=== PATIENT | male | born 1940 | race Caucasian/White ===

== ENCOUNTER 2022-01-21 14:21 | Emergency (ER) | payer MEDICARE, BC, SELFPAY ==
--- NOTE | 2022-01-21 14:37 | CRLHL7_ITS ---
For Patients: As a result of the Century Cures Act, medical imaging exams and procedure reports are released immediately into your electronic medical record. You may view this report before your referring provider. If you have questions, please contact your health care provider. INDICATION: Fall. COMPARISON: None. TECHNIQUE: CT of the head without IV contrast. Coronal and sagittal reconstructions. FINDINGS: No intracranial hemorrhage, mass effect, or evidence of acute infarct. No midline shift. No abnormal extra-axial fluid collections. Mild to moderate generalized cerebral and cerebellar volume loss with associated ex vacuo dilation of the lateral ventricles. Mild chronic small vessel ischemic disease. Intracranial vascular calcifications. Orbits and extraocular muscles are symmetric. The paranasal sinuses and mastoid air cells are clear. No acute fracture identified. Soft tissue swelling/hematoma overlying the left posterior parietal bone. IMPRESSION: : 1. No acute intracranial findings. 2. Mild to moderate generalized volume loss and mild chronic small vessel ischemic disease. 3. Soft tissue swelling/hematoma overlying the left posterior parietal bone. Please note that all CT scans at this facility use dose modulation, iterative reconstruction, and/or weight-based dosing when appropriate to reduce radiation dose to as low as reasonably achievable. Dictated by Ora Dimas MD @ 01/21/2022 3:04:29 PM (Electronically Signed)
--- NOTE | 2022-01-21 14:37 | CRLHL7_ITS ---
For Patients: As a result of the Century Cures Act, medical imaging exams and procedure reports are released immediately into your electronic medical record. You may view this report before your referring provider. If you have questions, please contact your health care provider. Indication: Trauma. Technique: CT of the cervical spine without IV contrast. Coronal and sagittal reconstructions. Comparison: None. Findings: No acute fracture or traumatic malalignment of the cervical spine. Chronic appearing mild anterior wedging C5. Normal vertebral body alignment. Straightening of the normal cervical lordosis. Spondylotic changes including endplate spurring, facet arthropathy, and disc space narrowing. Multilevel varying degrees of neural foraminal narrowing. Moderate spinal canal stenosis at C5-C6 and C6-C7. No prevertebral soft tissue swelling. Visualized intracranial contents are unremarkable. The mastoid air cells are clear. Right thyroid nodules measuring up to 2.4 cm in size. The imaged lung apices are clear. Partially visualized left chest pacemaker. Impression: 1. No acute fracture or traumatic malalignment of the cervical spine. 2. Spondylotic changes of the cervical spine as described above. 3. Right thyroid nodules measuring up to 2.4 cm in size. Please note that all CT scans at this facility use dose modulation, iterative reconstruction, and/or weight-based dosing when appropriate to reduce radiation dose to as low as reasonably achievable. Dictated by Ora Dimas MD @ 01/21/2022 3:14:02 PM (Electronically Signed)
--- NOTE | 2022-01-21 14:37 | CRLHL7_ITS ---
For Patients: As a result of the Century Cures Act, medical imaging exams and procedure reports are released immediately into your electronic medical record. You may view this report before your referring provider. If you have questions, please contact your health care provider. Indication: Trauma. Technique: CT of the lumbar spine without IV contrast. Coronal and sagittal reconstructions. Comparison: None. Findings: There are 5 lumbar type vertebral bodies. No acute fracture or traumatic malalignment of the lumbar spine. Vertebral body and disc space heights are well maintained. Normal vertebral body alignment. Multilevel endplate spurring and facet arthropathy. Disc bulge at L4-L5. Moderate to severe spinal canal stenosis at L2-L3, L3-L4, and L4-L5. No paravertebral soft tissue swelling. The visualized sacroiliac joints are normal in appearance. Aortoiliac vascular calcifications. Impression: 1. No acute fracture or traumatic malalignment of the lumbar spine. 2. 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 Please note that all CT scans at this facility use dose modulation, iterative reconstruction, and/or weight-based dosing when appropriate to reduce radiation dose to as low as reasonably achievable. Dictated by Ora Dimas MD @ 01/21/2022 3:35:13 PM (Electronically Signed)
--- NOTE | 2022-01-21 14:37 | CRLHL7_ITS ---
For Patients: As a result of the Century Cures Act, medical imaging exams and procedure reports are released immediately into your electronic medical record. You may view this report before your referring provider. If you have questions, please contact your health care provider. Indication: Trauma. Technique: CT of the thoracic spine without IV contrast. Coronal and sagittal reconstructions. Comparison: None. Findings: There are 12 rib-bearing thoracic type vertebral bodies. No acute fracture or traumatic malalignment of the thoracic spine. Chronic appearing minimal anterior wedging of a few lower thoracic vertebral bodies. Normal vertebral body alignment. Multilevel prominent endplate spurring. No significant spinal canal stenosis. No paravertebral soft tissue swelling. Right thyroid nodules measuring up to 2.4 cm in size. Left chest pacemaker. Coronary artery calcifications. Calcified right hilar lymph nodes compatible with prior granulomatous disease. Calcified granulomas right lung. Bibasilar atelectasis. Calcified splenic granulomas. Impression: 1. No acute fracture or traumatic malalignment of the thoracic spine. 2. Chronic appearing minimal anterior wedging of a few lower thoracic vertebral bodies. 3. Prominent multilevel endplate spurring. 4. Right thyroid nodules measuring up to 2.4 cm in size. Please note that all CT scans at this facility use dose modulation, iterative reconstruction, and/or weight-based dosing when appropriate to reduce radiation dose to as low as reasonably achievable. Dictated by Ora Dimas MD @ 01/21/2022 3:26:52 PM (Electronically Signed)
[2022-01-21 14:38] VITALS: BP 132/84; PULSE 63; RESP 18; TEMP 36.2; O2SAT 98; BMI 38.3
--- NOTE | 2022-01-21 15:08 | ED_ITS ---
HPI - General Adult General Chief complaint: Fall/Minor Trauma Stated complaint: Fall Time Seen by Provider: 01/21/22 14:26 Source: patient Mode of arrival: EMS Limitations: no limitations History of Present Illness HPI narrative: Patient is an 82-year-old male who, approximately 2-1/2 hours prior to presenting to the ER, was out in the field on his tractor when he fell off of the tractor. Patient states he lost his balance and fell backwards hitting his head on the ground. He is not sure if he lost consciousness, unsure how long he was out there. He remembers waking up and walking back inside the house. His called the neighbor who brought him to the clinic in [place]. From there, EMS was called and he was brought to the ER. He was complaining of a headache, nausea and neck discomfort to EMS. Now, upon arrival, he states that his headache is gone and he is no longer nauseated. He does have a cervical collar on which is causing him discomfort. He is also complaining of low back pain. He denies any loss of bowel or bladder function, he did not bite his tongue. He is not confused or foggy. TTA was called, patient arrived via EMS. Last tetanus was in 2008. Related Data Home Medications Medication Instructions Recorded Confirmed atorvastatin 80 mg tablet mg 01/21/22 glimepiride 4 mg tablet mg 01/21/22 insulin syringe-needle U-100 1/2 01/21/22 01/21/22 mL 31 gauge x 15/64 (BD Veo Insulin Syringe Ultra-Fine) isosorbide mononitrate 30 mg mg PO 01/21/22 tablet,extended release 24 hr lisinopril 10 mg tablet mg 01/21/22 metformin 1,000 mg tablet mg 01/21/22 metoprolol tartrate 25 mg tablet mg 01/21/22 Allergies Allergy/AdvReac Type Severity Reaction Status Date / Time No Known Drug Allergies Allergy Verified 01/21/22 14:43 Review of Systems Status of ROS: Reports: 10 or more systems reviewed and unremarkable except as noted in History and below Exam Narrative: Exam Narrative: GCS is 15. Patient is breathing and speaking without any difficulty. He does have some bleeding from the posterior parietal scalp. Overweight, well-developed patient in no acute distress. Alert and oriented x3. Answers questions appropriately. Mood and affect are appropriate. Thoughts are goal oriented and rational. No tangential or magical thinking noted. Patient speaks in full sentences without needing to catch his breath. HEENT: Normocephalic . Just less than 1 cm long Laceration to the left posterior parietal scalp area. Pupils are equally round reactive to light. Extraocular muscles are intact. Conjunctivae are moist without any icterus noted. Moist mucous membranes. Posterior pharynx is normal. Neck is soft without any lymphadenopathy or thyromegaly. No masses are appreciated. Cardiovascular: Heart is regular rate and rhythm S1 and S2 are present without any murmurs. Lungs: Clear to auscultation bilaterally no wheezes rhonchi or rales are appreciated. Patient takes deep breaths without any discomfort. Abdomen: Protuberant, Soft and nontender nondistended with normal bowel sounds. No guarding or rebound. Difficult to assess for organomegaly secondary to body habitus. Extremities: Bilateral lower extremities are without edema. Normal DP and PT pulses. Skin: Well perfused without any obvious rashes. Back: Cervical collar in place-No tenderness to palpation of the cervical, thoracic or lumbar spine. He has some para spinal muscular discomfort in the low back bilaterally. Const: Vital Signs, click to edit/add: Vital Signs - 24 hr 01/21/22 14:38 Temperature 97.1 F L Pulse Rate [Right Pulse Oximeter] 63 Respiratory Rate 18 Blood Pressure [Le ft Upper Arm] 132/84 Pulse Oximetry 98 Oxygen Delivery Me thod Room Air Course Course Hospital Course: Upon arrival, a very quick assessment was done and patient was sent to CT where he had a head in full spine CT imaging done given his complaints of headache, nausea and back pain. Imaging was unremarkable. Cervical collar was removed. Scalp laceration was cleaned and anesthetized with lidocaine with epinephrine. Running suture with 3.0 Prolene was placed. Laceration was dressed per nursing. Tetanus shot was updated. Vital Signs Vital signs: Initial Vital Signs Temperature 97.1 F L 01/21/22 14:38 Temperature Source Temporal Artery Scan 01/21/22 14:38 Pulse Rate 63 10 14:38 Respiratory Rate 18 01/21/22 14:38 Blood Pressure 132/84 01/21/22 14:38 Blood Pressure Mean 100 01/21/22 14:38 Blood Pressure Position Sitting 01/21/22 14:38 Pulse Oximetry 98 01/21/22 14:38 Oxygen Delivery Method 01/21/22 14:38 Vital Signs Temperature 97.1 F L 01/21/22 14:38 Pulse Rate 63 01/21/22 14:38 Respiratory Rate 18 01/21/22 14:38 Blood Pressure 132/84 01/21/22 14:38 Pulse Oximetry 98 01/21/22 14:38 Oxygen Delivery Method 01/21/22 14:38 Temperature 97.1 F L 01/21/22 14:38 Pulse Rate 63 01/21/22 14:38 Respiratory Rate 18 01/21/22 14:38 Blood Pressure 132/84 01/21/22 14:38 Pulse Oximetry 98 01/21/22 14:38 Oxygen Delivery Method 01/21/22 14:38 Medical Decision Making MDM Narrative Medical decision making narrative: 82-year-old male status post fall off a tractor with a scalp laceration. No evidence of fractures or hemorrhage. Remainder of exam unremarkable. We discussed wound hygiene, signs and symptoms of infections, reasons to return for follow-up. We discussed feel he will be have increased soreness tomorrow. Patient was agreeable and had no other questions. Medical Records Medical records reviewed: Yes I reviewed the patient's medical records Imaging Data CT scan - head: Attestation: I have reviewed the pertinent imaging results. My impression: No acute intracranial bleed Radiologist's impression: CT of the head without IV contrast. Coronal and sagittal reconstructions. FINDINGS: No intracranial hemorrhage, mass effect, or evidence of acute infarct. No midline shift. No abnormal extra-axial fluid collections. Mild to moderate generalized cerebral and cerebellar volume loss with associated ex vacuo dilation of the lateral ventricles. Mild chronic small vessel ischemic disease. Intracranial vascular calcifications. Orbits and extraocular muscles are symmetric.? The paranasal sinuses and mastoid air cells are? clear. No acute fracture identified. Soft tissue swelling/hematoma overlying the left posterior parietal bone. IMPRESSION: : 1. No acute intracranial findings. 2. Mild to moderate generalized volume loss and mild chronic small vessel ischemic disease. 3. Soft tissue swelling/hematoma overlying the left posterior parietal bone. Cervical spine CT: Attestation: I have reviewed the pertinent imaging results. Radiologist's impression: CT of the cervical spine without IV contrast. Coronal and sagittal reconstructions. Comparison: None. Findings: No acute fracture or traumatic malalignment of the cervical spine. Chronic appea ring mild anterior wedging C5. Normal vertebral body alignment. Straightening of the normal cervical lordosis. Spondylotic changes including endplate spurring, facet arthropathy, and disc space narrowing. Multilevel varying degrees of neural foraminal narrowing. Moderate spinal canal stenosis at C5-C6 and C6-C7. No prevertebral soft tissue swelling. Visualized intracranial contents are unremarkable. The mastoid air cells are clear. Right thyroid nodules measuring up to 2.4 cm in size. The imaged lung apices are clear. Partially visualized left chest pacemaker. Impression: 1. No acute fracture or traumatic malalignment of the cervical spine. 2. Spondylotic changes of the cervical spine as described above. 3. Right thyroid nodules measuring up to 2.4 cm in size. Thoracic spine CT: Attestation: I have reviewed the pertinent imaging results. Radiologist's impression: CT of the thoracic spine without IV contrast. Coronal and sagittal reconstructions. Comparison: None. Findings: There are 12 rib-bearing thoracic type vertebral bodies. No acute fracture or traumatic malalignment of the thoracic spine. Chronic appearing minimal anterior wedging of a few lower thoracic vertebral bodies. Normal vertebral body alignment. Multilevel prominent endplate spurring. No significant spinal canal stenosis. No paravertebral soft tissue swelling. Right thyroid nodules measuring up to 2.4 cm in size. Left chest pacemaker. Coronary artery calcifications. Calcified right hilar lymph nodes compatible with prior granulomatous disease. Calcified granulomas right lung. Bibasilar atelectasis. Calcified splenic granulomas. Impression: 1. No acute fracture or traumatic malalignment of the thoracic spine. 2. Chronic appearing minimal anterior wedging of a few lower thoracic vertebral bodies. 3. Prominent multilevel endplate spurring. 4. Right thyroid nodules measuring up to 2.4 cm in size. Lumbar spine CT: Attestation: I have reviewed the pertinent imaging results. Radiologist's impression: CT of the lumbar spine without IV contrast. Coronal and sagittal reconstructions. Comparison: None. Findings: There are 5 lumbar type vertebral bodies. No acute fracture or traumatic malalignment of the lumbar spine. Vertebral body and disc space heights are well maintained. Normal vertebral body alignment. Multilevel endplate spurring and facet arthropathy. Disc bulge at L4-L5. Moderate to severe spinal canal stenosis at L2-L3, L3-L4, and L4-L5. No paravertebral soft tissue swelling. The visualized sacroiliac joints are normal in appearance. Aortoiliac vascular calcifications. Impression: 1. No acute fracture or traumatic malalignment of the lumbar spine. 2. 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 Discharge Plan Discharge Clinical Impression: Fall, Laceration of scalp Patient Disposition: Home, Self-Care Condition: Improved Additional Instructions: Keep head clean and dry. Okay to shower like you normally would but be careful when you wash your hair not to snag the sutures. Sutures should come out in approximately 7 days-make an appointment with your primary care provider to have them removed in the clinic. Watch for signs of infection of the area which include redness or drainage of purulent material from the laceration. Expect to be more sore tomorrow especially around the neck and back area. You can use Tylenol and heat, do not apply heat directly to skin. If you develop increasing confusion, vomiting or lethargy return to the ER right away. Prescriptions: No Action atorvastatin 80 mg tablet Label Comments: TAKE ? TABLET BY MOUTH ONCE DAILY isosorbide mononitrate 30 mg tablet extended release 24 hr PO Label Comments: TAKE HALF TABLET BY MOUTH DAILY metformin 1,000 mg tablet Label Comments: TAKE 1 TABLET BY MOUTH TWICE DAILY with meals lisinopril 10 mg tablet Label Comments: TAKE 1 TABLET BY MOUTH DAILY glimepiride 4 mg tablet Label Comments: TAKE ONE TABLET BY MOUTH ONE TIME DAILY WITH FOOD metoprolol tartrate 25 mg tablet Label Comments: TAKE ONE TABLET BY MOUTH TWICE DAILY FOR BLOOD PRESSURE AND HEART (DME) insulin syringe-needle U-100 [BD Veo Insulin Syringe UF] 1/2 mL 31 gauge x 15/64 syringe MISCELLANEOUS Label Comments: use to inject insulin injections twice daily. Follow Up/Referrals: Trace Quijano MD [Primary Care Provider] - Stand Alone Forms: [facility] [employer] Info Instructions
--- OUTSIDE RECORDS SUMMARY | 2022-01-21 16:11 | XMS_ITS | Clinical Summary ---
:1940 Author Organization [facility] [place] [address] Care Team Providers Name Role Phone Trace Quijano MD Primary Care Provider [phone] Glenn Birch MD Unavailable Charlotte Ricks MD Unavailable Malachi Gonzales MD Unavailable Walt Garrido DPM Unavailable Sky Metcalf MD Unavailable Allergies No known active allergies Medications Medication Sig Dispensed Refills Start End Status Date Date BLOOD PRESSURE UUD 1 0 Activ e CUFFIndications: 7 Coronary atherosclerosis of unspecified type of vessel, [place] or graft, Unspecified essential hypertension DIABETIC As directed. 1 1 Each 0 Activ e SHOEIndications: diabetic pair of 2 Type II or shoes for home unspecified type use. Diagnosis diabetes mellitus Type 2 Diabetes with neurological mellitus. manifestations, not stated as uncontrolled(250.60 ) aspirin enteric Take 1 tablet by 0 Active coated (ECOTRIN) mouth once daily 5 325 mg tablet with a meal. medication order Eye 0 Act kamlesh composer multivitamin, 9 Focus miscellaneous As directed. 1 Each 0 Act [facility] supply Home blood 0 (BLOOD PRESSURE pressure CUFF) monitoring for miscIndications: Essential Essential hypertension hypertension Diagnosis. Upper arm automatic Cuff. nitroglycerin Place 1 Tablet 25 tablet. 3 Active (NITROSTAT) 0.4 mg (0.4 mg) under 1 sublingual the tongue every tabletIndications: 5 minutes if Atherosclerosis of needed for Chest coronary artery, Pain. Use up to angina presence 3 doses in 15 unspecified, minutes. unspecified vessel or lesion type, unspecified whether [place] or transplanted heart insulin For insulin 200 Each 3 Active syringe-needle injections twice 1 U-100 1/2 mL 31 daily. 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 Diagnosis 1 with neurological Type 2 Diabetes, manifestations, on insulin. Fast uncontrolled Click blood-glucose Dispense meter, 1 Each 0 Active meterIndications: test strips, 1 Diabetes mellitus lancets covered with neurological by pt ins. E11.9 manifestations, NIDDM type II - uncontrolled Test 2 times/day. Reason: low blood sugar and on insulin. Accucheck guide meter CPAPIndications: CPAP machine for 1 Each 11 Active GERMÁN (obstructive home use at 1 sleep apnea) pressure 10 cmw, full face mask x1/3month with a full face cushion x1/mo medication order Inject As 0 Act kamlesh composer Directed. 2 Patient gets lucentis injection into right eye every 3 months metFORMIN Take 1 Tablet 180 Tablet 2 Activ e (GLUCOPHAGE) 1,000 (1,000 mg) by 2 mg mouth 2 times tabletIndications: daily with Diabetes mellitus meals. For type 2 with diabetes. neurological manifestations (HC) lisinopriL Take 1 Tablet 90 tablet. 2 Acti ve (PRINIVIL; ZESTRIL) (10 mg) by mouth 2 10 mg once daily. For tabletIndications: blood pressure. Primary hypertension atorvastatin TAKE 1/2 90 tablet. 2 Active (LIPITOR) 80 mg (ONE-HALF) 2 tabletIndications: TABLET BY MOUTH Coronary artery ONCE DAILY FOR disease due to CHOLESTEROL lipid rich plaque blood sugar Test 2 times per 200 Each 3 A ctive diagnostic (Blood day. On insulin. 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 (HC) metoprolol tartrate Take 1 Tablet 180 Tablet 3 Active (LOPRESSOR) 50 mg (50 mg) by mouth 2 tabletIndications: 2 times daily. HTN (hypertension) isosorbide Take 0.5 Tablets 45 Tablet 3 Ac tive mononitrate (IMDUR) (15 mg) by mouth 2 30 mg extended once daily. release tablet 24 HourIndications: Coronary artery disease due to lipid rich plaque glimepiride TAKE ONE TABLET 90 Tablet 2 Ac tive (AMARYL) 4 mg BY MOUTH DAILY 2 tabletIndications: WITH A MEAL FOR Diabetes mellitus DIABETES type 2 with neurological manifestations (HC) insulin nph-regular INJECT 51 UNITS 60 mL 2 Active (NovoLIN 70/30 SUBCUTANEOUS IN 2 U-100 Insulin) 100 THE MORNING unit/mL (70-30) BEFORE MEALS. 46 injIndications: U IN THE EVENING Controlled type 2 W SUPPER MEAL. diabetes mellitus with complication, with long-term current use of insulin (HC) insulin nph-regular INJECT 44 UNITS 60 mL 2 12/16 Discontinued (NOVOLIN 70/30) 100 SUBCUTANEOUS 7 022 (Reorder unit/mL (70-30) TWICE DAILY (E -cancel not injectionIndication BEFORE MEALS sent)) s: Controlled type 2 diabetes mellitus with complication, with long-term current use of insulin (HC) Active Problems Problem Noted Date Major depressive disorder, single episode, mild 2021 Hyperparathyroidism, secondary renal 08/02/2021 Stage 3a chronic kidney disease 08/02/2021 Hyperopia of both eyes with astigmatism and presbyopia 04/27/2021 Pterygium eye, left 04/27/2021 Bilateral pseudophakia 04/27/2021 AMD (age-related macular degeneration), bilateral 04/17 Mild depression 03/29/2020 Morbid (severe) obesity due to excess calories 12/13/2 020 Presence of permanent cardiac pacemaker 10/14/2019 Overview: Formatting of this note is dif ferent from the original. September 2019: DCPPM placed for Chronotropic incompetence??and bradycardia (sinus node dysfunction) with evidence of junctional escape. Vitamin D deficiency 04/30/2018 Overview: August 2017: Vitamin D 19.5, April 2018: treating with Vitamin D 5,000 Units. Esophageal dysphagia 01/14/2017 Overview: Dec 2016: food getting stuck For years . Trying omeprazole. No previous EGD. GERMÁN 06/10/2002 AHI- 16 03/05/2015 Diabetic neuropathy, painful 10/05/2012 Adenomatous colon polyp 08/03/2012 Overview: Colonoscopy 07/2012 polyps, repeat in 5 y ears so due 2017. Pain in joint, shoulder region 07/04/2012 Overview: MRI Feb 2012 of Right shoulder; mild Sup raspinatus tendonopathy without tear and mild AC Joint DJD/subdeltoid bursitis. Obesity (BMI 30-39.9) 11/05/2010 Chronic kidney disease 01/07/2010 Overview: December 2009 and: Creatinine equals 1. 32. March 2010: Creatinine 1.52 and GFR: 45. May 2010: Creatinine 1.35 and GFR: 52. September 2012: Creatinine 1.32 and GFR: Jan: Creatinine 1.37 and GFR 51. Feb 2015: Creatinine 1.3 and GFR 53. September 2016: Creatinine 1.44 and GFR 48. Dec 2016: Creatinine 1.67, GFR 40. REfe rring to nephrology consult, saw Dr. Ricks for consult Jan 2017. July 2018: Creatinine 1.5, GFR 45. Hypotestosteronism 10/13/2009 Overview: [facility] 09/30/09: to do IM testosterone injections at [facility]? Erectile dysfunction 05/02/2008 Overview: ON smiley, seeing [facility]: November 03: cialis and pump. Follow up 06/17/09: checking testosterone. Low testosterone, replacement with injec tions started 09/30/09: see [facility] note. Cor athrscl-uns vessel 09/20/2006 Overview: ~ [address] Barnes. ~ 3 vessel bypass 06/16/06: HUNT to LAD an d Saph Vein to Obtuse [place] and PDA. VASCULAR CARE INITIATIVE ~ Jun 09: stress Cardiolite at [facility] Heart: no ischemia and Ejection fraction of 55% ~ October 2010: Thalium Stress Test: Medium sized ischemic defect involving the anterior, anterolateral, and inferolateral vieira. There is a very small amount of underlying infarction in the inferolateral wall associated with this defect. 2. 24- hour delayed imaging shows complete viability in the small inferolateral infarct zone. Unspecified disease of pericardium 09/20/2006 Overview: 06/28-07/05/06 around time of coronary art lucio bypass. Echo on 07/14/06 cleared. Atrial fibrillation 06/26/2006 Regular astigmatism 04/14/2006 Presbyopia 04/14/2006 Hypermetropia 04/14/2006 CATARACT, NUCLEAR 04/05/2005 Diabetes mellitus with neurological manifestations, un controlled 06/08/2001 Overview: Goal for A1c is <8. History of coronary artery disease. March 2013: No diabetic eye disease. [facility]. May 2010: Metformin decreased to 1000 tw ice daily (from 1500 am and 1000pm) due to insurance only covering 1000 twice daily. March 2013: Continue levemir, if cost goes up next year with insurance karla dailey', consider changing to 70/30 Nph/Regular insulin if needed. July 2013: Adding short acting meal ins ulin and also changed glyburide to glimepiride due to cost and hypoglycemia resk. Switched to Humalog 75/25 mix BID. 07/11/18: no Diabetic retinopathy at eye Clinic visit. Hypercholesterolemia 02/23/2000 Overview: June 2011: Cardiology changed from simv astatin 40 to lipitor 40 + fish oils. Primary hypertension 02/23/2000 Overview: September 2016: due to light headed symptoms, decreased lisinopril from 40 to 20mg to see if imrpoves. April 2017: Dr. Ricks decreased lisinop ril to 10mg. Resolved Problems Problem Noted Date Resolved Date GERMÁN 06/10/2002 AHI- 16 06/04/2012 02/24/2015 Prostate cancer 05/02/2008 08/02/2021 Overview: s/p radical prostatectamy 2006. DIABETES MELLITUS TYPE II--w/o eye disease 06/13/2007 01/19/2009 PTERYGIUM, PERIPHERAL STATIONARY--s/p excision 06/05/2007 06/05/2007 Obstructive sleep apnea 09/20/2006 12/25/2017 Overview: 06/10/2002: AHI 16. 2002 got CPAP. New machine around 2007. Coronary atherosclerosis of unspecified type of vessel, mary ve 05/25/2005 09/20/2006 or graft PTERYGIUM, PERIPHERAL STATIONARY 04/05/2005 008 Contact dermatitis and other eczema due to plants (except fo od) 11/25/2004 09/20/2006 Chest pain, unspecified 10/11/2004 05/25/2005 Sebaceous cyst 07/09/2004 05/25/2005 ROTATOR CUFF SPRAIN 03/16/2001 09/20/2006 ATHEROSCLEROSIS, CORONARY 02/23/2000 05/25/2005 DIABETES 11/25/2004 Overview: date is when problem was entered Encounters Date Type Specialty Care Team Description 01/21/2022 Office Visit Philip Gallegos Laceratio n (Pt fell from tractor on to liborio weathers. Hit head.) 01/21/2022 Travel 01/21/2022 Nurse Triage Trace Quijano Fall; Head Lac eration MD Rosita 01/21/2022 Refill Trace Quijano Refill Request (Bd Ellie Becker MD Insulin Syringe Uf) 01/13/2022 Telephone Trace Quijano Form (PHYSICIA N'S ORDER) MD Rosita 01/03/2022 Office Visit Trace Quijano Medicare ALCON Becker MD (subsequent) Vi sit 01/03/2022 Travel 12/08/2021 Procedure Only Device Check (In-Clinic Medtronic Dual Unique... 12/06/2021 Office Visit Trace Quijano Diabetes; Foll ow Up (Knee MD Rosita pain/arthritis ) 12/06/2021 Travel 11/01/2021 Ancillary Procedure 11/01/2021 Office Visit [facility] Musculoskeleta l Problem IZA Silvestre (Both knees ar e painful, left knee has b een hurting for 3 weeks, in jured right knee back in [facility] with a fall, lower josy k pain ) 11/01/2021 Travel from Last 3 Months Immunizations Name Administration Dates Next Due AMB Influenza, IIV3 (Age >=3 years) 01/20/2009 Preserve Free (Flu Clinic Only) AMB Influenza, IIV3 (Age >=3 02/02/2010 years)(Flu Clinic Only) COVID-19 vaccine ([employer] 06/30/2020, 06/09/2020 30mcg/0.3mL) THERESE, MDV Influenza, High-dose Inactivated 12/07/2015, 02/24/2015, Influenza, IIV3 (Age >=3 years) 01/08/2013, 02/06/2012, 01/16, 02/11/2008, 02/13/2007, 03/14/2005, 01/26/2004, 02/18/2002, 02/05/2001, 02/29/2000 Influenza, IIV4 01/13/2017 Influenza, Inactivated AIIV4 (Age 65+ 03/18/2021, 03/30/2020 Years) Preserv Free Influenza, Inactivated IIV3 (Age 65+ 04/01/2019, 12/25/2017 Years) Preserv Free Pneumococcal Poly,23-Valent 07/22/2013, 01/10/2003 (Pneumovax) Pneumococcal conj 13-Valent (Prevnar 12/07/2015 13) Td (Age >=7 Years) 04/17/1999 Td, Preservative Free (age >= 7 03/09/2009 Years) Family History Medical History Relation Name Comments Cancer Brother 1 Heart Disease Brother 2 Eder Diabetes type II Mother Genetic Other positive for cor anary artery disease Cancer Sister Relation Name Status Comments Brother 1 Brother 2 Eder Mother Other Sister Social History Tobacco Use Types Packs/Day Years Used Date Former Smoker Cigarettes 05 11 1955 - 985 Smokeless Tobacco: Never Used Tobacco Cessation: Counseling Given: Yes Comments: quit 20 yrs ago Alcohol Use Standard Drinks/Week Comments No 0 (1 standard drink = 0.6 oz pure alcoho l) Alcoholic Drinks/day: 0 Sex Assigned at Date Recorded Not on file COVID-19 Exposure Response Date Recorded In the last 10 days, have you been in contact with No / Unsu re 01/21/2022 1:18 PM CDT someone who was confirmed or suspected to have Coronavirus/COVID-19? Obstetrics History Last Filed Vital Signs Vital Sign Reading Time Taken Comments Blood Pressure 154/90 01/21/2022 3:38 PM CDT Pulse 69 01/21/2022 3:38 PM CDT Temperature 35.7 ??C (96.3 ??F) 11/15/2019 9:23 AM CDT Respiratory Rate 16 02/12/2021 9:29 AM CDT Oxygen Saturation 96% 01/21/2022 1:10 PM CDT room ai r Inhaled Oxygen Concentration - - Weight 129.3 kg (285 lb) 01/21/2022 3:38 PM CDT Height 185.4 cm (6' 0.99) 01/21/2022 3:38 PM CDT Body Mass Index 37.61 01/21/2022 3:38 PM CDT Plan of Treatment Upcoming Encounters Date Type Specialty Care Team Description 02/07/2022 [place] [address] [place] [address] (Wo rk) 03/07/2022 Office Visit Pina Renteria FLEET MAINTENANCE MANAGER [address] [facility] [address] [place], [place] [address] (Wo rk) 03/22/2022 Procedure Only 03/28/2022 [place] [address] [place], [place] [address] (Wo rk) Health Maintenance Due Date Last Done Comments Tdap 1950 Zoster (shingles) series for age 0901/12/1989 50+ (1 of 2) Tetanus booster 03/09/2019 03/09/2009, 04/17/1999 COVID-19 vaccine series (5 - 11/16/2021 09/21/2021, 021, Booster for Pfizer series) 06/30/2020, Additiona l history exists Influenza for age 65+ 12/16/2021 03/18/2021, 03/30/2020, 04/01/2019, Additional history exists Depression screening for age 12+ 01/03/2023 01/03/2022, , 12/07/2020, Additional history exists Medicare Wellness for age 65+ 01/03/2023 01/03/2022, 2020, 04/30/2018 BMI (ht and wt on same day) for 01/21/2023 01/21/2022, 12/16, age 18+ 02/12/2021, Additional history exists Pneumococcal series for age 65+ Completed 12/07/2015, 10/2013, 01/10/2003 Procedures Procedure Name Priority Date/Time Associated Diagnosis Comme nts GLUCOSE, RANDOM STAT 01/21/2022 1:29 PM Accidental fall, Re sults for this CDT initial encounter procedure are in the results section. HEMOGLOBIN A1C Routine 12/06/2021 9:06 AM Diabetes mellitus ty pe Results for this CDT 2 with neurological procedur e are in manifestations (HC) the resu lts section. XR KNEE WB 2 VIEWS Routine 11/01/2021 1:33 PM Chronic pain of both Results for this BILATERAL AND 2 CDT knees procedure ar e in VIEWS BILATERAL the results section. from Last 3 Months Results (ABNORMAL) GLUCOSE, RANDOM (01/21/2022 1:29 PM CDT) P athologist Signature GLUCOSE,RANDOM 186 (H) 65 - 140 01/21/2022 [facility] mg/dL 1:29 PM CDT [facility] Specimen Anatomical Collection Method Collection Time Receive d Time (Source) Location / / Volume Laterality Blood BLOOD SPECIMEN / Capillary / 01/21/2022 1:29 PM 01/21 1:29 Unknown Unknown CDT PM CDT Trace Quijano MD CHEMISTRY Performing Organization Address [facility] Phon e Number [facility] [address] [place], [place] [address] [facility] (ABNORMAL) HEMOGLOBIN A1C MONITORING (POCT) (12/06/2021 9:06 AM CDT) Analysis Performed At Patho logist Time Signature HEMOGLOBIN A1C 7.3 (H) <=6.4 % 12/06/2021 [facility] 9:12 AM CDT [facility] Specimen Anatomical Collection Method / Collection Time Recei kermit Time (Source) Location / Volume Laterality Blood BLOOD SPECIMEN / Venipuncture / 12/06/2021 9:06 2021 9:06 Unknown Unknown AM CDT AM CDT Narrative [facility] [place] 9:12 AM CDT ? (<=6.9%) ? Indicates good control ? (7.0% to 7.9%) ? Indicates fa ir control ? (>=8.0%) ? Indicates poor control ?? NOTE: ??These thresholds are guideli odell and ?individual targets may va ry. Falsely low levels may be seen with: Recent Transfusion, Recent Significant B lood Loss, Hemolytic Diseases, or Falsely elevated levels may be seen with : Untreated Anemias, Splenectomy ? Trace Quijano MD CHEMISTRY Performing Organization Address City/[facility]/ZIP Code Phon e Number [facility] [address] [facility] [place] [place] [address] CLINIC XR KNEE WB 2 VIEWS BILATERAL AND 2 VIEWS BILATERAL (11/01/2021 1:33 PM CDT) Anatomical Region Laterality Modality KNEES Computed Radiography Specimen (Source) Anatomical Collection Method Collection Time Re ceived Time Location / / Volume Laterality 11/01/2021 2:01 PM CDT Narrative 11/01/2021 2:01 PM CDT For Patients: ??As a result of the Cures Act, medical imaging exams and procedure report s are released immediately into your [facility] medical record. ??You may view this report before your referring provider. ??If you have questions, please contact your health care provider. Indication: Bilateral knee pain Technique: Bilateral knee AP, lateral and sunrise 6 views Comparison: None Findings: Right knee: Mild medial and patellofemor al compartment spurring. No joint effusion or fracture. Vascular calcifications and postoperative change. Left knee: Mild medial compartment and p atellofemoral compartment degenerative spurring. Spurring at the quadriceps tendon insertion to the superior patella. Vascular calcifications. 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 Dictated by Larry Fairchild MD @ Nov 01 ??2:01PM (Electronically Signed) ?? Procedure Note Larry Fairchild MD - 11/01/2021For matting of this note might be different from the original. For Patients: As a result of the Cures Act, medical imaging exams and procedure reports are released immediately into your electronic medical record. You may view this report before your referring provider. If you have questions, please contact yo health care provider. Indication: Bilateral knee pain Technique: Bilateral knee AP, lateral and sunrise 6 views Comparison: None Findings: Right knee: Mild medial and patellofemor al compartment spurring. No joint effusion or fracture. Vascular calcifications and postoperative change. Left knee: Mild medial compartment and p atellofemoral compartment degenerative spurring. Spurring at the quadriceps tendon insertion to the superior patella. Vascular calcifications. 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 Dictated by Larry Fairchild MD @ Nov 01 2:01PM (Electronically Signed) [facility] from Last 3 Months Insurance Payer Benefit Plan / Subscriber ID Effective Dates Phone Addre ss Type Group MEDICARE PART B MEDICARE PART B [id number] 2003-Presen ATTN: CLAIMS - HB USE ONLY HB ONLY t [address] [place] [address] MEDICARE PART A MEDICARE PART A [id number] 2003-Presen ATTN: CLAIMS - HB USE ONLY HB ONLY t [address] [place] [address] MEDICARE - PB MEDICARE PB [id number] 2018-Presen ATTN : CLAIMS USE ONLY ONLY t [address] [facility] [place] [address] BLUE CROSS BLUE CROSS OF [id number] 2018-Presen [address] [place] [address] Advance Directives Latest Code Status on File Code Status Date Activated Date Inactivated Comments Full Code 10/11/2019 9:37 AM 10/12/2019 1:10 PM Full Code 11/05/2010 2:40 PM 11/06/2010 2:18 PM Full Code 11/05/2010 6:48 AM 11/05/2010 2:40 PM Care Teams Power Station Operator Relationship Specialty Start Date End Date Trace Quijano MD PCP - General 05/30/08 [address] [place] [address] Glenn Birch MD Cardiology Cardiovascular Disease 01/08/13 Charlotte Ricks MD Nephrology Nephrology 02/06/17 [address] [facility] [address] [place] [id number] Malachi Gonzales MD Ophthalmology Surgery - Ophthalmology 08/03/20 [address] [place] [id number] Walt Garrido, DPM PODIATRY Surgery - Podiatric 12/07/20 [address] [place] [address] Sky Metcalf MD Sleep Medicine 12/07/20 [address] [place] [address]
[2022-01-21] MEDS: TETANUS/DIPHTH/PERTUSSIS 0.5 ML SYRINGE IM (16:33)
--- NOTE | 2022-01-21 16:56 | ED.NURSE ---
Head cleansed and bacitracin applied. Tdap administered and patient discharged to home with family.
--- NOTE | 2022-01-21 17:40 | ED.NURSE ---
Vital signs documented on TTA record.
--- NOTE | 2022-01-21 17:42 | ED.NURSE ---
Called and spoke to Riddhi, patient's to inform of incidental finding of thyroid nodule and to mention to primary provider at follow up.
== END 2022-01-21 17:46 | disposition home or self-care (01) ==
PROVIDERS: Emergency Provider Family Medicine; PCP Family Medicine
DX: S01.01XA Laceration without foreign body of scalp, initial encounter (principal); V84.5XXA Driver of special agricultural vehicle injured in nontraffic accident, initial encounter
CPT/HCPCS: 70450; 72125; 72128; 72131; 90471; 90715; 99285; 99291; G0390

== ENCOUNTER 2022-06-21 13:14 | Emergency (ER) | payer MEDICARE, BC, SELFPAY ==
[2022-06-21 13:18] VITALS: BP 158/73; PULSE 84; RESP 22; TEMP 36.2; O2SAT 99; BMI 38.8
[2022-06-21 14:09] VITALS: O2SAT 98
[2022-06-21 14:29] LABS: Troponin, Point-of-Care* 0.01 ng/ml (0.01-0.04)
[2022-06-21 14:42] VITALS: BP 125/88; PULSE 65; RESP 22; O2SAT 97
[2022-06-21 14:59] LABS: Albumin* 4.5 g/dL (3.3-5.0); Chloride* 105 mmol/L (96-114)
[2022-06-21 15:00] LABS: Potassium* 4.5 mmol/L (3.6-5.1); Sodium* 140 mmol/L (135-149)
[2022-06-21 15:02] LABS: Creatinine* 1.3 mg/dL (0.5-1.5); Est. Creatinine Clearance* 48.66; Estimated Glomerular Filt Rate 55 ml/min
[2022-06-21 15:03] LABS: Alanine Aminotransferase* 19 U/L (4-50); Alkaline Phosphatase* 95 U/L (40-150); Aspartate Amino Transferase* 22 U/L (12-35); Bilirubin Direct* 0.2 mg/dL (0.0-0.5); Blood Urea Nitrogen* 28 mg/dL (7-30); Calcium* 9.1 mg/dL (8.4-10.6); Carbon Dioxide* 28 mmol/L (20-32); Glucose* 217 mg/dL (60-115); Total Protein* 8.3 g/dL (6.0-8.3)
--- NOTE | 2022-06-21 15:31 | ED.GENADULT ---
HPI - General Adult General Chief complaint: Shortness of Breath/Dyspnea Stated complaint: Difficulty breathing Time Seen by Provider: 06/21/22 13:17 Source: patient Mode of arrival: ambulatory Limitations: no limitations History of Present Illness HPI narrative: Patient is an 82-year-old male here with his for evaluation of dyspnea on exertion. It sounds as if he has been having difficulty with shortness of breath on exertion for quite a while now. At the end of April he was seen up at his cardiology clinic in [place] for a check of his pacemaker. His provides a lot of the history and says that his pacemaker was fine but he had an echo scheduled for June 30, she says because they said that there might be a problem with the bottom chambers of his heart. Review of his cardiology records shows that the echo was ordered because he was complaining of shortness of breath and some swelling in his ankles. He says that last Monday, he got stuck in the snow, and had to walk for about a block in fairly deep snow, it was uneven, and difficult walking. He said he was quite short of breath at the time, did not get any chest tightness or pain. He says by the time he got home he had to sit and catch his breath for quite a while. Today's visit was perhaps most acutely prompted by the fact that he tried to check his blood pressure at home and the cuff kept giving him an error message. He said they were able to check his 's blood pressure but not his. In general he just feels like he has never quite recovered from that episode of walking in the snow. He still has swelling in his legs although it is no different. He has not had any pain in his legs, denies fever cough. Continues to deny chest pain. Does have diabetes, he is on insulin the metformin. Does not take a diuretic. Does not smoke, no significant alcohol use. Related Data Home Medications Medication Instructions Recorded Confirmed atorvastatin 80 mg tablet mg PO 01/21/22 glimepiride 4 mg tablet mg 01/21/22 insulin syringe-needle U-100 /2 01/21/22 01/21/22 mL 31 gauge x 15/64 (BD Veo Insulin Syringe Ultra-Fine) isosorbide mononitrate 30 mg 30 mg PO 01/21/22 tablet,extended release 24 hr metformin 1,000 mg tablet mg 01/21/22 metoprolol tartrate 25 mg tablet mg 01/21/22 amlodipine 5 mg tablet 5 mg PO DAILY 06/21/22 06/21/22 Previous Rx's Medication Instructions Recorded furosemide 20 mg tablet (Lasix) 20 mg PO DAILY #10 tabs 06/21/22 Allergies Allergy/AdvReac Type Severity Reaction Status Date / Time No Known Drug Allergies Allergy Verified 01/21/22 14:43 Review of Systems Status of ROS: Reports: 10 or more systems reviewed and unremarkable except as noted in History and below PFSH [facility] Social History Smoking Status: Former smoker Do you use any of these nicotine containing products: None Second hand tobacco smoke exposure: No How often do you have a drink containing alcohol: never How often do you have six or more drinks on one occasion: Never AUDIT-C Alcohol total score: 0 Non-prescribed substance use: denies use Exam Narrative: Exam Narrative: Vital signs as noted above. In general, an alert, nontoxic elderly male. Hard of hearing, breathing easily. Head: Normocephalic, atraumatic. Eyes: Pupils are equal reactive. Extraocular movements are full. Conjunctivae are normal. ENT: Mucous membranes are moist. Neck: Supple without lymphadenopathy. Heart: Regular with frequent ectopy. No obvious murmur, heart sounds are distant. Lungs: Clear bilaterally. No increased work of breathing, crackles or wheezes. Abdomen: Protuberant and soft and nontender. No organomegaly. Extremities: Well perfused, pulses not palpable in either foot. Edema noted in both lower extremities, chronic per patient. Neurologic: Patient is alert and oriented to person and place. Speech is fluent. Face is symmetric. Moves all extremities equally. Affect: Normal. Skin: Warm and dry. Well perfused. Const: Vital Signs, click to edit/add: Vital Signs - 24 hr 06/21/22 13:18 06/21/22 14:09 06/21/22 14:42 Temperature 97.2 F L Pulse Rate [Right Pulse Oximeter] 84 65 Respiratory Rate 22 22 Blood Pressure [Ri ght Upper Arm] 158/73 H 125/88 Pulse Oximetry 99 98 97 Oxygen Delivery Me thod Room Air Room Air 06/21/22 15:42 Temperature Pulse Rate [Right Pulse Oximeter] 66 Respiratory Rate 18 Blood Pressure [Ri ght Upper Arm] 124/71 Pulse Oximetry 99 Oxygen Delivery Me thod Room Air Documenting provider has reviewed patient's vital signs: yes Course Course Hospital Course: On arrival, patient was placed on monitor and oximetry. He had an EKG which shows a dual paced rhythm, frequent PVCs.. Initial troponin was 0. Metabolic panel shows normal electrolytes, blood sugar today is 217. LFTs are normal. CRP is 1. BNP is elevated at 1120. The last BNP I have for comparison was back in 2012 at which time as 125, but a 10-year-old comparison is probably worthless. I am awaiting a D-dimer. I do not have his CBC back yet either. Diagnostic considerations include congestive heart failure, PE, acute coronary syndrome versus angina, anemia, pneumonia, pneumothorax, pleural effusion, among others. With a negative troponin, I do not think this likely represents acute coronary syndrome since he has been having difficulty since this episode walking in the snow which was almost 5 days ago. D-dimer was negative age at 0.75. CBC shows a normal white blood cell count at 7.8 and a hemoglobin of 13.2. He also had a chest x-ray which is read by Radiology as showing mild pulmonary edema. I was able to review some previous records, he had an echo last summer and had a normal ejection fraction at that time but had some diastolic dysfunction. His BNP is elevated, has some mild pulmonary edema on x-ray, and overall I think he probably is having some mild congestive heart failure contributing to his symptoms. He has an echo scheduled on the , his O2 saturations here are normal, and it seems that this issue with his blood pressure cuff contributed significantly to him deciding to come in today rather than worsening or severe symptoms. I given 20 mg of IV Lasix here, and I am going to put him on a small dose at home. I have asked him to follow up with his primary care doctor in the next week or so for recheck, I have explained that it is important to recheck and make sure that he is tolerating this medicine okay in terms of electrolytes, renal function etc.. In the meantime, he will have his echo per Cardiology and further management of any congestive heart failure her their recommendations. Also discussed that if at any time he feels that things are significantly worsening, he is not able to manage at home or has new symptoms such as chest pain or fever, he should return to the emergency. Vital Signs Vital signs: Initial Vital Signs Temperature 97.2 F L 06/21/22 13:18 Temperature Source Temporal Artery Scan 06/21/22 13:18 Pulse Rate 84 06/21/22 13:18 Respiratory Rate 22 06/21/22 13:18 Blood Pressure 158/73 H 06/21/22 13:18 Blood Pressure Mean 101 06/21/22 13:18 Blood Pressure Position Sitting 06/21/22 13:18 Pulse Oximetry 99 06/21/22 13:18 Oxygen Delivery Method 06/21/22 13:18 Vital Signs Temperature 97.2 F L 06/21/22 13:18 Pulse Rate 84 06/21/22 13:18 Respiratory Rate 22 06/21/22 13:18 Blood Pressure 158/73 H 06/21/22 13:18 Pulse Oximetry 99 06/21/22 13:18 Oxygen Delivery Method 06/21/22 13:18 Temperature 97.2 F L 06/21/22 13:18 Pulse Rate 66 06/21/22 15:42 Respiratory Rate 18 06/21/22 15:42 Blood Pressure 124/71 06/21/22 15:42 Pulse Oximetry 99 06/21/22 15:42 Oxygen Delivery Method 06/21/22 15:42 Medical Decision Making Lab Data Labs: Lab Results 06/21/22 06/21/22 06/21/22 Range/Units 14:10 14:10 14:10 WBC 7.78 (4.50-11.00) K/uL RBC 4.55 (4.30-5.90) m/uL Hgb 13.2 L (13.5-17.5) gm/dL Hct 42.5 (37.0-53.0) % MCV 93 (80-100) fL MCH 29 (26-34) pg MCHC 31 L (32-36) gm/dL RDW Coeff of Sandra 14.4 (11.5-15.5) % Plt Count 163 (140-440) K/uL Neut % (Auto) 69.6 (42.0-72.0) % Lymph % (Auto) 15.4 L (20-44) % [place] % (Auto) 10.0 (0.0-11.0) % Eos % (Auto) 4.1 (0.0-7.0) % Baso % (Auto) 0.6 (0.0-3.0) % Neut # (Auto) 5.41 (1.7-7.0) K/uL Lymph # (Auto) 1.20 (0.90-2.90) K/uL [place] # (Auto) 0.80 (0.00-0.90) K/UL Eos # (Auto) 0.32 (0.00-0.50) K/uL Baso # (Auto) 0.05 (0.00-0.30) K/uL D-Dimer Quant (PE/DVT) 0.75 H (0.00-0.50) ug/ml Sodium 140 (135-149) mmol/L Potassium 4.5 (3.6-5.1) mmol/L Chloride 105 (96-114) mmol/L Carbon Dioxide 28 (20-32) mmol/L BUN 28 (7-30) mg/dL Creatinine 1.3 (0.5-1.5) mg/dL Estimated Creat Clear 48.66 Estimated GFR 55 ml/min Glucose 217 H (60-115) mg/dL Calcium 9.1 (8.4-10.6) mg/dL Total Bilirubin 1.0 (0.1-1.5) mg/dL Direct Bilirubin 0.2 (0.0-0.5) mg/dL AST 22 (12-35) U/L ALT 19 (4-50) U/L Alkaline Phosphatase 95 (40-150) U/L C-Reactive Protein 1.0 (0.5-1.0) mg/dL NT-Pro-B Natriuret Pep 1120 pg/mL Total Protein 8.3 (6.0-8.3) g/dL Albumin 4.5 (3.3-5.0) g/dL TSH (0.270-4.200) uIU/mL SARS-CoV-2 (PCR) (Negative) POC Troponin I (0.01-0.04) ng/ml 06/21/22 06/21/22 06/21/22 Range/Units 14:10 14:10 14:35 WBC (4.50-11.00) K/uL RBC (4.30-5.90) m/uL Hgb (13.5-17.5) gm/dL Hct (37.0-53.0) % MCV (80-100) fL MCH (26-34) pg MCHC (32-36) gm/dL RDW Coeff of Sandra (11.5-15.5) % Plt Count (140-440) K/uL Neut % (Auto) (42.0-72.0) % Lymph % (Auto) (20-44) % [place] % (Auto) (0.0-11.0) % Eos % (Auto) (0.0-7.0) % Baso % (Auto) (0.0-3.0) % Neut # (Auto) (1.7-7.0) K/uL Lymph # (Auto) (0.90-2.90) K/uL [place] # (Auto) (0.00-0.90) K/UL Eos # (Auto) (0.00-0.50) K/uL Baso # (Auto) (0.00-0.30) K/uL D-Dimer Quant (PE/DVT) (0.00-0.50) ug/ml Sodium (135-149) mmol/L Potassium (3.6-5.1) mmol/L Chloride (96-114) mmol/L Carbon Dioxide (20-32) mmol/L BUN (7-30) mg/dL Creatinine (0.5-1.5) mg/dL Estimated Creat Clear Estimated GFR ml/min Glucose (60-115) mg/dL Calcium (8.4-10.6) mg/dL Total Bilirubin (0.1-1.5) mg/dL Direct Bilirubin (0.0-0.5) mg/dL AST (12-35) U/L ALT (4-50) U/L Alkaline Phosphatase (40-150) U/L C-Reactive Protein (0.5-1.0) mg/dL NT-Pro-B Natriuret Pep pg/mL Total Protein (6.0-8.3) g/dL Albumin (3.3-5.0) g/dL TSH 2.780 (0.270-4.200) uIU/mL SARS-CoV-2 (PCR) Negative SARS-CoV-2 (Negative) POC Troponin I 0.01 (0.01-0.04) ng/ml Discharge Plan Discharge Clinical Impression: Congestive heart failure Patient Disposition: Home, Self-Care Condition: Stable Instructions: Heart Failure (ED) Additional Instructions: Lasix as prescribed. Follow-up with primary care in the coming week for recheck. Echo and blood work as planned per your wellness coach. Return at any time for significant worsening, inability to carry out activities of daily living at home, new symptoms such as chest pain. Prescriptions: New furosemide [Lasix] 20 mg tablet 20 mg PO DAILY Qty: 10 2RF No Action atorvastatin 80 mg tablet PO Label Comments: TAKE ? TABLET BY MOUTH ONCE DAILY isosorbide mononitrate 30 mg tablet extended release 24 hr 30 mg PO Label Comments: TAKE HALF TABLET BY MOUTH DAILY metformin 1,000 mg tablet Label Comments: TAKE 1 TABLET BY MOUTH TWICE DAILY with meals glimepiride 4 mg tablet Label Comments: TAKE ONE TABLET BY MOUTH ONE TIME DAILY WITH FOOD metoprolol tartrate 25 mg tablet Label Comments: TAKE ONE TABLET BY MOUTH TWICE DAILY FOR BLOOD PRESSURE AND HEART (DME) insulin syringe-needle U-100 [BD Veo Insulin Syringe UF] 1/2 mL 31 gauge x 15/64 syringe MISCELLANEOUS Label Comments: use to inject insulin injections twice daily. amlodipine 5 mg tablet 5 mg PO DAILY Follow Up/Referrals: Trace Quijano MD [Primary Care Provider] - Stand Alone Forms: Top Hat Info Instructions
[2022-06-21 15:32] LABS: SARS PCR* Negative SARS-CoV-2 (Negative)
[2022-06-21 15:35] LABS: NT Pro B Type NatriureticPept* 1120 pg/mL
[2022-06-21 15:36] LABS: D Dimer Quantitative* 0.75 ug/ml (0.00-0.50)
[2022-06-21 15:42] VITALS: BP 124/71; PULSE 66; RESP 18; O2SAT 99
--- NOTE | 2022-06-21 15:42 | CRLHL7_ITS ---
For Patients: As a result of the Century Cures Act, medical imaging exams and procedure reports are released immediately into your electronic medical record. You may view this report before your referring provider. If you have questions, please contact your health care provider. INDICATION: Dyspnea on exertion. TECHNIQUE: Chest 2 views. COMPARISON: None. FINDINGS: Cardiovascular and mediastinum: Cardiomediastinal silhouette is moderately enlarged left upper chest wall pacer with leads extending to the right atrium and ventricle. Multiple clips in the mediastinum. Lungs and pleural spaces: Mild bilateral perihilar interstitial opacities. No sign of pleural effusion. No pneumothorax. Bones and soft tissues: Multilevel degenerative changes in thoracic spine.. Median sternotomy wires are noted. IMPRESSION: Cardiomegaly with mild pulmonary edema.. Dictated by Mirna Wallace MD @ 06/21/2022 5:02:32 PM (Electronically Signed)
[2022-06-21 15:50] LABS: Basophils Absolute Auto 0.05 K/uL (0.00-0.30); Basophils Percent Auto 0.6 % (0.0-3.0); Eosinophils Absolute Auto 0.32 K/uL (0.00-0.50); Eosinophils Percent Auto 4.1 % (0.0-7.0); Hematocrit 42.5 % (37.0-53.0); Hemoglobin* 13.2 gm/dL (13.5-17.5); Immature Granulocytes Abs Auto 0.02 K/uL (0.00-0.30); Immature Granulocytes Pct Auto 0.3 %; Lymphocytes Percent Auto 15.4 % (20-44); Mean Corpuscular HGB Conc 31 gm/dL (32-36); Mean Corpuscular Hemoglobin 29 pg (26-34); Mean Corpuscular Volume 93 fL (80-100); Neutrophils Absolute Auto 5.41 K/uL (1.7-7.0); Neutrophils Percent Auto 69.6 % (42.0-72.0); Platelet Count* 163 K/uL (140-440); RDW Coefficient of Variation % 14.4 % (11.5-15.5); Red Blood Count 4.55 m/uL (4.30-5.90); White Blood Count* 7.78 K/uL (4.50-11.00)
[2022-06-21 15:52] LABS: Slide Review Reflex No
[2022-06-21] MEDS: FUROSEMIDE 10 MG/ML inj 20 MG IVP (17:27)
== END 2022-06-21 17:28 | disposition home or self-care (01) ==
PROVIDERS: Emergency Provider Emergency Medicine; PCP Family Medicine
DX: I50.9 Heart failure, unspecified (principal)
CPT/HCPCS: 36415; 71046; 80048; 80076; 83880; 84443; 84484; 85025; 85379; 86140; 87635; 93005; 94761; 96374; 99284; J1940

== ENCOUNTER 2022-07-06 12:48 | Observation (INO) | payer MEDICARE, BC, SELFPAY ==
[2022-07-06 12:54] VITALS: BP 148/80; PULSE 61; RESP 23; TEMP 36.9; O2SAT 97; BMI 39.4
[2022-07-06 13:30] VITALS: O2SAT 100
--- NOTE | 2022-07-06 13:30 | CRLHL7_ITS ---
For Patients: As a result of the Century Cures Act, medical imaging exams and procedure reports are released immediately into your electronic medical record. You may view this report before your referring provider. If you have questions, please contact your health care provider. INDICATION: Shortness of breath TECHNIQUE: Chest 1 view. COMPARISON: 05/24/2022 FINDINGS: Cardiovascular and mediastinum: Her megaly. Sternotomy wires and left-sided transvenous pacer device. Mediastinum is within normal limits. Lungs and pleural space: Lungs are clear. No sign of infiltrate or mass. No sign of pleural effusion. No pneumothorax. Bones and soft tissues: No significant findings. IMPRESSION: No acute findings. Cardiomegaly Dictated by Larry Vaz MD @ 07/06/2022 2:46:26 PM Dictated by: Larry Vaz MD @ 07/06/2022 14:46:32 (Electronically Signed)
--- NOTE | 2022-07-06 13:32 | ED.GENADULT ---
HPI - General Adult General Time Seen by Provider: 13:33 Date Seen: 07/06/22 Chief complaint: Arrhythmia/Palpitations Stated complaint: possible A FIB Time Seen by Provider: 07/06/22 12:51 Source: patient Mode of arrival: ambulatory Limitations: physical limitation History of Present Illness HPI narrative: 82-year-old white male with history of weight gain over the last several months of about 8 lb. He was seen by Dr. Tori raya within the last few weeks here was discharged with some diuretics but he did not take these as he was concerned might harm his kidneys. He continues to have shortness of breath over about the last 3-4 weeks he attributes initially it to getting a 4 [place] stuck and having to walk back to his house.. He also has a pacemaker placed. He has had cardiac stents and 3 vessel bypass surgery in the past. Again he has no chest pain, he does feel generally weak somewhat short of breath when he lies down occasionally, he has noticed more leg swelling over the last few couple of weeks as well. He had an echocardiogram done on 06/30/2022 that showed moderately decreased left ventricular function ejection fraction about 35-45% cardiac valves appear largely unremarkable. The patient reports that he gets short of breath even walking 10 ft. He has had AFib in the past as well Related Data Home Medications Medication Instructions Recorded Confirmed glimepiride 4 mg tablet 4 mg PO DAILY 01/21/22 07/06/22 insulin syringe-needle U-100 /01/21/22 01/21/22 mL 31 gauge x 15/64 (BD Veo Insulin Syringe Ultra-Fine) isosorbide mononitrate 30 mg 30 mg PO DAILY 01/21/22 07/06/22 tablet,extended release 24 hr metformin 1,000 mg tablet 1,000 mg PO BIDWMEAL 01/21/22 07/06/22 amlodipine 5 mg tablet 5 mg PO DAILY 06/21/22 07/06/22 atorvastatin 40 mg tablet 40 mg PO HS cholesterol 07/06/22 07/06/22 insulin NPH-regular 70-30 U-100 50 - 51 unit subcut BID 07/06/22 07/06/22 insulin 100 unit/mL subcutaneous pen (Humulin 70/30 U-100 Romero) metoprolol tartrate 50 mg tablet 50 mg PO BID 07/06/22 07/06/22 Previous Rx's Medication Instructions Recorded furosemide 40 mg tablet 40 mg PO DAILY@0800 #30 tabs 07/07/22 magnesium oxide 400 mg (241.3 mg 400 mg PO BIDWM #60 tabs 07/07/22 magnesium) tablet Allergies Allergy/AdvReac Type Severity Reaction Status Date / Time No Known Drug Allergies Allergy Verified 07/06/22 13:02 Review of Systems Status of ROS: Reports: 10 or more systems reviewed and unremarkable except as noted in History and below PFSH [facility] Medical History (Updated 07/15/22 @ 00:01 by ) Atrial fibrillation ?I48.91 - Unspecified atrial fibrillation (ICD-10) CAD (coronary artery disease) ?I25.10 - Atherosclerotic heart disease of cahto coronary artery without angina pectoris (ICD-10) CKD (chronic kidney disease) ?N18.9 - Chronic kidney disease, unspecified (ICD-10) Insulin dependent diabetes mellitus Macular degeneration ?H35.30 - Unspecified macular degeneration (ICD-10) GERMÁN on CPAP ?G47.33 - Obstructive sleep apnea (adult) (pediatric) (ICD-10) ?Z99.89 - Dependence on other enabling machines and devices (ICD-10) Pacemaker ?Z95.0 - Presence of cardiac pacemaker (ICD-10) Prostate cancer ?C61 - Malignant neoplasm of prostate (ICD-10) Surgical History (Updated 07/06/22 @ 16:08 by Anamika Washburn MD) H/O cataract extraction ?Z98.49 - Cataract extraction status, unspecified eye (ICD-10) H/O radical prostatectomy ?Z90.79 - Acquired absence of other genital organ(s) (ICD-10) S/P CABG x 4 ?Z95.1 - Presence of aortocoronary bypass graft (ICD-10) S/P placement of cardiac pacemaker ?Z95.0 - Presence of cardiac pacemaker (ICD-10) Social History (Updated 07/06/22 @ 15:54 by Anamika Washburn MD) Narrative: [place]. 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 Two adult daughters in the area. Quit smoking in the , no alcohol use. Highest level of school completed/degree received: high school graduate Smoking Status: Former smoker Do you use any of these nicotine containing products: None Second hand tobacco smoke exposure: No How often do you have a drink containing alcohol: never How often do you have six or more drinks on one occasion: Never AUDIT-C Alcohol total score: 0 Non-prescribed substance use: denies use Caffeine: Yes service: No Exam Narrative: Exam Narrative: Objective: Patient's vital signs are largely unremarkable O2 sat is excellent Patient is able to talk in full sentences, no cyanosis noted HEENT otherwise unremarkable Neck is supple Chest is diminished air exchange bilaterally rales at the bases Heart rate and rhythm regular 2/6 systolic murmur occasional ectopic beat noted Abdomen obese benign nontender Extremities showed 1+ to 2+ edema of the pretibial and ankle areas Neuro is nonfocal in upper lower extremities Const: Vital Signs, click to edit/add: Vital Signs - 24 hr 07/06/22 12:54 Temperature 98.4 F Pulse Rate [Pulse Oximeter] 61 Respiratory Rate 23 Blood Pressure [Le ft Upper Arm] 148/80 H Pulse Oximetry 97 Oxygen Delivery Me thod Room Air Course Course Hospital Course: 82-year-old male admitted to the hospital with heart failure exacerbation causing dyspnea weight gain and edema. Patient was seen a couple weeks ago in the emergency department and prescribed furosemide but he did not pick it up because of fear of harming his kidneys. Reviewed this today and he is in agreement with continuing furosemide as an outpatient. In the hospital he was given IV furosemide 80 mg and diuresed almost 10 lb overnight. Today he reports his breathing is much better. Vital Signs Vital signs: Initial Vital Signs Temperature 98.4 F 07/06/22 12:54 Temperature Source Temporal Artery Scan 07/06/22 12:54 Pulse Rate 61 07/06/22 12:54 Pulse Rhythm Irregular 07/06/22 12:54 Pulse Strength 3+ Normal 07/06/22 12:54 Respiratory Rate 23 07/06/22 12:54 Blood Pressure 148/80 H 07/06/22 12:54 Blood Pressure Mean 102 07/06/22 12:54 Blood Pressure Position Sitting 07/06/22 12:54 Pulse Oximetry 97 07/06/22 12:54 Oxygen Delivery Method Room Air 07/06/22 12:54 Vital Signs Temperature 98.4 F 07/06/22 12:54 Pulse Rate 61 07/06/22 12:54 Respiratory Rate 23 07/06/22 12:54 Blood Pressure 148/80 H 07/06/22 12:54 Pulse Oximetry 97 07/06/22 12:54 Oxygen Delivery Method Room Air 07/06/22 12:54 Temperature 97.5 F L 07/07/22 10:09 Pulse Rate 76 07/07/22 10:09 Respiratory Rate 20 07/07/22 10:09 Blood Pressure 149/79 H 07/07/22 10:09 Pulse Oximetry 95 07/07/22 08:21 Oxygen Delivery Method Room Air 07/07/22 08:21 Medical Decision Making MDM Narrative Medical decision making narrative: [age] male with history of coronary artery disease stents and three-vessel coronary bypass, with likely ischemic cardiomyopathy, with evidence of reduced ejection fraction of 35-40% with increased weight retention, suggestive of congestive heart failure. Patient this point will get an EKG, that shows AV dual paced rhythm premature ventricular contractions. Will get a chest x-ray, laboratory studies including proBNP, troponin, lab studies to include electrolytes and Chem profile. Will give him IV Lasix 80 mg. Given the patient's reduced ejection fraction and his swelling in his legs and his weight gain, and his age, and prior cardiac history I think it might be reasonable to admit him for diuresis and electrolyte observation as well as telemetry. Will discuss with hospitalist after labs return. Addendum: Patient's chest x-ray shows a very large heart cardiomegaly, I think there is some left-sided infiltrate as well. His white count is normal 7000 170 hemoglobin is 12.4 ER profile is largely unremarkable other than glucose is 205 nonfasting troponin is negative creatinine is 1.4. And the patient would benefit from diuresis given his lower ejection fraction his heart failure symptoms and his relative shortness of breath and history of cardiac issues will discuss with hospitalist. Lab Data Labs: Lab Results 07/06/22 Range/Units 13:45 WBC 7.17 (4.50-11.00) K/uL RBC 4.29 L (4.30-5.90) m/uL Hgb 12.4 L (13.5-17.5) gm/dL Hct 40.0 (37.0-53.0) % MCV 93 (80-100) fL MCH 29 (26-34) pg MCHC 31 L (32-36) gm/dL RDW Coeff of Sandra 14.8 (11.5-15.5) % Plt Count 147 (140-440) K/uL Neut % (Auto) 71.2 (42.0-72.0) % Lymph % (Auto) 15.1 L (20-44) % [place] % (Auto) 10.0 (0.0-11.0) % Eos % (Auto) 3.3 (0.0-7.0) % Baso % (Auto) 0.3 (0.0-3.0) % Neut # (Auto) 5.10 (1.7-7.0) K/uL Lymph # (Auto) 1.10 (0.90-2.90) K/uL [place] # (Auto) 0.70 (0.00-0.90) K/UL Eos # (Auto) 0.24 (0.00-0.50) K/uL Baso # (Auto) 0.02 (0.00-0.30) K/uL INR 1.19 H (0.91-1.10) APTT 34 H (23-33) Seconds Sodium 140 (135-149) mmol/L Potassium 5.1 (3.6-5.1) mmol/L Chloride 106 (96-114) mmol/L Carbon Dioxide 30 (20-32) mmol/L BUN 24 (7-30) mg/dL Creatinine 1.4 (0.5-1.5) mg/dL Estimated Creat Clear 45.18 Estimated GFR 50 ml/min Glucose 205 H (60-115) mg/dL Calcium 8.8 (8.4-10.6) mg/dL Total Bilirubin 0.9 (0.1-1.5) mg/dL Direct Bilirubin 0.3 (0.0-0.5) mg/dL AST 23 (12-35) U/L ALT 18 (4-50) U/L Alkaline Phosphatase 84 (40-150) U/L Troponin I < 0.01 L (0.01-0.04) ng/mL C-Reactive Protein 0.9 (0.5-1.0) mg/dL NT-Pro-B Natriuret Pep 841 pg/mL Total Protein 7.5 (6.0-8.3) g/dL Albumin 4.2 (3.3-5.0) g/dL SARS-CoV-2 (PCR) Negative SARS-CoV-2 (Negative) Influenza Type A (PCR) Negative PCR FLU A (Negative) Influenza Type B (PCR) Negative PCR FLU B (Negative) RSV (PCR) Negative PCR RSV (Negative) Discharge Plan Discharge Clinical Impression: Congestive heart failure Patient Disposition: Admitted As Inpatient Condition: Improved Activity Level: Activity as Tolerated Discharge Diet: 2 gm Sodium
[2022-07-06] MEDS: FUROSEMIDE 10 MG/ML inj 80 MG IV (13:50)
[2022-07-06 13:52] LABS: Basophils Absolute Auto 0.02 K/uL (0.00-0.30); Basophils Percent Auto 0.3 % (0.0-3.0); Eosinophils Absolute Auto 0.24 K/uL (0.00-0.50); Eosinophils Percent Auto 3.3 % (0.0-7.0); Hemoglobin* 12.4 gm/dL (13.5-17.5); Immature Granulocytes Abs Auto 0.01 K/uL (0.00-0.30); Immature Granulocytes Pct Auto 0.1 %; Lymphocytes Percent Auto 15.1 % (20-44); Mean Corpuscular HGB Conc 31 gm/dL (32-36); Mean Corpuscular Hemoglobin 29 pg (26-34); Mean Corpuscular Volume 93 fL (80-100); Neutrophils Percent Auto 71.2 % (42.0-72.0); Platelet Count* 147 K/uL (140-440); RDW Coefficient of Variation % 14.8 % (11.5-15.5); Red Blood Count 4.29 m/uL (4.30-5.90); White Blood Count* 7.17 K/uL (4.50-11.00)
[2022-07-06 14:02] LABS: Slide Review Reflex No
[2022-07-06 14:04] LABS: Chloride* 106 mmol/L (96-114)
[2022-07-06 14:05] LABS: Albumin* 4.2 g/dL (3.3-5.0); Sodium* 140 mmol/L (135-149)
[2022-07-06 14:06] LABS: Potassium* 5.1 mmol/L (3.6-5.1)
[2022-07-06 14:07] LABS: Creatinine* 1.4 mg/dL (0.5-1.5); Est. Creatinine Clearance* 45.18; Estimated Glomerular Filt Rate 50 ml/min
[2022-07-06 14:08] LABS: Alkaline Phosphatase* 84 U/L (40-150); Aspartate Amino Transferase* 23 U/L (12-35); Bilirubin Direct* 0.3 mg/dL (0.0-0.5); Bilirubin Total* 0.9 mg/dL (0.1-1.5); Carbon Dioxide* 30 mmol/L (20-32); Total Protein* 7.5 g/dL (6.0-8.3)
[2022-07-06 14:09] LABS: Alanine Aminotransferase* 18 U/L (4-50); Blood Urea Nitrogen* 24 mg/dL (7-30); Calcium* 8.8 mg/dL (8.4-10.6); Glucose* 205 mg/dL (60-115)
[2022-07-06 14:11] LABS: C Reactive Protein* 0.9 mg/dL (0.5-1.0)
[2022-07-06 14:14] LABS: INR 1.19 (0.91-1.10); Prothrombin Time 15.9 Seconds
[2022-07-06 14:15] LABS: Partial Thromboplastin Time* 34 Seconds (23-33)
[2022-07-06 14:21] LABS: NT Pro B Type NatriureticPept* 841 pg/mL; Troponin I* < 0.01 ng/mL (0.01-0.04)
[2022-07-06 14:30] LABS: PCR FLU A Negative PCR FLU A (Negative); PCR FLU B Negative PCR FLU B (Negative); PCR RSV Negative PCR RSV (Negative); SARS PCR* Negative SARS-CoV-2 (Negative)
[2022-07-06 15:23] VITALS: PULSE 96
--- NOTE | 2022-07-06 15:32 | PM.IMHP1 ---
Hospitalist- H&P: HPI History of Present Illness Date Seen: 07/06/22 Chief complaint: possible A FIB Narrative: Ramses Teran is a 82 year old male presented to the emergency room with his for persistent dyspnea, worse on exertion. Patient has a known history of coronary artery disease and CHF; follows with Dr. Birch of Cardiology. TTE performed 6 days ago exhibited an EF of 35-40% with high PVC burden. Given these findings, Dr. Birch recommend a Holter monitor; which patient completed and returned back to the clinic prior to coming to the ER today. He presented to the ER at the behest of the [facility]'s nursing staff when he returned his Holter monitor, given his dyspnea and known CHF. He also notes worsening of his chronic LE edema, intermittent orthopnea, and weight gain (approximately 8 pounds). Ramses is not typically on diuretics; was seen in our ER on 06/21 for similar symptoms, given a prescription for Lasix, but never took it (was worried about his renal function). ER course and findings: - paced rhythm on EKG, + PVCs - BNP 841 (was 191 on 06/30/22) - cardiomegaly on CXR - given 80mg of IV Lasix x1 Given persistent JOSEPH and known symptomatic CHF, patient is admitted to the hospital. Past medical history updated below. Patient's PCP is Dr. Quijano at the [facility]. Review of Systems Status of ROS: Reports: 10 or more systems reviewed and unremarkable except as noted in History and below Narrative: - chronic constipation PFSH PFSH Medical History (Updated 07/06/22 @ 16:42 by Anamika Washburn MD) Atrial fibrillation CAD (coronary artery disease) CKD (chronic kidney disease) Insulin dependent diabetes mellitus Macular degeneration GERMÁN on CPAP Pacemaker Prostate cancer Surgical History (Updated 07/06/22 @ 16:08 by Anamika Washburn MD) H/O cataract extraction H/O radical prostatectomy S/P CABG x 4 S/P placement of cardiac pacemaker Social History (Updated 07/06/22 @ 15:54 by Anamika Washburn MD) Narrative: Lives with [place] farm near [place]. 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 Two adult daughters in the area. Quit smoking in the , no alcohol use. Highest level of school completed/degree received: high school graduate Smoking Status: Former smoker Do you use any of these nicotine containing products: None Second hand tobacco smoke exposure: No How often do you have a drink containing alcohol: never How often do you have six or more drinks on one occasion: Never AUDIT-C Alcohol total score: 0 Non-prescribed substance use: denies use Caffeine: Yes service: No Meds Home Medications and Allergies Home Medications Medication Instructions Recorded Confirmed Type glimepiride 4 mg tablet 4 mg PO DAILY 01/21/22 07/06/22 History insulin syringe-needle U-100 2 01/21/22 01/21/22 History mL 31 gauge x 15/64 (BD Veo Insulin Syringe Ultra-Fine) isosorbide mononitrate 30 mg 30 mg PO DAILY 01/21/22 07/06/22 History tablet,extended release 24 hr metformin 1,000 mg tablet 1,000 mg PO BIDWMEAL 01/21/22 07/06/22 History amlodipine 5 mg tablet 5 mg PO DAILY 06/21/22 07/06/22 History atorvastatin 40 mg tablet 40 mg PO HS cholesterol 07/06/22 07/06/22 History insulin NPH-regular 70-30 U-100 50 - 51 unit subcut BID 07/06/22 07/06/22 History insulin 100 unit/mL subcutaneous pen (Humulin 70/30 U-100 KwikPen) metoprolol tartrate 50 mg tablet 50 mg PO BID 07/06/22 07/06/22 History Home Medication Comments: Also on 70/30 insulin, and takes 50-51 U BID, ASA 325mg/day, and CPAP nightly for GERMÁN Allergies Allergy/AdvReac Type Severity Reaction Status Date / Time No Known Drug Allergies Allergy Verified 07/06/22 13:02 Exam Narrative: Exam Narrative: GEN: Alert and oriented, [place]. Answers questions appropriately HEENT: Normal external ears, EOMIs bilaterally, no scleral icterus CV: Irregular rhythm, rate in the 60s R: No tachypnea, fine bibasilar rales, no wheezing Ext: 2-3+ edema BLE Skin: No concerning skin lesions or rashes on exposed skin Neuro: No focal deficits, no resting tremor, ambulates with a cane Psych: Appropriate Const: Vital Signs, click to edit/add: Vital Signs - 24 hr 07/06/22 12:54 07/06/22 13:30 Temperature 98.4 F Pulse Rate [Pulse Oximeter] 61 Respiratory Rate 23 Blood Pressure [Le ft Upper Arm] 148/80 H Pulse Oximetry 97 100 Oxygen Delivery Me thod Room Air Hospitalist - H&P: Result Labs Labs: Short CBC 07/06/22 Range/Units 13:45 WBC 7.17 (4.50-11.00) K/uL Hgb 12.4 L (13.5-17.5) gm/dL Hct 40.0 (37.0-53.0) % Plt Count 147 (140-440) K/uL BMP 07/06/22 13:45 Sodium 140 Potassium 5.1 Chloride 106 Carbon Dioxide 30 BUN 24 Creatinine 1.4 Glucose 205 H Calcium 8.8 Cardiac Enzymes 07/06/22 Range/Units 13:45 Troponin I < 0.01 L (0.01-0.04) ng/mL Liver Function 07/06/22 Range/Units 13:45 Total Bilirubin 0.9 (0.1-1.5) mg/dL Direct Bilirubin 0.3 (0.0-0.5) mg/dL AST 23 (12-35) U/L ALT 18 (4-50) U/L Alkaline Phosphatase 84 (40-150) U/L Albumin 4.2 (3.3-5.0) g/dL Assessment and Plan Assessment and plan (1) Congestive heart failure: Problem comment: - given Lasix in ED, will continue this daily - Nutrition referral Status: Acute (2) CAD (coronary artery disease): Problem comment: - 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 in 1995; status post 3V CABG 2006; percutaneous coronary angiography with angioplasty x1 in 2010 (could not deploy a stent) Status: Acute (3) Insulin dependent diabetes mellitus: Problem comment: - on Metformin, Glimepiride, and BID 70/30 - continue home medications + accuchecks and SSI Status: Acute (4) CKD (chronic kidney disease): Problem comment: - baseline creatinine 1.5-1.7 Status: Acute (5) GERMÁN on CPAP: Problem comment: - continue CPAP at night Status: Acute (6) Atrial fibrillation: Problem comment: - unclear if true history of this vs junctional rhythm (per chart review), not anticoagulated, follows with Cardiology as an outpatient Status: Acute Plan - per above - continue ASA for ppx, add Teds + ambulation - will d/c home with when medically stable with close PCP and Cardiology f/u, possibly as soon as tomorrow
[2022-07-06 16:02] VITALS: BP 122/105; PULSE 67; RESP 20; TEMP 36.2; O2SAT 96; O2SAT 99; BMI 39.7
[2022-07-06] MEDS: INSULIN PROT/ASP (NOVOLOG 70/30) 100 UNIT/ML 50 UNIT SUBCUT (18:05)
[2022-07-06] MEDS: METFORMIN 1,000 MG TABLET 1000 MG PO (18:06)
[2022-07-06 19:00] VITALS: BP 145/82; PULSE 64; RESP 20; TEMP 36.4; O2SAT 93
[2022-07-06] MEDS: METOPROLOL TARTRATE 50 MG TABLET PO (19:12)
[2022-07-06] MEDS: ATORVASTATIN CALCIUM 40 MG TABLET PO (19:12)
[2022-07-06] MEDS: MAGNESIUM OXIDE 400 MG TABLET PO (19:12)
[2022-07-06] MEDS: AMLODIPINE 5 MG TABLET PO (19:12)
[2022-07-06] MEDS: SODIUM CHLORIDE 0.9 % (FLUSH) 10 ML SYRINGE 5 ML IVF (21:34)
[2022-07-06 23:00] VITALS: BP 139/98; PULSE 59; PULSE 60; RESP 20; RESP 22; TEMP 36.5; O2SAT 97
[2022-07-07 03:00] VITALS: BP 124/77; PULSE 77; RESP 20; TEMP 36.6; O2SAT 97
--- NOTE | 2022-07-07 07:11 | PC.NURSE ---
Pt is alert and oriented x3. Afebrile. Pt denies pain, chest pain, and N/V. Pt reports SOB with exertion but says ?I feel much better today than I did yesterday.? Around 0000 at night pt reported feeling of low blood sugar, blood sugar taken, blood sugar was 59, pt was given toast, and two glass of orange juice, blood sugar checked again in 15 mins blood sugar was 70, blood sugar was taken again with vitals around 0300 pt blood sugar was 157. Pt has edema in both legs, LETICIA socks were applied overnight. Pt is up IND in room, tolerating a therapeutic diabetic diet. Pt slept intermittently throughout night.?Pt weight taken at 0620, pt was 290.5 lbs.
[2022-07-07 07:33] VITALS: PULSE 76
[2022-07-07 07:54] LABS: Chloride* 103 mmol/L (96-114); Potassium* 3.8 mmol/L (3.6-5.1); Sodium* 140 mmol/L (135-149)
[2022-07-07 07:57] LABS: Basophils Absolute Auto 0.02 K/uL (0.00-0.30); Basophils Percent Auto 0.3 % (0.0-3.0); Creatinine* 1.5 mg/dL (0.5-1.5); Eosinophils Absolute Auto 0.23 K/uL (0.00-0.50); Eosinophils Percent Auto 3.1 % (0.0-7.0); Est. Creatinine Clearance* 42.17; Estimated Glomerular Filt Rate 46 ml/min; Hematocrit 39.8 % (37.0-53.0); Hemoglobin* 12.5 gm/dL (13.5-17.5); Mean Corpuscular HGB Conc 31 gm/dL (32-36); Mean Corpuscular Hemoglobin 29 pg (26-34); Mean Corpuscular Volume 92 fL (80-100); Monocytes Percent Auto 11.3 % (0.0-11.0); Neutrophils Absolute Auto 5.04 K/uL (1.7-7.0); Neutrophils Percent Auto 68.3 % (42.0-72.0); Platelet Count* 145 K/uL (140-440); RDW Coefficient of Variation % 14.9 % (11.5-15.5); Red Blood Count 4.34 m/uL (4.30-5.90); White Blood Count* 7.37 K/uL (4.50-11.00)
[2022-07-07] MEDS: GLIMEPIRIDE 4 MG TABLET PO (07:57)
[2022-07-07] MEDS: MAGNESIUM OXIDE 400 MG TABLET PO (07:58)
[2022-07-07] MEDS: METFORMIN 1,000 MG TABLET 1000 MG PO (07:58)
[2022-07-07] MEDS: METOPROLOL TARTRATE 50 MG TABLET PO (07:58)
[2022-07-07] MEDS: ISOSORBIDE MONONITRATE ER 30 MG TAB PO (07:58)
[2022-07-07] MEDS: SODIUM CHLORIDE 0.9 % (FLUSH) 10 ML SYRINGE 5 ML IVF (07:58)
[2022-07-07] MEDS: FUROSEMIDE 40 MG TABLET PO (07:58)
[2022-07-07] MEDS: INSULIN PROT/ASP (NOVOLOG 70/30) 100 UNIT/ML 50 UNIT SUBCUT (07:59)
[2022-07-07 08:00] LABS: Slide Review Reflex No
[2022-07-07 08:19] VITALS: RESP 20; O2SAT 95
[2022-07-07 08:21] VITALS: BP 149/79; PULSE 76; RESP 20; TEMP 36.4; O2SAT 95
[2022-07-07 08:35] LABS: Blood Urea Nitrogen* 26 mg/dL (7-30); Carbon Dioxide* 31 mmol/L (20-32); Glucose* 130 mg/dL (60-115)
[2022-07-07 08:36] LABS: Calcium* 8.9 mg/dL (8.4-10.6)
[2022-07-07 09:15] VITALS: PULSE 76; RESP 20; TEMP 36.4
--- NOTE | 2022-07-07 09:47 | NUTR.NU ---
NOLAN with MD consult for diet education related to CHF. RDN visited with patient whom reported he will be discharging this morning. He reports he does not add salt to his food and his does not add salt when she cooks meals at home. He declined diet education at this time for himself as well as designated caregiver, however he did accept educational materials related to low sodium diet for CHF to take home. He did not have any questions at this time. RDN's contact information was provided and patient was encouraged to call with questions.
[2022-07-07 10:09] VITALS: BP 149/79; PULSE 76; RESP 20; TEMP 36.4
--- NOTE | 2022-07-07 10:11 | PC.NURSE ---
Discharge: Patient pleasant and cooperative. Up independently, walked in long with staff and tolerated the activity well. Vitals stable and WNL. IV removed with catheter intact. Discussed discharge instructions with patient, spouse and son in law. Follow up and new medication orders reviewed. Patient discharged via wheelchair @ 1008, discharged to home.
--- NOTE | 2022-07-07 14:02 | P.DS_ITS ---
DS: Providers Provider Date Seen: 07/07/22 Date of admission: 07/06/22 14:46 Primary care physician: Trace Quijano MD Admitting Clinician: Anamika Washburn MD Attending Physician on discharge: Anamika Washburn MD Date of Discharge: 07/07/22 DS: Diagnosis Discharge Diagnosis (1) Congestive heart failure: Status: Acute Problem details: Diuresed about 10 lb overnight. Discharge on furosemide 40 mg daily pending outpatient followup. Patient fears furosemide will harm his kidneys. Emphasize the critical importance of him continue to take his diuretic to help his dyspnea. Discussed outpatient monitoring and management of heart failure including sodium restriction, monitoring daily weights, monitoring for dyspnea. 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; status post 3V CABG 2006; percutaneous coronary angiography with angioplasty x1 in 2010 (could not deploy a stent) (3) Insulin dependent diabetes mellitus: Status: Acute Problem details: - on Metformin, Glimepiride, and BID 70/30 - continue home medications + accuchecks and SSI (4) CKD (chronic kidney disease): Status: Acute Problem details: - baseline creatinine 1.5-1.7 (5) GERMÁN on CPAP: Status: Acute Problem details: - continue CPAP at night (6) Atrial fibrillation: Status: Acute Problem details: - unclear if true history of this vs junctional rhythm (per chart review), not anticoagulated, follows with Cardiology as an outpatient DS: Summary Hospital Course Hospital Course: 82-year-old male admitted to the hospital with heart failure exacerbation causing dyspnea weight gain and edema. Patient was seen a couple weeks ago in the emergency department and prescribed furosemide but he did not pick it up because of fear of harming his kidneys. Reviewed this today and he is in agreement with continuing furosemide as an outpatient. In the hospital he was given IV furosemide 80 mg and diuresed almost 10 lb overnight. Today he reports his breathing is much better. Status at Discharge Functional status at discharge: independent ambulation Overall status at discharge: patient is progressing back to baseline Time Spent with Patient Time attestation: Total time spent providing and/or coordinating discharge services: Time spent: Greater than 30 minutes Exam Narrative: Exam Narrative: He is alert and appears in no distress. Breathing is unlabored. He he has a rare basilar crackle. Otherwise clear to auscultation. Cardiovascular: S1, S2, somewhat irregular rhythm. Abdomen is soft without tenderness or mass. Extremities with 1+ edema in his ankles. Const: Vital Signs, click to edit/add: Vital Signs - 24 hr 07/06/22 16:02 07/06/22 15:23 07/06/22 16:02 Temperature 97.2 F L Pulse Rate 96 Pulse Rate [Left A pical] 67 Respiratory Rate 20 20 Blood Pressure Blood Pressure [Le ft Arm] 122/105 H Pulse Oximetry 99 96 Oxygen Delivery Me thod Room Air Room Air 07/06/22 19:00 07/06/22 23:00 07/06/22 23:00 Temperature 97.6 F Pulse Rate Pulse Rate [Left A pical] 64 59 L Respiratory Rate 20 20 22 Blood Pressure Blood Pressure [Le ft Arm] 145/82 H Pulse Oximetry 93 97 Oxygen Delivery Me thod Room Air Room Air 07/06/22 23:00 07/06/22 23:00 07/07/22 03:00 Temperature 97.7 F 97.8 F Pulse Rate 60 Pulse Rate [Left A pical] 59 L 77 Respiratory Rate 22 20 Blood Pressure Blood Pressure [Le ft Arm] 139/98 H 124/77 Pulse Oximetry 97 97 Oxygen Delivery Me thod Room Air Room Air 07/07/22 07:33 07/07/22 08:19 07/07/22 08:21 Temperature 97.5 F L Pulse Rate 76 Pulse Rate [Left A pical] 76 Respiratory Rate 20 20 Blood Pressure Blood Pressure [Le ft Arm] 149/79 H Pulse Oximetry 95 95 Oxygen Delivery Me thod Room Air Room Air 07/07/22 09:15 07/07/22 10:09 Temperature 97.5 F L 97.5 F L Pulse Rate 76 76 Pulse Rate [Left A pical] Respiratory Rate 20 20 Blood Pressure 149/79 H Blood Pressure [Le ft Arm] Pulse Oximetry Oxygen Delivery Me thod Documenting provider has reviewed patient's vital signs: yes DS: Data Data Completed and Pending Labs on day of discharge: Labs from last 24 hours 07/07/22 07/06/22 05:59 13:45 WBC 7.37 7.17 RBC 4.34 4.29 L Hgb 12.5 L 12.4 L Hct 39.8 40.0 MCV 92 93 MCH 29 29 MCHC 31 L 31 L RDW Coeff of Sandra 14.9 14.8 Plt Count 145 147 Neut % (Auto) 68.3 71.2 Lymph % (Auto) 17.0 L 15.1 L [place] % (Auto) 11.3 H 10.0 Eos % (Auto) 3.1 3.3 Baso % (Auto) 0.3 0.3 Neut # (Auto) 5.04 5.10 Lymph # (Auto) 1.30 1.10 [place] # (Auto) 0.80 0.70 Eos # (Auto) 0.23 0.24 Baso # (Auto) 0.02 0.02 INR 1.19 H APTT 34 H Sodium 140 140 Potassium 3.8 5.1 Chloride 103 106 Carbon Dioxide 31 30 BUN 26 24 Creatinine 1.5 1.4 Estimated Creat Clear 42.17 45.18 Estimated GFR 46 50 Glucose 130 H 205 H Calcium 8.9 8.8 Total Bilirubin 0.9 Direct Bilirubin 0.3 AST 23 ALT 18 Alkaline Phosphatase 84 Troponin I < 0.01 L C-Reactive Protein 0.9 NT-Pro-B Natriuret Pep 841 Total Protein 7.5 Albumin 4.2 SARS-CoV-2 (PCR) Negative SARS-CoV-2 Influenza Type A (PCR) Negative PCR FLU A Influenza Type B (PCR) Negative PCR FLU B RSV (PCR) Negative PCR RSV Discharge Plan Discharge Disposition: Home, Self-Care Date of Admission: 07/06/22 14:46 Attending Provider on Discharge: Hema Farah Primary Care Provider: Trace Quijano Condition: Improved Anticipated Discharge Date/Time: 07/07/22 10:00 Discharge Medications: New furosemide 40 mg Tablet 40 mg PO DAILY@0800 Qty: 30 0RF magnesium oxide 400 mg (241.3 mg magnesium) Tablet 400 mg PO BIDWM Qty: 60 0RF Continued atorvastatin 40 mg tablet 40 mg PO HS metoprolol tartrate 50 mg tablet 50 mg PO BID Humulin 70/30 U-100 KwikPen 100 unit/mL (70-30) insulin pen 50 - 51 unit subcut BID isosorbide mononitrate 30 mg tablet extended release 24 hr 30 mg PO DAILY Patient Comments: TAKE HALF TABLET BY MOUTH DAILY metformin 1,000 mg tablet 1,000 mg PO BIDWMEAL Patient Comments: TAKE 1 TABLET BY MOUTH TWICE DAILY with meals glimepiride 4 mg tablet 4 mg PO DAILY Patient Comments: TAKE ONE TABLET BY MOUTH ONE TIME DAILY WITH FOOD (DME) insulin syringe-needle U-100 [BD Veo Insulin Syringe UF] 1/2 mL 31 gauge x 15/64 syringe MISCELLANEOUS Patient Comments: use to inject insulin injections twice daily. amlodipine 5 mg tablet 5 mg PO DAILY Discharge Orders: Discharge Order (Routine); Ordered 07/07/22 Ordered By: Hema Farah Patient Education: Furosemide (By mouth), Magnesium Oxide (By mouth), Heart Failure (DC) Additional Instructions: Check your weight every morning when you get up and record the weight to show your doctor. If your weight increases by 2 lb in a day or 3 lb in a week you may need adjustment of your diuretic/furosemide dose. Talk to your doctor about this. If you are having more shortness of breath call your doctor Activity Level: Activity as Tolerated Discharge Diet: 2 gm Sodium Follow Up Appointments: Trace Quijano MD [Primary Care Provider] - 07/21/22 11:10 am (Appointments at [facility], in [place]. Will check heart failure, blood tests, basic metabolic panel and magnesium.) Forms: [employer] Info Instructions
== END 2022-07-07 10:08 | disposition home or self-care (01) ==
LOC: ED 13:39 → MEDSURG 14:47
PROVIDERS: Admitting Provider Family Medicine; Emergency Provider Family Medicine; PCP Family Medicine; Visit Provider Family Medicine
DX: I50.9 Heart failure, unspecified (principal); I25.10 Atherosclerotic heart disease of native coronary artery without angina pectoris; I48.91 Unspecified atrial fibrillation; I51.7 Cardiomegaly; R60.0 Localized edema; R63.5 Abnormal weight gain; Z68.39 Body mass index [BMI] 39.0-39.9, adult; R06.01 Orthopnea; I12.9 Hypertensive chronic kidney disease with stage 1 through stage 4 chronic kidney disease, or unspecified chronic kidney disease; N18.9 Chronic kidney disease, unspecified; E11.9 Type 2 diabetes mellitus without complications; Z79.4 Long term (current) use of insulin; Z79.84 Long term (current) use of oral hypoglycemic drugs; Z98.61 Coronary angioplasty status; G47.33 Obstructive sleep apnea (adult) (pediatric); Z99.89 Dependence on other enabling machines and devices; Z95.1 Presence of aortocoronary bypass graft; R06.00 Dyspnea, unspecified; Z95.0 Presence of cardiac pacemaker; Z87.891 Personal history of nicotine dependence; Z85.46 Personal history of malignant neoplasm of prostate; Z98.49 Cataract extraction status, unspecified eye
CPT/HCPCS: 36415; 71045; 80048; 80076; 82962; 83880; 84484; 85025; 85610; 85730; 86140; 87502; 87634; 87635; 93005; 94761; 96372; 96375; 99285; G0378; A9270; J1940

== ENCOUNTER 2024-02-24 17:57 | Inpatient (IN) | payer MEDICARE, BC, SELFPAY ==
[2024-02-24] VITALS (8 sets, daily range): BP systolic 131–148; BP diastolic 53–70; PULSE 68–77; RESP 20; TEMP 37.1–37.6; O2SAT 89–95; BMI 36.9; BMI 37.5
--- NOTE | 2024-02-24 18:17 | CRLHL7_ITS ---
For Patients: As a result of the Cures Act, medical imaging exams and procedure reports are released immediately into your electronic medical record. You may view this report before your referring provider. If you have questions, please contact your health care provider. INDICATION: Shortness of breath. TECHNIQUE: Chest 1 views. COMPARISON: July 06, 2022. FINDINGS: Cardiovascular and mediastinum: Stable cardiomegaly and vasculature. Unchanged left chest wall pacemaker device Lungs and pleural spaces: Low lung volumes. No sign of infiltrate or mass. No sign of pleural effusion. No pneumothorax. Bones and soft tissues: Sternotomy. No significant findings. IMPRESSION: Low lung volumes. No acute or significant findings. No significant interval change. Dictated by Moises Lozano MD @ 02/24/2024 6:55:03 PM (Electronically Signed)
--- NOTE | 2024-02-24 18:20 | ED.GENADULT ---
HPI - General Adult General Chief complaint: Weakness Stated complaint: Flu symptoms Time Seen by Provider: 02/24/24 18:11 Source: patient Mode of arrival: EMS Limitations: no limitations History of Present Illness HPI narrative: 84-year-old male, history of atrial fibrillation, diabetes, coronary artery disease, chronic kidney disease, obstructive sleep apnea on CPAP, presenting today with weakness over the last 2 days. He states that today he had no energy could not even get himself out of bed to use the bathroom. He complains of feeling congested, cough. States that he had a fever at home. Feels achy from head to toe. Has not eaten very much in the last 2 days. The check his blood sugars at home this afternoon they were in the mid 200s. He also has not been taking his medications. He denies chest pain or abdominal pain. No vomiting. Does feel nauseated. Denies any diarrhea. Denies any skin rashes. Patient received 250 mL of normal saline in the ambulance. Related Data Home Medications ?Medication ?Instructions ?Recorded ?Confirmed glimepiride 4 mg tablet 4 mg PO DAILY 01/21/22 07/06/22 insulin syringe-needle U-100 /01/21/22 01/21/22 mL 31 gauge x 15/64 (BD Veo Insulin Syringe Ultra-Fine) isosorbide mononitrate 30 mg 30 mg PO DAILY 01/21/22 07/06/22 tablet,extended release 24 hr metformin 1,000 mg tablet 1,000 mg PO BIDWMEAL 01/21/22 07/06/22 amlodipine 5 mg tablet 5 mg PO DAILY 06/21/22 07/06/22 atorvastatin 40 mg tablet 40 mg PO HS cholesterol 07/06/22 07/06/22 insulin NPH-regular 70-30 U-100 50 - 51 unit subcut BID 07/06/22 07/06/22 insulin 100 unit/mL subcutaneous pen (Humulin 70/30 U-100 Romero) metoprolol tartrate 50 mg tablet 50 mg PO BID 07/06/22 07/06/22 Previous Rx's ?Medication ?Instructions ?Recorded furosemide 40 mg tablet 40 mg PO DAILY@0800 #30 tabs 07/07/22 magnesium oxide 400 mg (241.3 mg 400 mg PO BIDWM #60 tabs 03/23/23 magnesium) tablet Allergies Allergy/AdvReac Type Severity Reaction Status Date / Time No Known Drug Allergies Allergy Verified 02/24/24 18:01 Review of Systems Status of ROS: Reports: 10 or more systems reviewed and unremarkable except as noted in History and below [facility] Medical History (Updated 02/24/24 @ 19:55 by Vesta Kidd MD) HFrEF (heart failure with reduced ejection fraction) ?I50.20 - Unspecified systolic (congestive) heart failure (ICD-10) Pacemaker ?Z95.0 - Presence of cardiac pacemaker (ICD-10) Macular degeneration ?H35.30 - Unspecified macular degeneration (ICD-10) GERMÁN on CPAP ?G47.33 - Obstructive sleep apnea (adult) (pediatric) (ICD-10) ?Z99.89 - Dependence on other enabling machines and devices (ICD-10) Prostate cancer ?C61 - Malignant neoplasm of prostate (ICD-10) Insulin dependent diabetes mellitus CKD (chronic kidney disease) ?N18.9 - Chronic kidney disease, unspecified (ICD-10) CAD (coronary artery disease) ?I25.10 - Atherosclerotic heart disease of [place] coronary artery without angina pectoris (ICD-10) Surgical History S/P CABG x 4 ?Z95.1 - Presence of aortocoronary bypass graft (ICD-10) H/O cataract extraction ?Z98.49 - Cataract extraction status, unspecified eye (ICD-10) S/P placement of cardiac pacemaker ?Z95.0 - Presence of cardiac pacemaker (ICD-10) H/O radical prostatectomy ?Z90.79 - Acquired absence of other genital organ(s) (ICD-10) Social History Narrative: Lives with [place] near [place]. 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 Two adult daughters in the area. Quit smoking in the 1980s, no alcohol use. Highest level of school completed/degree received: high school graduate Smoking Status: Former smoker Do you use any of these nicotine containing products: None Second hand tobacco smoke exposure: No How often do you have a drink containing alcohol: never How often do you have six or more drinks on one occasion: Never AUDIT-C Alcohol total score: 0 Non-prescribed substance use: denies use Caffeine: Yes service: No Exam Narrative: Exam Narrative: Obese, well-developed patient in no acute distress. Alert and oriented. Answers questions appropriately. Mood and affect are appropriate. Thoughts are goal oriented and rational. No tangential or magical thinking noted. Patient speaks in full sentences without needing to catch his breath. He is hard of hearing. He appears quite fatigued. Sound congested. HEENT: Normocephalic atraumatic. Pupils are equally round reactive to light. Extraocular muscles are intact. Conjunctivae are injected bilaterally. Moist mucous membranes. Posterior pharynx is normal. Neck is soft without any lymphadenopathy. Cardiovascular: Heart is regular rate and rhythm S1 and S2 are present without any murmurs. Lungs: Clear to auscultation bilaterally no wheezes rhonchi or rales are appreciated. Patient takes deep breaths without any discomfort. Abdomen: Protuberant and nontender. Normal bowel sounds. Extremities: Bilateral lower extremities show trace edema. Skin: Well perfused without any obvious rashes. Const: Vital Signs, click to edit/add: Vital Signs - 24 hr 02/24/24 18:02 02/24/24 18:46 02/24/24 19:00 Temperature 99.6 F Pulse Rate 77 71 Pulse Rate [Pulse Oximeter] 71 Respiratory Rate 20 Blood Pressure [Ri ght Upper Arm] 131/53 L Pulse Oximetry 92 93 93 Oxygen Delivery Me thod Room Air 02/24/24 19:15 02/24/24 19:38 Temperature Pulse Rate 74 76 Pulse Rate [Pulse Oximeter] Respiratory Rate Blood Pressure [Ri ght Upper Arm] Pulse Oximetry 92 94 Oxygen Delivery Me thod Course Course ED Course: EKG, read by me, shows a ventricular paced rhythm with a pulse of 71. CBC shows thrombocytopenia with a platelet count of 130. Chest x-ray, read by me, does not show any acute infiltrates. Triple swab is positive for COVID-19. Sodium is slightly low at 129, chemistries otherwise unremarkable. Glucose 237. Total bili slightly elevated at 1.8, LFTs otherwise normal. Normal troponin. UA pending at this time. Patient was able to drink fluids and did receive 250 mL of normal saline in the ambulance. Vital Signs Vital signs: Initial Vital Signs Temperature 99.6 F 02/24/24 18:02 Temperature Source Temporal Artery Scan 02/24/24 18:02 Pulse Rate 71 02/24/24 18:02 Respiratory Rate 20 02/24/24 18:02 Blood Pressure 131/53 L 02/24/24 18:02 Blood Pressure Mean 79 02/24/24 18:02 Blood Pressure Position High-Fowlers 02/24/24 18:02 Pulse Oximetry 92 02/24/24 18:02 Oxygen Delivery Method Room Air 02/24/24 18:02 Vital Signs Temperature 99.6 F 02/24/24 18:02 Pulse Rate 71 02/24/24 18:02 Respiratory Rate 20 02/24/24 18:02 Blood Pressure 131/53 L 02/24/24 18:02 Pulse Oximetry 92 02/24/24 18:02 Oxygen Delivery Method Room Air 02/24/24 18:02 Temperature 99.6 F 02/24/24 18:02 Pulse Rate 68 02/24/24 19:45 Respiratory Rate 20 02/24/24 18:02 Blood Pressure 131/53 L 02/24/24 18:02 Pulse Oximetry 89 02/24/24 19:45 Oxygen Delivery Method Room Air 02/24/24 18:02 Medications Administered Medications: Discontinued Medications Generic Name Dose Route Start Last Admin Trade Name Freq PRN Reason Stop Dose Admin Acetaminophen 500 mg 02/24/24 18:16 02/24/24 18:51 Acetaminophen 500 Mg Tablet PO 02/24/24 18:17 500 mg ONCE ONE Administration Medical Decision Making [facility] Narrative Medical decision making narrative: Elderly gentleman with multiple comorbidities presenting with COVID-19 and significant weakness requiring assistance. Patient will be admitted for management at this time. Lab Data Lab results reviewed: Yes I reviewed the patient's lab results Labs: Lab Results 02/24/24 02/24/24 Range/Units 18:15 18:35 WBC 9.27 (4.50-11.00) K/uL RBC 4.39 (4.30-5.90) m/uL Hgb 13.1 L (13.5-17.5) gm/dL Hct 41.2 (37.0-53.0) % MCV 94 (80-100) fL MCH 30 (26-34) pg MCHC 32 (32-36) gm/dL RDW Coeff of Sandra 15.2 (11.5-15.5) % Plt Count 130 L (140-440) K/uL Neut % (Auto) 81.6 H (42.0-72.0) % Lymph % (Auto) 4.3 L (20-44) % Gaines % (Auto) 13.6 H (0.0-11.0) % Eos % (Auto) 0.1 (0.0-7.0) % Baso % (Auto) 0.3 (0.0-3.0) % Neut # (Auto) 7.60 H (1.7-7.0) K/uL Lymph # (Auto) 0.40 L (0.90-2.90) K/uL Gaines # (Auto) 1.30 H (0.00-0.90) K/UL Eos # (Auto) 0.01 (0.00-0.50) K/uL Baso # (Auto) 0.03 (0.00-0.30) K/uL Abs Immat Gran (auto) 0.01 (0.00-0.30) K/uL Imm/Tot Granulo (auto) 0.1 % Sodium 129 L (135-149) mmol/L Potassium 4.1 (3.6-5.1) mmol/L Chloride 102 (96-114) mmol/L Carbon Dioxide 21 (20-32) mmol/L Anion Gap 6 L (7-15) mEq/L BUN 26 (7-30) mg/dL Creatinine 1.5 (0.5-1.5) mg/dL Estimated Creat Clear 40.69 Estimated GFR 45 ml/min Glucose 237 H (60-115) mg/dL Lactate 1.1 (0.5-1.9) mmol/L Calcium 8.2 L (8.4-10.6) mg/dL Total Bilirubin 1.8 H (0.1-1.5) mg/dL Direct Bilirubin 0.4 (0.0-0.5) mg/dL AST 23 (12-35) U/L ALT 15 (4-50) U/L Alkaline Phosphatase 88 (40-150) U/L Troponin I 0.02 (0.01-0.04) ng/mL Total Protein 7.2 (6.0-8.3) g/dL Albumin 4.1 (3.3-5.0) g/dL SARS-CoV-2 (PCR) POSITIVE SARS-CoV-2 A (Negative) Monoscreen Negative (Negative) Influenza Type A (PCR) Negative PCR FLU A (Negative) Influenza Type B (PCR) Negative PCR FLU B (Negative) RSV (PCR) Negative PCR RSV (Negative) Imaging Data Chest x-ray: Attestation: I have reviewed the pertinent imaging results. Radiologist's impression: TECHNIQUE: Chest 1 views. COMPARISON: July 06, 2022. FINDINGS: Cardiovascular and mediastinum: Stable cardiomegaly and vasculature. Unchanged left chest wall pacemaker device Lungs and pleural spaces: Low lung volumes. No sign of infiltrate or mass. No sign of pleural effusion. No pneumothorax. Bones and soft tissues: Sternotomy. No significant findings. IMPRESSION: Low lung volumes. No acute or significant findings. No significant interval change. ECG Data Attestation: I personally reviewed and interpreted this ECG as follows: Discharge Plan Discharge Clinical Impression: COVID-19, Weakness, Hyponatremia Patient Disposition: Admitted As Observation
--- OUTSIDE RECORDS SUMMARY | 2024-02-24 18:29 | XMS_ITS | Clinical Summary ---
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 1 diabetic pair of shoes for home use. Diagnosis Type 2 Diabetes mellitus. 1 Each 0 08/04/2011 Active aspirin enteric coated (ECOTRIN) 325 mg tablet Take 1 tablet by mouth once daily with a meal. 0 08/11/2014 Active medication order composer 1 Capsule two times daily. Eye multivitamin, Focus 0 03/01/2019 Active lancetsIndications: Diabetes mellitus with neurological manifestations, uncontrolled Test 2 times per day. Diagnosis Type 2 Diabetes, on insulin. Fast Click 102 Each 6 12/17/2020 Active blood-glucose meterIndications:Di abetes mellitus with neurological manifestations, uncontrolled Dispense meter, test strips, lancets covered by pt ins. E11.9 NIDDM type II - Test 2 times/day. Reason: low blood sugar and on insulin. Accucheck guide meter 1 Each 12/17/2020 Active medication order composer Inject As Directed. Patient gets lucentis injection into right eye every 6 months 0 08/02/2021 Active miscellaneous medical supply (Blood Pressure Cuff) miscIndications:Debbie juanita hypertension As directed. Home blood pressure monitoring for Essential hypertension Diagnosis. Upper arm automatic Cuff. 1 Each 07/07/2022 Active magnesium oxide (MAG-OX 400) 400 mg tabletIndications:S ick sinus syndrome (HC) Take 1 Tablet (400 mg) by mouth two times daily. 180 Tablet 3 07/12/2022 Active cholecalciferol, vitamin D3, (VITAMIN D3 ORAL) Take 5,000 Units/day by mouth once daily. Active CPAPIndications:GERMÁN (obstructive sleep apnea) CPAP machine for home use at pressure 10 cmw, full face mask x1/3month with a full face cushion x1/mo 1 Each 11 11/30/2022 Active nitroglycerin (NITROSTAT) 0.4 mg sublingual tabletIndications:A therosclerosis of pilot point coronary artery of pilot point heart without angina pectoris Place 1 Tablet (0.4 mg) under the tongue every 5 minutes if needed for Chest Pain. Use up to 3 doses in 15 minutes. 25 Tablet 3 04/03/2023 Active BD Veo Insulin Syringe UF 1/2 mL 31 gauge x 15/64 syrgIndications:Nancy betes mellitus type 2 with neurological manifestations (HC) use to inject insulin injections twice daily. 200 Each 3 04/23/2023 Active blood sugar diagnostic (Accu-Chek Guide test strips) stripIndications:Di abetes mellitus type 2 with neurological manifestations (HC) Dispense item covered by pt ins. E11.9 NIDDM type II - Test 2 times/day. Reason: multiple insulin injections and high blood sugars. 200 Each 3 08/03/2023 Active metoprolol succinate (TOPROL XL) 50 mg sustained-release tabletIndications:P rimary hypertension Take 1 Tablet (50 mg) by mouth two times daily. 180 Tablet 3 08/03/2023 Active insulin nph-regular (NovoLIN 70/30 U-100 Insulin) 100 unit/mL (70-30) injIndications:Diab etes mellitus type 2 with neurological manifestations (HC) INJECT 53 UNITS SUBCUTANEOUS IN THE MORNING BEFORE MEALS. 53 U IN THE EVENING W SUPPER MEAL. 60 mL 2 08/03/2023 Active amLODIPine (NORVASC) 5 mg tabletIndications:P rimary hypertension Take 1 Tablet (5 mg) by mouth once daily. 90 Tablet 3 12/04/2023 Active atorvastatin (LIPITOR) 40 mg tabletIndications:C oronary artery disease due to lipid rich plaque Take 1 Tablet (40 mg) by mouth at bedtime. FOR CHOLESTEROL 90 Tablet 3 12/04/2023 Active glimepiride (AMARYL) 4 mg tabletIndications:D iabetes mellitus type 2 with neurological manifestations (HC) TAKE ONE TABLET BY MOUTH DAILY WITH A MEAL FOR DIABETES 90 Tablet 2 12/04/2023 Active isosorbide mononitrate (IMDUR) 30 mg extended release tablet 24 HourIndications:Cor onary artery disease due to lipid rich plaque Take 0.5 Tablets (15 mg) by mouth once daily. 45 Tablet 2 12/04/2023 Active metFORMIN (GLUCOPHAGE) 1,000 mg tabletIndications:D iabetes mellitus type 2 with neurological manifestations (HC) Take 1 Tablet (1,000 mg) by mouth two times daily with meals. For diabetes. 180 Tablet 2 12/04/2023 Active dapagliflozin propanediol (FARXIGA) 10 mg tabletIndications:I schemic cardiomyopathy Take 1 Tablet (10 mg) by mouth once daily. 90 Tablet 3 02/09/2024 Active bumetanide (BUMEX) 2 mg tabletIndications:A cute on chronic HFrEF (heart failure with reduced ejection fraction) (HC) Take 1 Tablet (2 mg) by mouth once daily in the morning. If you have weight gain of 3lbs in one day and your home scale is greater than 275lb take an additional tablet 90 Tablet 02/12/2024 Active dapagliflozin propanediol (FARXIGA) 10 mg tabletIndications:I schemic cardiomyopathy Take 1 Tablet (10 mg) by mouth once daily. 90 Tablet 3 12/28/2022 01/30/20 24 Discontinu ed(Reorder (E-cancel not sent)) bumetanide (BUMEX) 2 mg tabletIndications:A cute on chronic HFrEF (heart failure with reduced ejection fraction) (HC) Take 1 Tablet (2 mg) by mouth once daily in the morning. Take 1 tablet by mouth every morning, if you have weight gain of 3lbs in one day your home scale is greater than 275lb take an additional 1 tablet 2mg. 90 Tablet 11/15/2023 02/05/20 Discontinu ed(Reorder (E-cancel not sent)) dapagliflozin propanediol (FARXIGA) 10 mg tabletIndications:I schemic cardiomyopathy Take 1 Tablet (10 mg) by mouth once daily. 01/30/2024 01/30/20 Discontinu ed(Reorder (E-cancel not sent)) dapagliflozin propanediol (FARXIGA) 10 mg tabletIndications:I schemic cardiomyopathy Take 1 Tablet (10 mg) by mouth once daily. 90 Tablet 3 01/30/2024 02/09/20 Discontinu ed(Reorder (E-cancel not sent)) bumetanide (BUMEX) 2 mg tabletIndications:A cute on chronic HFrEF (heart failure with reduced ejection fraction) (HC) Take 1 Tablet (2 mg) by mouth once daily in the morning. If you have weight gain of 3lbs in one day and your home scale is greater than 275lb take an additional tablet 90 Tablet 02/05/2024 02/07/20 Discontinu ed(Reorder (E-cancel not sent)) bumetanide (BUMEX) 2 mg tabletIndications:A cute on chronic HFrEF (heart failure with reduced ejection fraction) (HC) Take 1 Tablet (2 mg) by mouth once daily in the morning. If you have weight gain of 3lbs in one day and your home scale is greater than 275lb take an additional tablet 90 Tablet 02/08/2024 02/12/20 Discontinu ed(Reorder (E-cancel not sent)) Active Problems Problem Noted Date Diagnosed Date COVID-19 virus infection 04/04/2023 Overview (04/04/2023): March 2023: POsitive clinic test with symptoms. Treatment with Paxlovid. Acute systolic CHF (congestive heart failure) Overview (07/24/2022): June 2022, admitted to [facility] for diuresis. July 2022: Lasix (Furosemide) then changed to Bumex Major depressive disorder, single episode, mild 08/02/2021 Hyperparathyroidism, secondary renal 08/02/2021 Stage 3a chronic kidney disease 08/02/2021 Hyperopia of both eyes with astigmatism and pres byopia 04/27/2021 Pterygium eye, left 04/27/2021 Bilateral pseudophakia 04/27/2021 AMD (age-related macular degeneration), bilatera l 04/27/2021 Mild depression 03/29/2020 Morbid (severe) obesity due to excess calories 1 05/30/2019 Presence of permanent cardiac pacemaker 10/14/19 Overview (07/11/2022): September 2019: DCPPM placed for Chronotropic incompetence??and bradycardia (sinus node dysfunction) with evidence of junctional escape. June 2022: Heart Monitor: AV Sequential pacing, with 22% PVC. Vitamin D deficiency 04/30/2018 Overview (04/30/2018): August 2017: Vitamin D 19.5, April 2018: treating with Vitamin D 5,000 Units. Esophageal dysphagia 01/14/2017 Overview (01/14/2017): Dec 2016: food getting stuck For years. Trying omeprazole. No previous EGD. GERMÁN 06/10/2002 AHI- 16 03/05/2015 Diabetic neuropathy, painful 10/05/2012 Adenomatous colon polyp 08/03/2012 Overview (08/06/2012): Colonoscopy 07/2012 polyps, repeat in 5 years so due 2018. Pain in joint, shoulder region 07/04/2012 Overview (07/04/2012): MRI Feb 2012 of Right shoulder; mild Supraspinatus tendonopathy without tear and mild AC Joint DJD/subdeltoid bursitis. Obesity (BMI 30-39.9) 11/05/2010 Chronic kidney disease 01/07/2010 Overview (08/06/2018): December 2009 and: Creatinine equals 1.32. March 2010: Creatinine 1.52 and GFR: 45. May 2010: Creatinine 1.35 and GFR: 52. September 2012: Creatinine 1.32 and GFR: Jan: Creatinine 1.37 and GFR 51. Feb 2015: Creatinine 1.3 and GFR 53. September 2016: Creatinine 1.44 and GFR 48. Dec 2016: Creatinine 1.67, GFR 40. REferring to nephrology consult, saw Dr. Ricks for consult Jan 2017. July 2018: Creatinine 1.5, GFR 45. Hypotestosteronism 10/13/2009 Overview (10/13/2009): [facility] 09/30/09: to do IM testosterone injections at [facility]? Erectile dysfunction 05/02/2008 Overview (10/13/2009): ON cialis, seeing [facility]: October 2008: cialis and pump. Follow up 06/17/09: checking testosterone. Low testosterone, replacement with injections started 09/30/09: see [facility] note. Cor athrscl-uns vessel 09/20/2006 Overview (05/12/2014): ~ [address] Barnes. ~ 3 vessel bypass 06/16/06: HUNT to LAD and [facility] Vein to Obtuse [place] and PDA. VASCULAR CARE INITIATIVE ~ Jun 09: stress Cardiolite at [facility] Heart: no ischemia and Ejection fraction of 55% ~ October 2010: Thalium Stress Test: Medium sized ischemic defect involving the anterior, anterolateral, and inferolateral vieira. There is a very small amount of underlying infarction in the inferolateral wall associated with this defect. 2. 24-hour delayed imaging shows complete viability in the small inferolateral infarct zone. Unspecified disease of pericardium 09/20/2006 Overview (07/19/2009): 06/28-07/05/06 around time of coronary artery bypass. Echo on 07/14/06 cleared. Diabetes mellitus with neuro logical manifestations, uncontrolled 06/08/2001 Overview (07/16/2018): Goal for A1c is <8. History of coronary artery disease. March 2013: No diabetic eye disease. [facility]. May 2010: Metformin decreased to 1000 twice daily (from 1500 am and 1000pm) due to insurance only covering 1000 twice daily. March 2013: Continue levemir, if cost goes up next year with insurance karla dailey', consider changing to 70/30 Nph/Regular insulin if needed. July 2013: Adding short acting meal insulin and also changed glyburide to glimepiride due to cost and hypoglycemia resk. Switched to Humalog 75/25 mix BID. 07/11/18: no Diabetic retinopathy at eye Clinic visit. Hypercholesterolemia 02/23/2000 Overview (09/04/2011): June 2011: Cardiology changed from simvastatin 40 to lipitor 40 + fish oils. Primary hypertension 02/23/2000 Overview (01/18/2023): September 2016: due to light headed symptoms, decreased lisinopril from 40 to 20mg to see if imrpoves. April 2017: Dr. Ricks decreased lisinopril to 10mg. 01/2022: Dr. Birch stopped lisinopril due to elevated Potassium. Resolved Problems Problem Noted Date Diagnosed Date Resolved Date GERMÁN 06/10/2002 AHI- 16 06/04/20122014 Prostate cancer 05/02/2008 08/02/2021 Overview (05/02/2008): s/p radical prostatectamy 2006. DIABETES MELLITUS TYPE II--w/o eye disease 06/13/2007 01/19/2009 Obstructive sleep apnea 09/20/200612/16 Overview (02/24/2015): 06/10/2002: AHI 16. 2002 got CPAP. New machine around 2007. Atrial fibrillation 06/26/2006 08/05/19 24 Coronary atherosclerosis of unspecified type of vessel, pilot point or graft 05/25/2005 09/20/2006 Contact dermatitis and other eczema due to plants (except food) 11/25/2004 09/20/2006 Chest pain, unspecified 10/11/2004 02/0 11/2005 Sebaceous cyst 07/09/2004 05/25/2005 ROTATOR CUFF SPRAIN 03/16/2001 09/21/19 07 ATHEROSCLEROSIS, CORONARY 02/23/2000 DIABETES 11/25/2004 Overview (11/25/2004): date is when problem was entered Encounters Date Type Department Care Team Description 02/23/2024 Procedure Only [facility] [address] [place] [address] Device Check (Remote Medtronic Pacemaker E... 02/20/2024 Telephone [facility] [address] [place] [address] Glenn Birch MD Appointment 02/12/2024 Orders Only [facility] [address] [place] [address] Kym Samuels RN <No scans attached> 02/07/2024 Refill [facility] [address] [place] [address] Glenn Birch MD Refill Request (Bumetanide ) 02/05/2024 Refill [facility] [address] [place] [address] Glenn Birch MD Refill Request (Bumex) 01/30/2024 Telephone [facility] [address] [place] [address] Glenn Birch MD Medication Management 01/24/2024 Refill [facility] [address] [place] [address] Trace Quijano MD Refill Request ( dapagliflozin propanediol (FARXIGA) 10 mg tablet /) 01/02/2024 [facility]phone [facility] [address] [facility] [address] Trace Quijano MD Form 12/25/2023 Orders Only [facility] Scanner 1 scan: (1-Ord) RCM, 12/25/2023 12/04/2023 8:40 AM CDT Office Visit [facility] [address] [place] [address] Trace Quijano MD Diabetes (Last Diabetic Check: 08/03/2023/Last Diabetic Eye Exam: 05/29/2023/Last Diabetic Education: 02/22/2021) 12/04/2023 Travel from Last 3 Months Immunizations Name Administration Dates Next Due AMB Influenza, IIV3 (Age >=3 years) Preserve Free (Flu Clinic Only) 01/20/2009 AMB Influenza, IIV3 (Age >=3 years)(Flu Clinic Only) 02/02/2010 COVID-19 vaccine ([employer] NTSkydeck 30mcg/0.3mL) AVI SALEH 09/21/2021,06/30/2020,06/09/2020 Influenza, High-dose Inactivated 12/07/2015,02/15,02/07/2014 Influenza, IIV3 (Age >=3 years) 01/09/20 13,02/06/2012,02/07/2011,2007,02/13/2007,03/14/2005,01/26/2004,1 04/20/2001,02/05/2001,02/29/2000 Influenza, IIV4 01/13/2017 Influenza, Inactivated AIIV4 (Age 65+ Years) Preserv Free 02/04/2022,03/18/2021,03/30/2020 Influenza, Inactivated IIV3 (Age 65+ Years) Preserv Free 04/01/2019,12/25/2017 Pneumococcal Poly,23-Valent (Pneumovax) 07/22/2013,01/10/2003 Pneumococcal conj 13-Valent (Prevnar 13) 12/07/2015 Td (Age >=7 Years) 04/17/1999 Td, Preservative Free (age > = 7 Years) 03/09/2009 Tdap 01/21/2022 Family History Medical History Relation Name Comments Cancer Brother 1 Heart Disease Brother 2 Eder Diabetes type II Mother Genetic Other positive for co ranary artery disease Cancer Sister Relation Name Status Comments Brother 1 Brother 2 Eder Father Mother Other Sister Social History Tobacco Use Types Packs/Day Years Used Date Smoking Tobacco: Former Cigarettes 1 30 1 955 - 04/17/1984 Smokeless Tobacco: Never Tobacco Cessation:Counseling Given: Yes Comments:quit 20 yrs ago Alcohol Use Standard Drinks/Week Comments No 0 (1 standard drink = 0.6 oz pur e alcohol) Alcoholic Drinks/day: 0 PHQ-2 Answer Date Recorded PHQ-2 TOTAL SCORE 2 01/16/2023 Social Connections Answer Date Recorded Do you often feel lonely or isolated from those around you? 4 12/04/2023 Financial Resource Strain Answer Date R ecorded Difficulty of Paying Living Expenses 2 12/04/2023 Difficulty of Paying Living Expenses 1 12/04/2023 Food Insecurity Answer Date Recorded Do you worry your food will run out before you are able to buy more? 1 12/04/2023 Transportation Needs Answer Date Record ed Does lack of transportation keep you from medica l appointments? 1 12/04/2023 Does lack of transportation keep you from work, meetings or getting things that you need? 1 12/04/2023 Housing Stability Answer Date Recorded What is your housing situation today? 1 12/04/2023 Sex and Gender Information Value Date Recorded Sex Assigned at Not on file Gender Identity Not on file Sexual Orientation Not on file Obstetrics History Last Filed Vital Signs Vital Sign Reading Time Taken Comments Blood Pressure 108/64 12/04/2023 8:54 AM CDT Pulse 66 12/04/2023 8:54 AM CDT Temperature 37.2 ??C (98.9 ??F) 04/03/2023 9:11 AM CS T Respiratory Rate 18 03/06/2023 3:07 PM ART OBJECTS REPAIRER Oxygen Saturation 97% 12/04/2023 8:54 AM CDT Inhaled Oxygen Concentration - - Weight 129.6 kg (285 lb 12.8 oz) 12/04/2023 8:54 AM CDT Height 185.4 cm (6' 1) 03/06/2023 3:07 PM ART OBJECTS REPAIRER Body Mass Index 37.71 03/06/2023 3:07 PM ART OBJECTS REPAIRER Plan of Treatment Upcoming Encounters Date Type Department Care Team (Late st Contact Info) Description 03/19/2024 9:30 AM ART OBJECTS REPAIRER Office Visit [facility] [address] [place] [address] Pina Renteria, ARUNA [address] [place] [address] 05/06/2024 9:05 AM ART OBJECTS REPAIRER Office Visit [facility] [address] [place] [address] Trace Quijano MD [address] [place] [address] 06/14/2024 9:30 AM ART OBJECTS REPAIRER Office Visit [facility] [address] [place] [address] [place] [address] [place] [address] 06/28/2024 Procedure Only [facility] [address] [place] [phone] Health Maintenance Due Date Last Done Comments Zoster (shingles) series for age 50+ (1 of 2) 1989 RSV vaccine for adults or (1 - 1-dose 75+ series) 2014 COVID-19 vaccine series ( season) 2023 09/21/2021, 01/19/2021, 06/30/2020, Additional history exists Influenza for age 65+ 12/17/2023 02/04/2022 , 03/18/2021, 03/30/2020, Additional history exists Medicare Wellness for age 65+ 01/17/2024, 01/03/2022, 12/07/2020, Additional history exists Depression screening for age 12+ 01/19/2024 01/18/2023, 01/17/2023, 01/17/2023, Additional history exists BMI (ht and wt on same day) for age 18+ 03/06/2024 03/06/2023, 01/16/2023, 11/30/2022, Additional history exists Tetanus booster 01/22/2032 01/21/2022, 02/16, 04/17/1999 Pneumococcal series for age 65+ Completed 12/07/2015, 07/22/2013, 01/10/2003 Tdap Completed 01/21/2022 Procedures Procedure Name Priority Date/Time Associated Diagnosis Comments SCAN-EYE EXAM 12/25/2023 12:00 AM CDT URINE ALBUMIN TO CREATININE RATIO, RANDOM Routine 12/04/2023 8:30 AM CDT 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) HEMOGLOBIN A1C MONITORING (POCT) Routine 12/04/2023 8:30 AM CDT 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) from Last 3 Months Results * SCAN-EYE EXAM (12/25/2023 12:00 AM CDT) Scanner OTHER * (ABNORMAL) URINE ALBUMIN TO CREATININE RATIO, RANDOM (12/04/2023 8:30 AM CDT) ALB RAND URINE 16.3 mg/L 12/04/2023 2:51 PM CDT [facility] CREATININE,URIN E 0.21 g/L 12/04/2023 2:51 PM CDT [facility] ALBUMIN TO CREATININE RATIO,RAND UR 77.6(H) <30.0 mg/g creat 12/04/2023 2:51 PM CDT [facility] Urine URINE SPECIMEN / Unknown Non-Blood / Unknown 12/04/2023 8:30 AM CDT 12/04/2023 8:30 AM CDT Narrative [facility] - 12/04/2023 2:51 PM CDT If Albumin to Creatinine Ratio is elevated, consider the following: ? Elevations seen with incipient nephropathy associated ?? with diabetes mellitus or hypertension. Stress, exercise,hematuria, ?? and urinary tract infection may also produce elevated results. If clinically indicated, confirm with ?24 Hour Albumin to Creatinine Ratio. ?? Trace Quijano MD URINE Performing Organization Address [facility]/ZIP Co de Phone Number [facility] [address] [place] [address], [place] * (ABNORMAL) HEMOGLOBIN A1C MONITORING (POCT) (12/04/2023 8:30 AM CDT) [facility] HEMOGLOBIN A1C MONITORING (POCT) 8.3(H) <=6.4 % 12/04/2023 8:40 AM CDT [facility] Blood BLOOD SPECIMEN / Unknown Venipuncture / Unknown 12/04/2023 8:30 AM CDT 12/04/2023 8:30 AM CDT Narrative [facility] - 12/04/2023 8:40 AM CDT ? (<=6.9%) ? Indicates good control ? (7.0% to 7.9%) ? Indicates fair control ? (>=8.0%) ? Indicates poor control ?? NOTE: ??These thresholds are guidelines and ?individual targets may vary. Falsely low levels may be seen with: Recent Transfusion, Recent Significant Blood Loss, Hemolytic Diseases, or Falsely elevated levels may be seen with: Untreated Anemias, Splenectomy ? Trace Quijano MD CHEMISTRY Performing Organization Address [facility] Co de Phone Number [facility] [address] [place] [address], [place] [phone] from Last 3 Months Advance Directives * Full Code (Latest Code Status on File) Date Activated Date Inactivated Comments 08/19/2022 8:36 AM 08/19/2022 2:05 PM Question Answer Comments Code Status Discussion: Reviewed Preferences * Full Code Date Activated Date Inactivated Comments 10/11/2019 9:37 AM 10/12/2019 1:10 PM * Full Code Date Activated Date Inactivated Comments 11/05/2010 2:40 PM 11/06/2010 2:18 PM * Full Code Date Activated Date Inactivated Comments 11/05/2010 6:48 AM 11/05/2010 2:40 PM Care Teams Machine Container Washer Relationship Specialty Start Date End Date Trace Quijano MD PCP - General 05/30/08 Glenn Birch MD Cardiology Cardiovascular Disease 01/08/13 Charlotte Ricks MD [address] [facility] [address] [id number] Nephrology Nephrology 02/06/17 Malachi Gonzales MD [address] [id number] Ophthalmology Surgery - Ophthalmology 08/03/20 Walt Garrido DPM [address] [place] [address] PODIATRY Surgery - Podiatric 12/07/20 Sky Metcalf MD [address] [place] [address] Sleep Medicine 12/07/20 Paolo Marcial MD [address] [address] Consulting Physician Cardiology - Electrophysiology 08/18/22
[2024-02-24 18:39] LABS: Lactate* 1.1 mmol/L (0.5-1.9)
[2024-02-24 18:41] LABS: Basophils Absolute Auto 0.03 K/uL (0.00-0.30); Basophils Percent Auto 0.3 % (0.0-3.0); Eosinophils Absolute Auto 0.01 K/uL (0.00-0.50); Eosinophils Percent Auto 0.1 % (0.0-7.0); Hematocrit 41.2 % (37.0-53.0); Hemoglobin* 13.1 gm/dL (13.5-17.5); Immature Granulocytes Abs Auto 0.01 K/uL (0.00-0.30); Immature Granulocytes Pct Auto 0.1 %; Lymphocytes Percent Auto 4.3 % (20-44); Mean Corpuscular HGB Conc 32 gm/dL (32-36); Mean Corpuscular Hemoglobin 30 pg (26-34); Mean Corpuscular Volume 94 fL (80-100); Monocytes Percent Auto 13.6 % (0.0-11.0); Neutrophils Percent Auto 81.6 % (42.0-72.0); Platelet Count* 130 K/uL (140-440); RDW Coefficient of Variation % 15.2 % (11.5-15.5); Red Blood Count 4.39 m/uL (4.30-5.90); Slide Review Reflex No; White Blood Count* 9.27 K/uL (4.50-11.00)
[2024-02-24 18:49] LABS: Mono Screen* Negative (Negative)
[2024-02-24] MEDS: ACETAMINOPHEN 500 MG TABLET PO (18:51)
[2024-02-24 18:55] LABS: Albumin* 4.1 g/dL (3.3-5.0); Chloride* 102 mmol/L (96-114)
[2024-02-24 18:56] LABS: Potassium* 4.1 mmol/L (3.6-5.1); Sodium* 129 mmol/L (135-149)
[2024-02-24 18:58] LABS: Alkaline Phosphatase* 88 U/L (40-150); Anion Gap 6 mEq/L (7-15); Aspartate Amino Transferase* 23 U/L (12-35); Bilirubin Direct* 0.4 mg/dL (0.0-0.5); Bilirubin Total* 1.8 mg/dL (0.1-1.5); Blood Urea Nitrogen* 26 mg/dL (7-30); Carbon Dioxide* 21 mmol/L (20-32); Creatinine* 1.5 mg/dL (0.5-1.5); Est. Creatinine Clearance* 40.69; Estimated Glomerular Filt Rate 45 ml/min; Total Protein* 7.2 g/dL (6.0-8.3)
[2024-02-24 18:59] LABS: Alanine Aminotransferase* 15 U/L (4-50); Calcium* 8.2 mg/dL (8.4-10.6); Glucose* 237 mg/dL (60-115)
[2024-02-24 19:02] LABS: PCR FLU A Negative PCR FLU A (Negative); PCR FLU B Negative PCR FLU B (Negative); PCR RSV Negative PCR RSV (Negative); SARS PCR* POSITIVE SARS-CoV-2 (Negative)
[2024-02-24 19:10] LABS: Troponin I* 0.02 ng/mL (0.01-0.04)
--- NOTE | 2024-02-24 19:41 | PM.IMHP1 ---
Hospitalist- H&P: HPI History of Present Illness Date Seen: 02/24/24 Chief complaint: Flu symptoms Narrative: Ramses Teran is a 84 year old male who presented to the ER by ambulance for weakness. He's felt poorly for 2 days, noted that last night he came inside for supper and didn't feel like eating, which isn't typical for him. This morning he was very weak and had a hard time getting up to go to the bathroom. [place] febrile, + cough and congestion. Had a fall (didn't hit head) and had to call the neighbors for help getting him up, then called EMS for hospital transfer. He didn't take his medications today. ER Course and Findings: - positive COVID - sodium 129 (corrects to 131 for BG of >250), received 250mL of IVFs - platelets 130, normal WBC, + lymphopenia - bilirubin 1.8 (baseline normal) - no acute abnormalities on CXR - temperature 99.6, 89% on RA Histories updated below. PCP is Dr. Quijano at the [facility]. Review of Systems Status of ROS: Reports: 10 or more systems reviewed and unremarkable except as noted in History and below Narrative: - specifically denies CP or palpitations PFSH [facility] Medical History (Updated 02/24/24 @ 21:15 by Anamika Washburn MD) HFrEF (heart failure with reduced ejection fraction) ?I50.20 - Unspecified systolic (congestive) heart failure (ICD-10) Pacemaker ?Z95.0 - Presence of cardiac pacemaker (ICD-10) Macular degeneration ?H35.30 - Unspecified macular degeneration (ICD-10) GERMÁN on CPAP ?G47.33 - Obstructive sleep apnea (adult) (pediatric) (ICD-10) ?Z99.89 - Dependence on other enabling machines and devices (ICD-10) Prostate cancer ?C61 - Malignant neoplasm of prostate (ICD-10) Insulin dependent diabetes mellitus CKD (chronic kidney disease) ?N18.9 - Chronic kidney disease, unspecified (ICD-10) CAD (coronary artery disease) ?I25.10 - Atherosclerotic heart disease of [place] coronary artery without angina pectoris (ICD-10) Surgical History S/P CABG x 4 ?Z95.1 - Presence of aortocoronary bypass graft (ICD-10) H/O cataract extraction ?Z98.49 - Cataract extraction status, unspecified eye (ICD-10) S/P placement of cardiac pacemaker ?Z95.0 - Presence of cardiac pacemaker (ICD-10) H/O radical prostatectomy ?Z90.79 - Acquired absence of other genital organ(s) (ICD-10) Social History (Updated 02/24/24 @ 21:16 by Anamika Washburn MD) Narrative: Lives with on [place] near [place]; Riddhi would be MDM if needed. 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 Two adult daughters in the area. Quit smoking in the 1980s, no alcohol use. Requests Full Code status. Highest level of school completed/degree received: high school graduate Smoking Status: Former smoker Do you use any of these nicotine containing products: None Second hand tobacco smoke exposure: No How often do you have a drink containing alcohol: never How often do you have six or more drinks on one occasion: Never AUDIT-C Alcohol total score: 0 Non-prescribed substance use: denies use Caffeine: Yes service: No Meds Home Medications and Allergies Home Medications ?Medication ?Instructions ?Recorded ?Confirmed ?Type glimepiride 4 mg tablet 4 mg PO DAILY 01/21/22 02/24/24 History insulin syringe-needle U-100 04/1801/21/22 01/21/22 History mL 31 gauge x 15/64 (BD Veo Insulin Syringe Ultra-Fine) isosorbide mononitrate 30 mg 30 mg PO DAILY 01/21/22 02/24/24 History tablet,extended release 24 hr metformin 1,000 mg tablet 1,000 mg PO BIDWMEAL 01/21/22 02/24/24 History amlodipine 5 mg tablet 5 mg PO DAILY 06/21/22 02/24/24 History atorvastatin 40 mg tablet 40 mg PO HS cholesterol 07/06/22 02/24/24 History insulin NPH-regular 70-30 U-100 50 - 51 unit subcut BID 07/06/22 07/06/22 History insulin 100 unit/mL subcutaneous pen (Humulin 70/30 U-100 Romero) metoprolol tartrate 50 mg tablet 50 mg PO BID 07/06/22 02/24/24 History bumetanide 2 mg tablet 2 mg PO DAILY 02/24/24 02/24/24 History insulin human U-100 NPH-regulr 53 unit subcut BID 02/24/24 02/24/24 History 70-30 mix 100 unit/mL subcutaneous susp (Novolin 70/30 U-100 Insulin) metoprolol succinate 50 mg 50 mg PO BID 02/24/24 02/24/24 History tablet,extended release 24 hr Allergies Allergy/AdvReac Type Severity Reaction Status Date / Time No Known Drug Allergies Allergy Verified 02/24/24 18:01 Exam Narrative: Exam Narrative: GEN: Alert and oriented, sitting up in bed and speaking in full sentences, nontoxic HEENT: EOMIs bilaterally, no scleral icterus CV: RRR, No concerning murmurs R: LCTA bilaterally without concerning wheezing, air movement adequate Ext: 2+ edema BLE, symmetric Skin: No concerning skin lesions or rashes on exposed skin Neuro: No focal deficits Psych: Appropriate Const: Vital Signs, click to edit/add: Vital Signs - 24 hr 02/24/24 18:02 Temperature 99.6 F Pulse Rate [Pulse Oximeter] 71 Respiratory Rate 20 Blood Pressure [Ri ght Upper Arm] 131/53 L Pulse Oximetry 92 Oxygen Delivery Me thod Room Air Hospitalist - H&P: Result Labs Labs: Short CBC 02/24/24 Range/Units 18:35 WBC 9.27 (4.50-11.00) K/uL Hgb 13.1 L (13.5-17.5) gm/dL Hct 41.2 (37.0-53.0) % Plt Count 130 L (140-440) K/uL BMP 02/24/24 18:35 Sodium 129 L Potassium 4.1 Chloride 102 Carbon Dioxide 21 BUN 26 Creatinine 1.5 Glucose 237 H Calcium 8.2 L Cardiac Enzymes 02/24/24 Range/Units 18:35 Troponin I 0.02 (0.01-0.04) ng/mL Liver Function 02/24/24 Range/Units 18:35 Total Bilirubin 1.8 H (0.1-1.5) mg/dL Direct Bilirubin 0.4 (0.0-0.5) mg/dL AST 23 (12-35) U/L ALT 15 (4-50) U/L Alkaline Phosphatase 88 (40-150) U/L Albumin 4.1 (3.3-5.0) g/dL Assessment and Plan Assessment and plan (1) COVID-19: Problem comment: - currently stable on RA (89% in ED), no need for COVID-specific therapies at this time - if recurrent hypoxia or worsening symptoms, consider addition of antivirals/Dexamethasone Status: Acute (2) Hyponatremia: Problem comment: - 129 (corrects to 131/132 for hyperglycemia), baseline 140 - likely contributing to weakness - likely 2/2 increased free water intake in the setting of illness - follow sodium, + fluid restriction Status: Acute (3) Weakness: Problem comment: - likely 2/2 acute illness, therapies ordered Status: Acute (4) HFrEF (heart failure with reduced ejection fraction): Problem comment: - and diastolic dysfunction, sees Cardiology as outpatient - on Metoprolol, Dapagliflozin, Bumetanide, Imdur - requesting to hold diuretics upon admission given weakness and iatrogenic polyuria - last TTE 11/2022: 1. Technically challenging echocardiogram. 2. Normal left ventricular chamber size. Abnormal ventricular septal motion due to pacing. 3. Calculated left ventricular ejection fraction (modified Garcia technique) is 50 %. 4. Mild concentrically increased left ventricular wall thickness. 5. Mild mitral valve regurgitation. 6. Estimated right ventricular systolic pressure is 38 mmHg. 7. The EF has improved compared to the previous echo. Estimated EF: 50-55% Normal left ventricular chamber size. Mild concentrically increased left ventricular wall thickness. Low-normal left ventricular systolic function. Calculated left ventricular ejection fraction (modified Garcia technique) is 50 %. Abnormal ventricular septal motion due to pacing. Grade 2 left ventricular diastolic dysfunction consistent with moderately increased left ventricular filling pressure. Status: Acute (5) Insulin dependent diabetes mellitus: Problem comment: - last A1C 8.3 (11/2023) - on Metformin, Glimepiride, and BID 70/30 - continue home medications + accuchecks and SSI Status: Acute (6) CKD (chronic kidney disease): Problem comment: - baseline creatinine 1.6-1.7 Status: Acute (7) GERMÁN on CPAP: Status: Acute Plan - per above - family updated at bedside, questions answered
[2024-02-24 19:44] LABS: Appearance Urine Clear (Clear); Bilirubin Urine Negative (Negative); Blood Urine 1+ (Negative); Color Urine Yellow (Yellow); Glucose Urine 2+ (Negative); Ketones Urine 2+ (Negative); Leukocyte Esterase Urine Negative (Negative); Nitrite Urine Negative (Negative); Protein Urine 2+ (Negative); Specific Gravity Urine 1.015 (1.000-1.030); Urobilinogen Urine 0.2 (0.2-1.0); pH Urine 5.5 (5.0-8.5)
[2024-02-24 20:04] LABS: RBC Urine 0-2 (0-2); WBC Urine 0-2 (0-5)
[2024-02-24 20:05] LABS: Other Sediment Urine Few; Tyrosine Crystal Urine Few
[2024-02-24] MEDS: INSULIN ASPART 100 UNIT/ML SUBCUT (21:50)
[2024-02-25 03:00] VITALS: BP 134/51; PULSE 71; RESP 18; TEMP 36.7; O2SAT 98
--- NOTE | 2024-02-25 06:35 | PC.NURSE ---
Expanse downtime overnight. Pt arrived to the floor at 1950. Alert, oriented and vitally stable. Lung sounds clear in the upper lobes but are crackled in the bases. Pt states a cough is present and there is some sputum production. Pt hard of hearing, needs some occasional repeating. Pt using bedside urinal, tolerating well. Pt on [address], tolerating well.
[2024-02-25 07:25] LABS: Basophils Absolute Auto 0.02 K/uL (0.00-0.30); Basophils Percent Auto 0.3 % (0.0-3.0); Eosinophils Absolute Auto 0.04 K/uL (0.00-0.50); Eosinophils Percent Auto 0.6 % (0.0-7.0); Hemoglobin* 13.3 gm/dL (13.5-17.5); Immature Granulocytes Abs Auto 0.01 K/uL (0.00-0.30); Immature Granulocytes Pct Auto 0.2 %; Lymphocytes Percent Auto 12.1 % (20-44); Mean Corpuscular HGB Conc 32 gm/dL (32-36); Mean Corpuscular Hemoglobin 30 pg (26-34); Mean Corpuscular Volume 94 fL (80-100); Monocytes Percent Auto 18.3 % (0.0-11.0); Neutrophils Absolute Auto 4.53 K/uL (1.7-7.0); Neutrophils Percent Auto 68.5 % (42.0-72.0); Platelet Count* 121 K/uL (140-440); RDW Coefficient of Variation % 15.3 % (11.5-15.5); Red Blood Count 4.45 m/uL (4.30-5.90); White Blood Count* 6.61 K/uL (4.50-11.00)
[2024-02-25 07:26] LABS: Chloride* 102 mmol/L (96-114)
[2024-02-25 07:28] LABS: Potassium* 3.9 mmol/L (3.6-5.1); Sodium* 137 mmol/L (135-149)
[2024-02-25 07:30] LABS: Alkaline Phosphatase* 80 U/L (40-150); Anion Gap 11 mEq/L (7-15); Aspartate Amino Transferase* 26 U/L (12-35); Bilirubin Total* 1.5 mg/dL (0.1-1.5); Blood Urea Nitrogen* 26 mg/dL (7-30); Carbon Dioxide* 24 mmol/L (20-32); Creatinine* 1.2 mg/dL (0.5-1.5); Est. Creatinine Clearance* 50.86; Estimated Glomerular Filt Rate 59 ml/min; Gamma Glutamyl Transpeptidase* 27 U/L (8-55); Total Protein* 7.3 g/dL (6.0-8.3)
[2024-02-25 07:31] LABS: Alanine Aminotransferase* 16 U/L (4-50); Calcium* 8.5 mg/dL (8.4-10.6); Glucose* 161 mg/dL (60-115)
[2024-02-25 07:32] LABS: Slide Review Reflex No
[2024-02-25 09:43] VITALS: BP 145/75; PULSE 78; RESP 20; TEMP 37; O2SAT 97
[2024-02-25 09:44] VITALS: RESP 18; O2SAT 94
--- NOTE | 2024-02-25 09:46 | RESP.RT ---
Patient up and walking around in room, no SOB noted, good gait, good movement. Patient on room air, states no SOB. BBS, both upper lobes clear with good air movement, both lower lobes with fine crackles, very slightly diminished with good air movement. Patient has good forceful, non-productive cough able to clear secretions when present. Capillary refill <2 seconds. Patient has good clear voice, slightly PAMUNKEY. Patient states he does feel better today, has more energy.
[2024-02-25] MEDS: ISOSORBIDE MONONITRATE ER 30 MG TAB PO (09:47)
[2024-02-25] MEDS: ACETAMINOPHEN 325 MG TABLET 975 MG PO (09:47)
[2024-02-25] MEDS: AMLODIPINE 5 MG TABLET PO (09:47)
[2024-02-25] MEDS: SODIUM CHLORIDE 0.9 % (FLUSH) 10 ML SYRINGE 5 ML IVF (09:48)
[2024-02-25] MEDS: METOPROLOL SUCCINATE (XL) 50 MG TAB PO (09:48)
[2024-02-25 10:12] VITALS: O2SAT 97
[2024-02-25 10:15] VITALS: PULSE 78
[2024-02-25] MEDS: INSULIN PROT/ASP (NOVOLOG 70/30) 100 UNIT/ML 53 UNIT SUBCUT (10:51)
--- NOTE | 2024-02-25 11:03 | PM.DS1 ---
DS: Providers Provider Time Seen by Provider: 10:30 Date Seen: 02/25/24 Date of admission: 02/24/24 23:07 Primary care physician: Trace Quijano MD Admitting Clinician: Anamika Washburn MD Consults: 02/24/24 21:07 Consult to Physical Therapy [CONS] Routine Comment: Reason(s) for PT Consult:: Evaluate Ambulation Any Restrictions?:: No Restrictions Consult to Respiratory Therapy [CONS] Routine Comment: Reason(s) for RT Consult:: Consult Consult to Oncology Physician [CONS] Routine Comment: Reason for Consult:: Discharge Planning Needs 02/24/24 21:09 Consult to Occupational Therapy [CONS] Routine Comment: Reason(s) for OT Consult:: Evaluate and Treat Any Restrictions?:: No Restrictions Attending Physician on discharge: Marija Urias MD DS: Diagnosis Discharge Diagnosis (1) COVID-19: Status: Acute Problem details: - currently stable on RA (89% in ED), no need for COVID-specific therapies at this time - much improved today, no fever, no hypoxia, feels much better and is ambulating independently with ease today (2) Hyponatremia: Status: Resolved Problem details: - 129 (corrects to 131/132 for hyperglycemia), baseline 140 - likely contributing to weakness - likely 2/2 increased free water intake in the setting of illness - follow sodium, + fluid restriction - 02/25/24 sodium within normal limits today, symptoms resolved (3) Weakness: Status: Resolved Problem details: - likely 2/2 acute illness, resolved (4) Elevated bilirubin: Status: Acute Problem details: - unclear significance, also has tyrosine crystals in urine - LFTs within normal limits today. These could be rechecked by his primary care provider in April (5) HFrEF (heart failure with reduced ejection fraction): Status: Chronic Problem details: - diastolic dysfunction, sees Cardiology as outpatient - on Metoprolol, Dapagliflozin, Bumetanide, Imdur - requesting to hold diuretics upon admission given weakness and iatrogenic polyuria - last TTE 11/2022: 1. Technically challenging echocardiogram. 2. Normal left ventricular chamber size. Abnormal ventricular septal motion due to pacing. 3. Calculated left ventricular ejection fraction (modified Garcia technique) is 50 %. 4. Mild concentrically increased left ventricular wall thickness. 5. Mild mitral valve regurgitation. 6. Estimated right ventricular systolic pressure is 38 mmHg. 7. The EF has improved compared to the previous echo. Estimated EF: 50-55% Normal left ventricular chamber size. Mild concentrically increased left ventricular wall thickness. Low-normal left ventricular systolic function. Calculated left ventricular ejection fraction (modified Garcia technique) is 50 %. Abnormal ventricular septal motion due to pacing. Grade 2 left ventricular diastolic dysfunction consistent with moderately increased left ventricular filling pressure. (6) GERMÁN on CPAP: Status: Chronic (7) CKD (chronic kidney disease): Status: Chronic Problem details: - baseline creatinine 1.6-1.7, CKD stage IIIA (8) CAD (coronary artery disease): Status: Chronic Problem details: - s/p [employer] with stents x4 in 1995; status post 3V CABG 2006; percutaneous coronary angiography with angioplasty x1 in 2010 (could not deploy a stent) - asymptomatic at present (9) Insulin dependent diabetes mellitus: Status: Chronic Problem details: - last A1C 8.3 (11/2023) - on Metformin, Glimepiride, and BID 70/30 DS: Summary Hospital Course Hospital Course: Per H&P: Ramses Teran is a 84 year old male who presented to the ER by ambulance for weakness. He's felt poorly for 2 days, noted that last night he came inside for supper and didn't feel like eating, which isn't typical for him. This morning he was very weak and had a hard time getting up to go to the bathroom. [place] febrile, + cough and congestion. Had a fall (didn't hit head) and had to call the neighbors for help getting him up, then called EMS for hospital transfer. He didn't take his medications today. ER Course and Findings: - positive COVID - sodium 129 (corrects to 131 for BG of >250), received 250mL of IVFs - platelets 130, normal WBC, + lymphopenia - bilirubin 1.8 (baseline normal) - no acute abnormalities on CXR - temperature 99.6, 89% on RA 02/25/24 patient is much improved, back to baseline. Sodium and LFTs have corrected. Weakness has resolved. Patient is discharging home today in improved and stable condition. Note to PCP: Patient had a transiently elevated bilirubin and tyrosine crystals in his urine. Consider follow-up LFTs when he sees you in April for his annual visit. Time Spent with Patient Time attestation: Total time spent providing and/or coordinating discharge services: Exam Narrative: Exam Narrative: General: No acute distress. Awake, alert, oriented x3. Up moving around the room and in an out of the bathroom independently with ease. No pallor. No jaundice. Oropharynx: Clear. Mucous membranes moist. Cardiovascular: Regular rate and rhythm. No murmurs, gallops, or rubs. Respiratory: Clear to auscultation bilaterally. No wheezes or crackles. Abdomen: Bowel sounds present. Soft, nondistended, nontender. Extremities: 1+ bilateral pedal edema. Const: Vital Signs, click to edit/add: Vital Signs - 24 hr 02/24/24 18:02 02/24/24 18:46 02/24/24 19:00 Temperature 99.6 F Pulse Rate 77 71 Pulse Rate [Pulse Oximeter] 71 Respiratory Rate 20 Blood Pressure [Ri ght Arm] Blood Pressure [Ri ght Upper Arm] 131/53 L Blood Pressure [ri ght forearm] Pulse Oximetry 92 93 93 Oxygen Delivery Me thod Room Air 02/24/24 19:15 02/24/24 19:38 02/24/24 19:45 Temperature Pulse Rate 74 76 68 Pulse Rate [Pulse Oximeter] Respiratory Rate Blood Pressure [Ri ght Arm] Blood Pressure [Ri ght Upper Arm] Blood Pressure [ri ght forearm] Pulse Oximetry 92 94 89 Oxygen Delivery Me thod 02/24/24 19:50 02/24/24 19:50 02/24/24 23:00 Temperature 98.7 F Pulse Rate Pulse Rate [Pulse Oximeter] 70 Respiratory Rate 20 20 20 Blood Pressure [Ri ght Arm] 148/70 H Blood Pressure [Ri ght Upper Arm] Blood Pressure [ri ght forearm] Pulse Oximetry 95 95 95 Oxygen Delivery Me thod Room Air Room Air Room Air 02/24/24 23:00 02/25/24 03:00 02/25/24 09:43 Temperature 98.1 F 98.6 F Pulse Rate Pulse Rate [Pulse Oximeter] 70 71 78 Respiratory Rate 20 18 20 Blood Pressure [Ri ght Arm] 145/75 H Blood Pressure [Ri ght Upper Arm] Blood Pressure [ri ght forearm] 134/51 L Pulse Oximetry 98 97 Oxygen Delivery Me thod Room Air Room Air 02/25/24 09:44 02/25/24 10:12 02/25/24 10:15 Temperature Pulse Rate Pulse Rate [Pulse Oximeter] 78 Respiratory Rate 18 Blood Pressure [Ri ght Arm] Blood Pressure [Ri ght Upper Arm] Blood Pressure [ri ght forearm] Pulse Oximetry 94 97 Oxygen Delivery Me thod Room Air Room Air DS: Data Data Completed and Pending Completed studies during hospitalization: 02/24/2024 1:17 p.m. EKG: Sinus rhythm with first-degree AV block, 100 beats per minute. Septal infarct, age undetermined. 02/24/2024 7:28 p.m. EKG: Ventricular paced rhythm, 71 beats per minute. Ordering Physician: Vesta Kidd M.D. Date of Service: 02/24/24 Procedure(s): XR chest 2V Accession Number(s): [id number] cc: Vesta Kidd M.D.; Trace Quijano M.D.~ For Patients: As a result of the Cures Act, medical imaging exams and procedure reports are released immediately into your electronic medical record. You may view this report before your referring provider. If you have questions, please contact your health care provider. INDICATION: Shortness of breath. TECHNIQUE: Chest 1 views. COMPARISON: July 06, 2022. FINDINGS: Cardiovascular and mediastinum: Stable cardiomegaly and vasculature. Unchanged left chest wall pacemaker device Lungs and pleural spaces: Low lung volumes. No sign of infiltrate or mass. No sign of pleural effusion. No pneumothorax. Bones and soft tissues: Sternotomy. No significant findings. IMPRESSION: Low lung volumes. No acute or significant findings. No significant interval change. Dictated by Moises Lozano MD @ 02/24/2024 6:55:03 PM (Electronically Signed) Labs on day of discharge: Labs from last 24 hours 02/25/24 02/24/24 02/24/24 06:02 Unknown 18:35 WBC 6.61 9.27 RBC 4.45 4.39 Hgb 13.3 L 13.1 L Hct 42.0 41.2 MCV 94 94 MCH 30 30 MCHC 32 32 RDW Coeff of Sandra 15.3 15.2 Plt Count 121 L 130 L Neut % (Auto) 68.5 81.6 H Lymph % (Auto) 12.1 L 4.3 L [place] % (Auto) 18.3 H 13.6 H Eos % (Auto) 0.6 0.1 Baso % (Auto) 0.3 0.3 Neut # (Auto) 4.53 7.60 H Lymph # (Auto) 0.80 L 0.40 L [place] # (Auto) 1.20 H 1.30 H Eos # (Auto) 0.04 0.01 Baso # (Auto) 0.02 0.03 Abs Immat Gran (auto) 0.01 0.01 Imm/Tot Granulo (auto) 0.2 0.1 INR 1.20 H Sodium 137 129 L Potassium 3.9 4.1 Chloride 102 102 Carbon Dioxide 24 21 Anion Gap 11 6 L BUN 26 26 Creatinine 1.2 1.5 Estimated Creat Clear 50.86 40.69 Estimated GFR 59 45 Glucose 161 H 237 H Lactate 1.1 Calcium 8.5 8.2 L Total Bilirubin 1.5 1.8 H Direct Bilirubin 0.4 GGT 27 AST 26 23 ALT 16 15 Alkaline Phosphatase 80 88 Troponin I 0.02 Total Protein 7.3 7.2 Albumin 4.0 4.1 Urine Color Yellow Urine Appearance Clear Urine pH 5.5 Ur Specific [place] 1.015 Urine Protein 2+ A Urine Glucose (UA) 2+ A Urine Ketones 2+ A Urine Blood 1+ A Urine Nitrite Negative Urine Bilirubin Negative Urine Urobilinogen 0.2 Ur Leukocyte Esterase Negative Urine RBC 0-2 Urine WBC 0-2 Ur Squamous Epith Cells None Tyrosine Crystals Few A Other Sediment Few A Urine Bacteria None SARS-CoV-2 (PCR) Monoscreen Negative Influenza Type A (PCR) Influenza Type B (PCR) RSV (PCR) 02/24/24 18:15 WBC RBC Hgb Hct MCV MCH MCHC RDW Coeff of Sandra Plt Count Neut % (Auto) Lymph % (Auto) [place] % (Auto) Eos % (Auto) Baso % (Auto) Neut # (Auto) Lymph # (Auto) [place] # (Auto) Eos # (Auto) Baso # (Auto) Abs Immat Gran (auto) Imm/Tot Granulo (auto) INR Sodium Potassium Chloride Carbon Dioxide Anion Gap BUN Creatinine Estimated Creat Clear Estimated GFR Glucose Lactate Calcium Total Bilirubin Direct Bilirubin GGT AST ALT Alkaline Phosphatase Troponin I Total Protein Albumin Urine Color Urine Appearance Urine pH Ur Specific [place] Urine Protein Urine Glucose (UA) Urine Ketones Urine Blood Urine Nitrite Urine Bilirubin Urine Urobilinogen Ur Leukocyte Esterase Urine RBC Urine WBC Ur Squamous Epith Cells Tyrosine Crystals Other Sediment Urine Bacteria SARS-CoV-2 (PCR) POSITIVE SARS-CoV-2 A Monoscreen Influenza Type A (PCR) Negative PCR FLU A Influenza Type B (PCR) Negative PCR FLU B RSV (PCR) Negative PCR RSV Preliminary micro results at discharge 02/24/24 18:17 Urine Culture - Preliminary Urine,Clean Catch < 10,000 COL/ML GRAM NEGATIVE RODS ISOLATED NO FURTHER WORKUP Discharge Plan Discharge Disposition: Home, Self-Care Date of Admission: 02/24/24 23:07 Attending Provider on Discharge: Marija Urias Discharge Medications: Continued atorvastatin 40 mg tablet 40 mg PO HS magnesium oxide 400 mg (241.3 mg magnesium) Tablet 400 mg PO BIDWM Qty: 60 0RF isosorbide mononitrate 30 mg tablet extended release 24 hr 15 mg PO DAILY metformin 1,000 mg tablet 1,000 mg PO BIDWMEAL glimepiride 4 mg tablet 4 mg PO DAILY amlodipine 5 mg tablet 5 mg PO DAILY bumetanide 2 mg tablet 2 mg PO DAILY metoprolol succinate 50 mg tablet extended release 24 hr 50 mg PO BID Novolin 70/30 U-100 Insulin 100 unit/mL (70-30) suspension 53 unit subcut BID nitroglycerin 0.4 mg tablet, sublingual 0.4 mg sublingual Q5M PRN aspirin 325 mg tablet 325 mg PO DAILY dapagliflozin propanediol [Farxiga] 10 mg tablet 10 mg PO DAILY Discharge Orders: Discharge Order (Routine); Ordered 02/25/24 Ordered By: Marija Urias Additional Instructions: Use over the counter senna or Miralax to help with constipation. Activity Level: No Restrictions Discharge Diet: Regular Follow Up Appointments: Trace Quijano MD [Primary Care Provider] - (as needed) Forms: [facility] Info Instructions
--- NOTE | 2024-02-25 14:28 | PC.NURSE ---
Discharge: patient pleasant and cooperative, A&O. VSS, afebrile. SpO2 maintained above 90% on RA. Patient reported a headache this morning, managed with PRN medication, see MAR. Tolerating regular diet. IV removed with tip intact. Discharge instructions provided, all questions answered. Discharged to home with .
--- NOTE | 2024-02-27 11:24 | PC.SOCIAL ---
Social work consulted with physician regarding social work referral made prior to pt's discharge. Physician said there were no needs or concerns with the discharge. 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
== END 2024-02-25 13:47 | disposition home or self-care (01) | DRG 178 ==
LOC: ED 18:27 → MEDSURG 19:42
PROVIDERS: Admitting Provider Family Medicine; Emergency Provider Family Medicine; PCP Family Medicine; Visit Provider Family Medicine
DX: U07.1 COVID-19 (principal); E87.1 Hypo-osmolality and hyponatremia; I50.22 Chronic systolic (congestive) heart failure; R53.1 Weakness; G47.33 Obstructive sleep apnea (adult) (pediatric); Z99.89 Dependence on other enabling machines and devices; Z95.0 Presence of cardiac pacemaker; E80.7 Disorder of bilirubin metabolism, unspecified; I25.10 Atherosclerotic heart disease of native coronary artery without angina pectoris; E11.22 Type 2 diabetes mellitus with diabetic chronic kidney disease; N18.31 Chronic kidney disease, stage 3a; Z79.4 Long term (current) use of insulin; Z79.84 Long term (current) use of oral hypoglycemic drugs
CPT/HCPCS: 36415; 71046; 80048; 80053; 80076; 81001; 82962; 82977; 83605; 84484; 85025; 85610; 86308; 87086; 87631; 93005; 94761; 99284; 99285; A9270

== ENCOUNTER 2024-08-21 10:52 | Emergency (ER) | payer MEDICARE, BC, SELFPAY ==
--- OUTSIDE RECORDS SUMMARY | 2024-08-21 10:54 | XMS_ITS | Clinical Summary ---
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 60) As directed. 1 diabetic pair of shoes for home use. Diagnosis Type 2 Diabetes mellitus. 1 Each 0 08/04/19 12 Active aspirin enteric coated (ECOTRIN) 325 mg tablet Take 1 tablet by mouth once daily with a meal. 0 08/12/19 15 Active medication order composer 1 Capsule two times daily. Eye multivitamin, Focus 0 03/01/20 19 Active lancetsIndication s:Diabetes mellitus with neurological manifestations, uncontrolled Test 2 times per day. Diagnosis Type 2 Diabetes, on insulin. Fast Click 102 Each 6 12/18/19 21 Active blood-glucose meterIndications: Diabetes mellitus with neurological manifestations, uncontrolled Dispense meter, test strips, lancets covered by pt ins. E11.9 NIDDM type II - Test 2 times/day. Reason: low blood sugar and on insulin. Accucheck guide meter 1 Each 12/18/19 21 Active miscellaneous medical supply (Blood Pressure Cuff) miscIndications:P rimary hypertension As directed. Home blood pressure monitoring for Essential hypertension Diagnosis. Upper arm automatic Cuff. 1 Each 07/08/19 23 Active magnesium oxide (MAG-OX 400) 400 mg tabletIndications :Sick sinus syndrome (HC) Take 1 Tablet (400 mg) by mouth two times daily. 180 Tablet 3 07/13/19 23 Active cholecalciferol, vitamin D3, (VITAMIN D3 ORAL) Take 5,000 Units/day by mouth once daily. Active nitroglycerin (NITROSTAT) 0.4 mg sublingual tabletIndications :Atherosclerosis of [place] coronary artery of [place] heart without angina pectoris Place 1 Tablet (0.4 mg) under the tongue every 5 minutes if needed for Chest Pain. Use up to 3 doses in 15 minutes. 25 Tablet 3 04/03/20 23 Active metoprolol succinate (TOPROL XL) 50 mg sustained-release tabletIndications :Primary hypertension Take 1 Tablet (50 mg) by mouth two times daily. 180 Tablet 3 08/03/19 24 Active amLODIPine (NORVASC) 5 mg tabletIndications :Primary hypertension Take 1 Tablet (5 mg) by mouth once daily. 90 Tablet 3 12/04/19 24 Active atorvastatin (LIPITOR) 40 mg tabletIndications :Coronary artery disease due to lipid rich plaque Take 1 Tablet (40 mg) by mouth at bedtime. FOR CHOLESTEROL 90 Tablet 3 12/04/19 24 Active isosorbide mononitrate (IMDUR) 30 mg extended release tablet 24 HourIndications:C oronary artery disease due to lipid rich plaque Take 0.5 Tablets (15 mg) by mouth once daily. 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 For diabetes. 180 Tablet 2 12/04/19 24 Active dapagliflozin propanediol (FARXIGA) 10 mg tabletIndications :Ischemic cardiomyopathy Take 1 Tablet (10 mg) by mouth once daily. 90 Tablet 3 02/09/20 24 Active bumetanide (BUMEX) 2 mg tabletIndications :Acute on chronic HFrEF (heart failure with reduced ejection fraction) (HC) Take 0.5 Tablets (1 mg) by mouth once daily in the morning. 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 100 mL 2 06/10/19 25 Active mirtazapine 7.5 mg tabletIndications :Chronic insomnia Take 1 Tablet (7.5 mg) by mouth at bedtime. Take 10 hours before planning on waking up 30 Tablet 3 07/26/19 25 Active CPAPIndications:O SA (obstructive sleep apnea) RESMED CPAP (E0601) machine for home use at pressure: 5-15cmw, Choice of mask (A7030 or A7034) w/full face cushion (A7031) x1/mo, nasal cushion (A7032) x2/mo, or nasal pillows (A7033) x 2/mo; Length of Need: 99 months; Frequency of use: Daily 1 Each 11 07/26/19 25 Active CPAPIndications:O SA (obstructive sleep apnea) CPAP machine for home use at pressure 10 cmw, full face mask x1/3month with a full face cushion x1/mo 1 Each 12/01/19 025 Disconti nued(*Me d complete /Regimen complete /Level of care change) Active Problems Problem Noted Date Diagnosed Date Chronic kidney disease, stage 3b 05/19/2024 COVID-19 virus infection 04/04/2023 Overview (03/03/2024): March 2023: Positive clinic test with symptoms. Treatment with Paxlovid. February 2024: positive Covid-19 with hospitalization for weakness and mild hypoxia. Acute systolic CHF (congestive heart failure) Overview (07/24/2022): June 2022, admitted to [facility] for diuresis. July 2022: Lasix (Furosemide) then changed to Bumex Major depressive disorder, single episode, mild 08/02/2021 Hyperparathyroidism, secondary renal 08/02/2021 Hyperopia of both eyes with astigmatism and pres byopia 04/27/2021 Pterygium eye, left 04/27/2021 Bilateral pseudophakia 04/27/2021 AMD (age-related macular degeneration), bilatera l 04/27/2021 Mild depression 03/29/2020 Morbid (severe) obesity due to excess calories 1 05/30/2019 Presence of permanent cardiac pacemaker 10/14/19 20 Overview (07/11/2022): September 2019: DCPPM placed for Chronotropic incompetence and bradycardia (sinus node dysfunction) with evidence of [...] 09/30/09: to do IM testosterone injections at [facility]? Erectile dysfunction 05/02/2008 Overview (10/13/2009): ON cialis, [...] INITIATIVE ~ Jun 09: stress Cardiolite at [facility]: no ischemia and Ejection fraction of [...] disease. March 2013: No diabetic eye disease. [facility]. May 2010: Metformin decreased to 1000 twice daily (from 1500 am and 1000pm) due to insurance only covering 1000 twice daily. March 2013: Continue levemir, if cost goes up next year with [facility] consider changing to 70/30 Nph/Regular insulin if [...] Problem Noted Date Diagnosed Date Resolved Date Stage 3a chronic kidney disease 08/02/2021 06/09/2024 GERMÁN 06/10/2002 AHI- 16 06/04/20122014 Prostate cancer 05/02/2008 08/02/2021 Overview (05/02/2008): s/p radical prostatectamy 2006. DIABETES MELLITUS TYPE II--w/o eye disease 06/13/2007 01/19/2009 Obstructive sleep apnea 09/20/200612/16 Overview (02/24/2015): 06/10/2002: AHI 16. 2002 got CPAP. New machine around 2007. Atrial fibrillation 06/26/2006 08/05/19 24 Coronary atherosclerosis of unspecified type of vessel, [place] or graft 05/25/2005 09/20/2006 Contact dermatitis and other eczema due to plants (except food) 11/25/2004 09/20/2006 Chest pain, unspecified 10/11/200411/2005 Sebaceous cyst 07/09/2004 05/25/2005 ROTATOR CUFF SPRAIN 03/16/2001 09/21/19 07 ATHEROSCLEROSIS, CORONARY 02/23/2000 DIABETES 11/25/2004 Overview (11/25/2004): date is when problem was entered Encounters Date Type Department Care Team Description 08/20/2024 Nurse Triage [facility] [address] [place] [address] Trace Quijano MD Fall 07/25/2024 1:30 PM CDT Office Visit [facility] [address] [place] [address] Sky Metcalf MD Sleep Follow-up (cpap) 07/25/2024 Travel 07/02/2024 11:00 AM CDT Office Visit [facility] [address] [place] [address] Dennis Burns OD Eye Exam (DM CEE) 07/02/2024 Travel 06/25/2024 Telephone [facility] [address] [place] [address] Glenn Birch MD Device Check 06/17/2024 12:15 AM TAFFY CANDY MAKER Procedure Only [facility] [address] [place] [address] Device Check (Remote Medtronic Pacemaker E... 06/17/2024 Orders Only [facility] Scanner 1 scan: (1-Ord) RCM, 06/17/2024 06/14/2024 9:30 AM TAFFY CANDY MAKER Office Visit [facility] [address] [place] [address] Glenn Birch MD Follow Up (Follow up) 06/14/2024 Travel 06/10/2024 10:20 AM TAFFY CANDY MAKER Office Visit [facility] [address] [place] [address] Trace Quijano MD Diabetes (Last Diabetic Check: 12/04/2023/Last Diabetic Eye Exam: 05/29/2023/Last Diabetic Education: 02/22/2021) 06/10/2024 Travel 05/30/2024 Telephone [facility] [address] [place] [address] Trace Quijano MD Form (CPAP) 05/28/2024 2:00 PM TAFFY CANDY MAKER Office Visit [facility] [address] [place] [address] Walt Garrido DPM Follow Up (Left foot callus care) 05/28/2024 Travel from Last 3 Months Immunizations Immunization Administration Dates Next Due AMB Influenza, IIV3 (Age >=3 years) Preserve Free (Flu Clinic Only) 01/20/2009 AMB Influenza, IIV3 (Age >=3 years)(Flu Clinic Only) 02/02/2010 COVID-19 vaccine ([employer] 30mcg/0.3mL) AIV SALEH 09/21/2021,06/30/2020,06/09/2020 Influenza, High-dose Inactivated 12/07/2015,02/15,02/07/2014 Influenza, [...] PHQ-2 Answer Date Recorded PHQ-2 TOTAL SCORE 0 06/10/2024 Social Connections Answer Date Recorded Do you [...] is your housing situation today? 1 12/04/2023 Utilities Answer Date Recorded Do you have trouble paying f or utilities (for example, heat, electricity, water, phone)? 1 12/04/2023 Sex and Gender Information Value Date Recorded Sex Assigned at Not on file Legal Sex Male 5:24 AM TAFFY CANDY MAKER Gender Identity Not on file Sexual Orientation Not on file Occupation Industry Job Start Date Job End Date retired Not on file Not on file Not on file Obstetrics History Last Filed Vital Signs Vital Sign Reading Time Taken Comments Blood Pressure 138/74 07/25/2024 1:17 PM CDT Pulse 73 07/25/2024 1:17 PM CDT Temperature 37.2 C (98.9 F) 04/03/2023 9:11 AM TAFFY CANDY MAKER Respiratory Rate 18 06/14/2024 9:33 AM TAFFY CANDY MAKER Oxygen Saturation 98% 07/25/2024 1:17 PM CDT Inhaled Oxygen Concentration - - Weight 130.6 kg (288 lb) 06/14/2024 9:33 AM TAFFY CANDY MAKER Height 185.4 cm (6' 1) 06/14/2024 9:33 AM TAFFY CANDY MAKER Body Mass Index 38 06/14/2024 9:33 AM TAFFY CANDY MAKER Plan of Treatment Upcoming Encounters Date Type Department Care Team (Late st Contact Info) Description 10/25/2024 Procedure Only [facility] [address] [facility] [address] [place] [address] 10/28/2024 10:20 AM CDT Office Visit [facility] [address] [place] [address] Trace Quijano MD [address] [place] [address] 11/05/2024 9:00 AM CDT Office Visit [facility] [address] [place] [address] Sky Metcalf MD [address] [place] [address] 03/17/2025 9:30 AM TAFFY CANDY MAKER Office Visit [facility] [address] [facility] [address] [place] [address] Pina Renteria NP [address] [facility] [address] [place], [place] [address] Health Maintenance Due Date Last Done Comments Zoster (shingles) series for age 50+ (1 of 2) 1989 RSV vaccine for adults or (1 - 1-dose 75+ series) 2014 COVID-19 vaccine series ( season) 2023 09/21/2021, 01/19/2021, 06/30/2020, Additional history exists Medicare Wellness for age 65+ 01/17/2024, 01/03/2022, 12/07/2020, Additional history exists Influenza Vaccine (Season Ended) 2024 02/04/2022, 03/18/2021, 03/30/2020, Additional history exists BMI (ht and wt on same day) for age 18+ 06/14/2025 06/14/2024, 03/06/2023, 01/16/2023, Additional history exists Depression screening for age 12+ 06/14/2025 06/14/2024, 06/10/2024, 01/18/2023, Additional history exists Tetanus booster 01/22/2032 01/21/2022, 02/16, 04/17/1999 Pneumococcal series for age 50+ Completed 12/07/2015, 07/22/2013, 01/10/2003 Tdap Completed 01/21/2022 Procedures Procedure Name Priority Date/Time Associated Diagnosis Comments SCAN-EYE EXAM 06/17/2024 12:00 AM TAFFY CANDY MAKER HEMOGLOBIN A1C MONITORING (POCT) Routine 06/10/2024 10:21 AM TAFFY CANDY MAKER 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 Blood BLOOD SPECIMEN / Unknown 06/10/2024 10:21 AM TAFFY CANDY MAKER 06/10/2024 10:21 AM TAFFY CANDY MAKER Trace Quijano MD CHEMISTRY Final Res ult [facility] [address] [place] [address], [facility] [address] [place] [address] * (ABNORMAL) LIPID PANEL W REFLEX MEASURED LDL (06/10/2024 10:20 AM TAFFY CANDY MAKER) [facility] CHOLESTEROL, TOTAL 119 <200 mg/dL [facility] HDL CHOLESTEROL 39(L) > OR = 40 mg/dL [facility] TRIGLYCERIDES 207(H) <150 mg/dL [facility] Comment: If a non-fasting specimen was collected, consider repeat triglyceride testing on a fasting specimen if clinically indicated. Jose Juan et al. J. of Clin. Lipidol. 2015;9:129-169. LDL-CHOLESTEROL 53 mg/dL (calc) [facility] Comment: Reference range: <100 Desirable range <100 mg/dL for primary prevention; <70 mg/dL for patients with CHD or diabetic patients with > or = 2 CHD risk factors. LDL-C is now calculated using the Micah calculation, which is a validated novel method providing better accuracy than the Friedewald equation in the estimation of LDL-C. Jose Maria SS et al. NORBERTO. 2013;310(19): 0618-7644 (http://education.[employer]/faq/NWQ095) CHOL/HDLC RATIO 3.1 <5.0 (calc) [facility] NON HDL CHOLESTEROL 80 <130 mg/dL (calc) [facility] Comment: For patients with diabetes plus 1 major ASCVD risk factor, treating to a non-HDL-C goal of <100 mg/dL (LDL-C of <70 mg/dL) is considered a therapeutic option. Blood BLOOD SPECIMEN / Unknown 06/10/2024 10:20 AM TAFFY CANDY MAKER 06/10/2024 10:20 AM TAFFY CANDY MAKER Trace Quijano MD CHEMISTRY Final Res ult [facility] [address] [facility] [place] [address], [facility] [address] [place] [address] from Last 3 Months Insurance MEDICARE PB ONLY MEDICARE PART B HB ONLY MEDICARE PART A HB ONLY [facility] Advance Directives * Full Code (Latest Code [...] 6:48 AM 11/05/2010 2:40 PM Care Teams Campus Recruiter Relationship Specialty Start Date End Date Trace Quijano MD PCP - General 05/30/08 Glenn Birch MD [address] [facility] [address] [place] [address] [place] [address] Cardiology Cardiovascular Disease 01/08/13 Charlotte Ricks MD [address] [facility] [address] [place] [address] Nephrology Nephrology 02/06/17 Malachi Gonzales MD [address] [place] [address] Ophthalmology Surgery - Ophthalmology 08/03/20 Walt Garrido DPM [address] [place] [address] PODIATRY Surgery - Podiatric 12/07/20 Syk Metcalf MD [address] [place] [address] Sleep Medicine 12/07/20 Paolo Marcial MD [address] [facility] [address] [place] [address] Consulting Physician Cardiology - Electrophysiology 08/18/22
--- NOTE | 2024-08-21 11:04 | ED_ITS ---
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 Patient states [place] around 10:00 a.m. the morning, the golf cart got stuck and when he got out he tried to rock the golf cart back and forth to get it free. 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 Patient denies any loss of consciousness. Patient did have headache this morning, denies any nausea vomiting. Patient also has some lower neck pain. Most of his pain is in his upper back area, worse with inspiration or movement, he had difficulty sleeping last night. Denies any lower back pain. He tried some icy Hot and Tylenol last night to help with the pain. Patient denies any shortness of breath. called the clinic in [place] they instructed him to come to the emergency department. Related Data Home Medications ?Medication ?Instructions ?Recorded ?Confirmed glimepiride 4 mg tablet 4 mg PO DAILY 01/21/22 08/21/24 isosorbide mononitrate 30 mg 15 mg PO DAILY 01/21/22 08/21/24 tablet,extended release 24 hr metformin 1,000 mg tablet 1,000 mg PO BIDWMEAL 01/21/22 08/21/24 amlodipine 5 mg tablet 5 mg PO DAILY 06/21/22 08/21/24 atorvastatin 40 mg tablet 40 mg PO HS cholesterol 07/06/22 08/21/24 bumetanide 2 mg tablet 2 mg PO DAILY 02/24/24 08/21/24 insulin human U-100 NPH-regulr 53 unit subcut BID 02/24/24 08/21/24 70-30 mix 100 unit/mL subcutaneous susp (Novolin 70/30 U-100 Insulin) metoprolol succinate 50 mg 50 mg PO BID 02/24/24 08/21/24 tablet,extended release 24 hr aspirin 325 mg tablet 325 mg PO DAILY 02/25/24 08/21/24 dapagliflozin propanediol 10 mg 10 mg PO DAILY 02/25/24 08/21/24 tablet (Farxiga) nitroglycerin 0.4 mg sublingual 0.4 mg sublingual Q5M PRN 02/25/24 08/21/24 tablet Previous Rx's ?Medication ?Instructions ?Recorded magnesium oxide 400 mg (241.3 mg 400 mg PO BIDWM #60 tabs 07/07/22 magnesium) tablet Allergies Allergy/AdvReac Type Severity Reaction Status Date / Time No Known Drug Allergies Allergy Verified 02/24/24 18:01 Review of Systems Status of ROS: Reports: 10 or more systems reviewed and unremarkable except as noted in History and below [facility] Medical History (Updated 03/04/24 @ 00:01 by Carline Acuna) HFrEF (heart failure with reduced ejection fraction) ?I50.20 - Unspecified systolic (congestive) heart failure (ICD-10) Pacemaker ?Z95.0 - Presence of cardiac pacemaker (ICD-10) Macular degeneration ?H35.30 - Unspecified macular degeneration (ICD-10) GERMÁN on CPAP ?G47.33 - Obstructive sleep apnea (adult) (pediatric) (ICD-10) ?Z99.89 - Dependence on other enabling machines and devices (ICD-10) Prostate cancer ?C61 - Malignant neoplasm of prostate (ICD-10) Insulin dependent diabetes mellitus CKD (chronic kidney disease) ?N18.9 - Chronic kidney disease, unspecified (ICD-10) CAD (coronary artery disease) ?I25.10 - Atherosclerotic heart disease of [place] coronary artery without angina pectoris (ICD-10) Surgical History S/P CABG x 4 ?Z95.1 - Presence of aortocoronary bypass graft (ICD-10) H/O cataract extraction ?Z98.49 - Cataract extraction status, unspecified eye (ICD-10) S/P placement of cardiac pacemaker ?Z95.0 - Presence of cardiac pacemaker (ICD-10) H/O radical prostatectomy ?Z90.79 - Acquired absence of other genital organ(s) (ICD-10) Social History (Updated 02/24/24 @ 21:16 by Anamika Washbunr MD) Narrative: [place] near [place]; Riddhi would be MDM if needed. 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 Two adult daughters in the area. Quit smoking in the 1980s, no alcohol use. Requests Full Code status. What is your current living situation?: I presently have a place to live Problems where you live: no known problems Problems where you live details: na In the past 12 months, utilities in danger of being shut off: no In past 12 months, lack of transportation kept you from medical appts, meetings, work, or getting things needed for daily living: no In the past 12 mos, have been you worried that your food would run out before you had money to buy more?: never true In the past 12 mos, the food you bought just didn't last and you didn't have money to buy more?: never true Highest level of school completed/degree received: high school graduate Smoking Status: Former smoker Do you use any of these nicotine containing products: None Second hand tobacco smoke exposure: No How often do you have a drink containing alcohol: never How often do you have six or more drinks on one occasion: Never AUDIT-C Alcohol total score: 0 Non-prescribed substance use: denies use Caffeine: Yes How often does anyone, including family, friends and others, physically hurt you : never How often does anyone, including family, friends and others, insult or talk down to you: never How often does anyone, including family, friends and others, threaten you with harm: never How often does anyone, including family, friends and others, scream or curse at you: never service: No Exam Narrative: Exam Narrative: General: No obvious distress sitting comfortably HEENT: Pupils equal round reactive to light, extraocular muscles intact Oropharynx clear and moist Neck: Normal range of motion, mild tenderness to palpation the lower cervical spine, no step-offs, mild tenderness to palpation the lower paraspinal musculature Lungs: Clear to auscultation Heart: Normal sinus rhythm Muscle skeletal: Tender to palpation the upper posterior thoracic paraspinal musculature region bilaterally, mild midline tenderness the upper thoracic region, T4-T5 T6, no step-offs. No ecchymosis, no crepitus. Nontender to palpation the lower lumbar spine. Abdomen: Soft nontender Neuro: Alert awake and oriented x3, GCS 15 Const: Vital Signs, click to edit/add: Vital Signs - 24 hr 08/21/24 11:20 08/21/24 13:51 08/21/24 15:15 Temperature 97.6 F 98.0 F 97.5 F L Pulse Rate [Pulse Oximeter] 61 59 L 60 Respiratory Rate 20 18 18 Blood Pressure [Ri ght Upper Arm] 133/77 111/67 131/73 Pulse Oximetry 96 95 96 Oxygen Delivery Me thod Room Air Room Air Room Air Course Course ED Course: 11:00 AM: aidet performed, workup will include Tylenol 1 g, 2 Lidoderm patches 5% applied to the upper thoracic region. Will obtain CT head and cervical spine without contrast, CT chest without contrast. Will plan to rule out any posterior rib fractures or thoracic lumbar fractures. Vitals are normal at this time. Differential diagnosis include fracture, sprain, contusion, dislocation, vascular damage, ligament damage, nerve damage, tendon damage as well as other etiologies. Also consider rib fractures, pulmonary contusion, subarachnoid hemorrhage, epidural and subdural hemorrhage, concussion, close head injury. Reevaluation(s) Time of Reevaluation #1: 12:59 Reevaluation #1: CT chest without IV contrast: IMPRESSION: Mildly displaced fracture through the right aspect of the superior endplate of T5 extending posteriorly towards the inferior endplate. Dedicated CT reformats of the thoracic spine versus MRI may be considered for further evaluation. CT head and cervical spine without IV contrast: No acute intracranial or cervical pathology. CT thoracic spine without contrast IMPRESSION: Mildly displaced fracture is seen through the anterior ossification at T4-5 with extension through the right side of the superior and inferior endplates of T5. This is likely account service representative of an extension injury in the setting of diffuse idiopathic skeletal hyperostosis. Patient was updated on imaging results, will reach out to Neurosurgery at [facility] for further recommendations. After speaking with Neurosurgery, recommendations were for MR to rule out any ligamental injury, also to be fitted for a TLSO based on fracture. 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 All questions answered. Vital Signs Vital signs: Initial Vital Signs Temperature 97.6 F 08/21/24 11:20 Temperature Source Temporal Artery Scan 08/21/24 11:20 Pulse Rate 61 08/21/24 11:20 Respiratory Rate 20 08/21/24 11:20 Blood Pressure 133/77 08/21/24 11:20 Blood Pressure Mean 95 08/21/24 11:20 Pulse Oximetry 96 08/21/24 11:20 Oxygen Delivery Method Room Air 08/21/24 11:20 Vital Signs Temperature 97.6 F 08/21/24 11:20 Pulse Rate 61 08/21/24 11:20 Respiratory Rate 20 08/21/24 11:20 Blood Pressure 133/77 08/21/24 11:20 Pulse Oximetry 96 08/21/24 11:20 Oxygen Delivery Method Room Air 08/21/24 11:20 Temperature 97.5 F L 08/21/24 15:15 Pulse Rate 60 08/21/24 15:15 Respiratory Rate 18 08/21/24 15:15 Blood Pressure 131/73 08/21/24 15:15 Pulse Oximetry 96 08/21/24 15:15 Oxygen Delivery Method Room Air 08/21/24 15:15 Medications Administered Medications: Discontinued Medications Generic Name Dose Route Start Last Admin Trade Name Jose PRN Reason Stop Dose Admin Acetaminophen 1,000 mg 08/21/24 11:40 08/21/24 12:06 Acetaminophen 500 Mg Tablet PO 08/21/24 11:41 1,000 mg ONCE ONE Administration Lidocaine 1 patch 08/21/24 11:39 08/21/24 12:04 Lidocaine 5% Patch TRANSDERMA 08/21/24 11:40 1 patch ONCE ONE Administration Protocol Lidocaine 1 patch 08/21/24 11:39 08/21/24 12:05 Lidocaine 5% Patch TRANSDERMA 08/21/24 11:40 1 patch ONCE ONE Administration Protocol Discharge Plan Discharge Prescriptions: No Action atorvastatin 40 mg tablet 40 mg PO HS magnesium oxide 400 mg (241.3 mg magnesium) Tablet 400 mg PO BIDWM Qty: 60 0RF isosorbide mononitrate 30 mg tablet extended release 24 hr 15 mg PO DAILY metformin 1,000 mg tablet 1,000 mg PO BIDWMEAL glimepiride 4 mg tablet 4 mg PO DAILY amlodipine 5 mg tablet 5 mg PO DAILY bumetanide 2 mg tablet 2 mg PO DAILY metoprolol succinate 50 mg tablet extended release 24 hr 50 mg PO BID Novolin 70/30 U-100 Insulin 100 unit/mL (70-30) suspension 53 unit subcut BID nitroglycerin 0.4 mg tablet, sublingual 0.4 mg sublingual Q5M PRN aspirin 325 mg tablet 325 mg PO DAILY dapagliflozin propanediol [Farxiga] 10 mg tablet 10 mg PO DAILY Follow Up/Referrals: Trace Quijano MD [Primary Care Provider] -
[2024-08-21 11:20] VITALS: BP 133/77; PULSE 61; RESP 20; TEMP 36.4; O2SAT 96; BMI 37.9
--- NOTE | 2024-08-21 11:38 | CRLHL7_ITS ---
For Patients: As a result of the Century Cures Act, medical imaging exams and procedure reports are released immediately into your electronic medical record. You may view this report before your referring provider. If you have questions, please contact your health care provider. INDICATION: FALL FROM STANDING, HEAD INJURY TECHNIQUE: Non-contrast CT of the head is submitted. COMPARISON: CT brain dated 01/21/2022 FINDINGS: Moderate diffuse parenchymal volume loss with commensurate ex vacuo dilatation of the ventricles and sulci. There are nonspecific low attenuation white matter changes consistent with chronic microvascular disease. No sign of mass, hemorrhage, or midline shift. The visualized paranasal sinuses and mastoid air cells are essentially clear. The visualized orbits are grossly unremarkable. No skull fractures. Mild scattered scalp swelling, most pronounced at the vertex. IMPRESSION: No acute intracranial findings. Please note that all CT scans at this facility use dose modulation, iterative reconstruction, and/or weight-based dosing when appropriate to reduce radiation dose to as low as reasonably achievable. Dictated by Ahsan Terrell MD @ 08/21/2024 12:24:13 PM (Electronically Signed)
--- NOTE | 2024-08-21 11:38 | CRLHL7_ITS ---
For Patients: As a result of the 21st Century Cures Act, medical imaging exams and procedure reports are released immediately into your electronic medical record. You may view this report before your referring provider. If you have questions, please contact your health care provider. INDICATION: fall from standing, upper posterior thoracic pain. TECHNIQUE: CT of the chest was performed without intravenous contrast. Please note that all CT scans at this facility use dose modulation, iterative reconstruction, and/or weight-based dosing when appropriate to reduce radiation dose to as low as reasonably achievable. COMPARISON: None. FINDINGS: Medical devices: Left-sided pacemaker with associated leads. Thyroid: 1.1 centimeter hypoattenuating right thyroid nodule (3/14). No further imaging is recommended for incidental thyroid nodules measuring < 1.5 cm in an adult patient <= 35 years of age. Adapted from Consensus Recommendations, J Am Tram Radiol 2015;12:143???150. Lymph nodes: Limited evaluation without IV contrast. No supraclavicular, axillary, mediastinal, or hilar lymphadenopathy. Vasculature: Limited evaluation without IV contrast. Borderline enlarged main pulmonary artery measuring 3.2 centimeter (3/42). Moderate aortic calcification. Heart: Moderate coronary artery calcification. No pericardial effusion. Postsurgical changes from coronary artery bypass grafting. Other mediastinal structures: No significant abnormality. Lung parenchyma: Scattered calcified granulomata. 3 millimeter right lower lobe pulmonary nodule (4/64). Consensus guidelines for single or multiple solid lung nodules less than 6 mm, not applicable if known malignancy or immunocompromise: Low risk: No routine follow-up. High risk without suspicious morphology AND not in upper lobe: Consider CT at 12 months. High risk AND nodule(s) with suspicious morphology OR in upper lobe: Strongly consider CT at 12 months. (Jameel, et al. Radiology 2017) Airways: No significant abnormality. Pleura: No significant abnormality. Chest wall: Postsurgical changes from median sternotomy. Upper abdomen: Cholelithiasis. Calcified splenic granulomata. Mild bilateral renal atrophy. Musculoskeletal: Moderate degenerative changes of the visualized spine. Mildly displaced fracture through the right aspect of the superior endplate of T5 extending posteriorly towards the inferior endplate. IMPRESSION: Mildly displaced fracture through the right aspect of the superior endplate of T5 extending posteriorly towards the inferior endplate. Dedicated CT reformats of the thoracic spine versus MRI may be considered for further evaluation. Please note that all CT scans at this facility use dose modulation, iterative reconstruction, and/or weight-based dosing when appropriate to reduce radiation dose to as low as reasonably achievable. Dictated by Rashard Rey MD @ 08/21/2024 12:50:26 PM (Electronically Signed)
--- NOTE | 2024-08-21 11:38 | CRLHL7_ITS ---
For Patients: As a result of the Century Cures Act, medical imaging exams and procedure reports are released immediately into your electronic medical record. You may view this report before your referring provider. If you have questions, please contact your health care provider. INDICATION: FALL FROM STANDING, HEAD INJURY. fall from standing, upper back and head injury, neck pain. TECHNIQUE: CT of the cervical spine was performed without intravenous contrast. COMPARISON: 01/21/2022. FINDINGS: Alignment: Straightening of the normal cervical lordosis. Vertebrae: Vertebral bodies and posterior elements are intact without acute fracture. Moderate degenerative changes of the visualized spine. Extra-vertebral soft tissues: Normal. Visualized brain: Normal. Additional comment: 1.4 centimeter right thyroid nodule (3/107). No further imaging is recommended for incidental thyroid nodules measuring < 1.5 cm in an adult patient <= 35 years of age. Adapted from Consensus Recommendations, J Am Tram Radiol 2015;12:143???150. IMPRESSION: No acute displaced fracture or malalignment of the cervical spine. Please note that all CT scans at this facility use dose modulation, iterative reconstruction, and/or weight-based dosing when appropriate to reduce radiation dose to as low as reasonably achievable. Dictated by Rashard Rey MD @ 08/21/2024 12:35:03 PM (Electronically Signed)
[2024-08-21] MEDS: LIDOCAINE 5% PATCH 1 PATCH TRANSDERMA ×2 (12:04→12:05)
[2024-08-21] MEDS: ACETAMINOPHEN 500 MG TABLET 1000 MG PO (12:06)
--- NOTE | 2024-08-21 13:02 | CRLHL7_ITS ---
For Patients: As a result of the Century Cures Act, medical imaging exams and procedure reports are released immediately into your electronic medical record. You may view this report before your referring provider. If you have questions, please contact your health care provider. INDICATION: EXTENT OF T5 FRACTURE TECHNIQUE: CT of the thoracic spine was performed without intravenous contrast. COMPARISON: 01/21/2022. FINDINGS: Alignment: Normal. Vertebrae: Moderate degenerative changes of the visualized spine. Flowing anterior vertebral ossification. Mildly displaced fracture is seen through the anterior ossification at T4-5 with extension through the right side of the superior and inferior endplates of T5. Extra-vertebral soft tissues: Normal. Visualized lungs: Please see separately dictated same day CT of the chest. Additional comment: None. IMPRESSION: Mildly displaced fracture is seen through the anterior ossification at T4-5 with extension through the right side of the superior and inferior endplates of T5. This is likely denial management representative of an extension injury in the setting of diffuse idiopathic skeletal hyperostosis. Please note that all CT scans at this facility use dose modulation, iterative reconstruction, and/or weight-based dosing when appropriate to reduce radiation dose to as low as reasonably achievable. Dictated by Rashard Rey MD @ 08/21/2024 2:09:26 PM (Electronically Signed)
[2024-08-21 13:51] VITALS: BP 111/67; PULSE 59; RESP 18; TEMP 36.7; O2SAT 95
[2024-08-21 15:15] VITALS: BP 131/73; PULSE 60; RESP 18; TEMP 36.4; O2SAT 96
== END 2024-08-21 15:48 | disposition short-term general hospital (02) ==
LOC: ED 12:01
PROVIDERS: Emergency Provider Student in an Organized Health Care Education/Training Program; PCP Family Medicine
DX: S22.049A Unspecified fracture of fourth thoracic vertebra, initial encounter for closed fracture (principal); W18.30XA Fall on same level, unspecified, initial encounter
CPT/HCPCS: 70450; 71250; 72125; 72128; 99284; 99285; A9270

== ENCOUNTER 2024-08-21 15:32 | Outpatient (CLI) | payer MEDICARE, BC, SELFPAY | END 2024-08-21 15:33 | disposition home or self-care (01) | LOC: AMB 08-22 10:42 | PROVIDERS: PCP Family Medicine; Visit Provider Family Medicine | DX: S22.049A Unspecified fracture of fourth thoracic vertebra, initial encounter for closed fracture (principal); S22.059A Unspecified fracture of T5-T6 vertebra, initial encounter for closed fracture | CPT/HCPCS: A0425; A0427 ==

== ENCOUNTER 2025-02-18 14:27 | Inpatient (IN) | payer MEDICARE, BC, SELFPAY ==
[2025-02-18] VITALS (25 sets, daily range): BP systolic 121–159; BP diastolic 65–90; PULSE 60–73; RESP 7–29; TEMP 36.6–37; O2SAT 89–97; BMI 37.6; BMI 38.9
--- OUTSIDE RECORDS SUMMARY | 2025-02-18 14:29 | XMS_ITS | Clinical Summary ---
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 1 diabetic pair of shoes for home use. Diagnosis Type 2 Diabetes mellitus. 1 Each 0 08/04/19 12 Active aspirin enteric coated (ECOTRIN) 325 mg tablet Take 1 tablet by mouth once daily with a meal. 0 08/12/19 15 Active medication order composer 1 Capsule two times daily. Eye multivitamin, Focus 0 03/01/20 19 Active blood-glucose meterIndications:D iabetes mellitus with neurological manifestations, uncontrolled Dispense meter, test strips, lancets covered by pt ins. E11.9 NIDDM type II - Test 2 times/day. Reason: low blood sugar and on insulin. Accucheck guide meter 1 Each 12/18/19 21 Active miscellaneous medical supply (Blood Pressure Cuff) miscIndications:Pr imary hypertension As directed. Home blood pressure monitoring for Essential hypertension Diagnosis. Upper arm automatic Cuff. 1 Each 07/08/19 23 Active magnesium oxide (MAG-OX 400) 400 mg tabletIndications: Sick sinus syndrome (HC) Take 1 Tablet (400 mg) by mouth two times daily. 180 Tablet 3 07/13/19 23 Active cholecalciferol, vitamin D3, (VITAMIN D3 ORAL) Take 5,000 Units/day by mouth once daily. 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 For diabetes. 180 Tablet 2 10/29/19 25 Active amLODIPine (NORVASC) 5 mg tabletIndications: Primary hypertension Take 1 Tablet (5 mg) by mouth once daily. 90 Tablet 10/29/19 25 Active atorvastatin (LIPITOR) 40 mg tabletIndications: Coronary artery disease due to lipid rich plaque Take 1 Tablet (40 mg) by mouth at bedtime. FOR CHOLESTEROL 90 Tablet 10/29/19 25 Active dapagliflozin propanediol (FARXIGA) 10 mg tabletIndications: Ischemic cardiomyopathy Take 1 Tablet (10 mg) by mouth once daily. 90 Tablet 10/29/19 25 Active insulin nph-regular (NovoLIN 70/30 U-100 Insulin) 100 unit/mL (70-30) injIndications:Nancy betes mellitus type 2 with neurological manifestations (HC) INJECT 53 UNITS SUBCUTANEOUSly IN THE MORNING BEFORE MEALS and 50 Units IN THE EVENING with SUPPER MEAL. 100 mL 10/29/19 25 Active insulin syringe-needle U-100 (BD Veo Insulin Syringe UF) 1/2 mL 31 gauge x 15/64 syrgIndications:Di abetes mellitus type 2 with neurological manifestations (HC) As directed. 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 200 Each 10/29/19 25 Active metoprolol succinate (TOPROL XL) 50 mg sustained-release tabletIndications: Primary hypertension Take 1 Tablet (50 mg) by mouth two times daily. 180 Tablet 2 10/29/19 25 Active nitroglycerin 0.4 mg sublingual tabletIndications: Atherosclerosis of ak chin coronary artery of ak chin heart without angina pectoris Place 1 Tablet (0.4 mg) under the tongue every 5 minutes if needed for Chest Pain. Use up to 3 doses in 15 minutes. 25 Tablet 10/29/19 25 Active Active Problems Problem Noted Date Diagnosed Date Chronic kidney disease, stage 3b 05/19/2024 COVID-19 virus infection 04/04/2023 Overview (03/03/2024): March 2023: Positive clinic test with symptoms. Treatment with Paxlovid. February 2024: positive Covid-19 with hospitalization for weakness and mild hypoxia. Acute systolic CHF (congestive heart failure) Overview (07/24/2022): June 2022, admitted to [facility] for diuresis. July [...] 09/30/09: to do IM testosterone injections at [facility]? Erectile dysfunction 05/02/2008 Overview (10/13/2009): ON cialis, [...] INITIATIVE ~ Jun 09: stress Cardiolite at [facility] Heart: no ischemia and Ejection fraction of 55% ~ October 2010: Thalium Stress Test: Medium sized ischemic defect involving the anterior, anterolateral, and inferolateral vieira. There is a very small amount of underlying infarction in the inferolateral wall associated with this defect. 2. 24-hour delayed imaging shows complete viability in the small inferolateral infarct zone. Unspecified disease of pericardium 09/20/2006 Overview (07/19/2009): 06/28-3/21/07 around time of coronary artery bypass. Echo on 07/14/06 cleared. Diabetes mellitus with neuro logical manifestations, uncontrolled 06/08/2001 Overview (07/16/2018): Goal for A1c is <8. History of coronary artery disease. March 2013: No diabetic eye disease. [facility]. May 2010: Metformin decreased to 1000 twice daily (from 1500 am and 1000pm) due to insurance only covering 1000 twice daily. March 2013: Continue levemir, if cost goes up next year with insurance donut hole', consider changing to 70/30 Nph/Regular insulin if [...] Coronary atherosclerosis of unspecified type of vessel, ak chin or graft 05/25/2005 09/20/2006 Contact dermatitis and other eczema due to plants (except food) 11/25/2004 09/20/2006 Chest pain, unspecified 10/11/200411/2005 Sebaceous cyst 07/09/2004 05/25/2005 ROTATOR CUFF SPRAIN 03/16/2001 09/21/19 07 ATHEROSCLEROSIS, CORONARY 02/23/2000 DIABETES 11/25/2004 Overview (11/25/2004): date is when problem was entered Encounters Date Type Department Care Team Description 12/06/2024 Telephone [facility] [address] [place] [address] Trace Quijano MD Refill Request from Last 3 Months Immunizations Immunization Administration Dates Next Due AMB Influenza, IIV3 (Age >=3 years) Preserve Free (Flu Clinic Only) 01/20/2009 AMB Influenza, IIV3 (Age >=3 years)(Flu Clinic Only) 02/02/2010 COVID-19 vaccine ([place] [employer] 30mcg/0.3mL) PF, MDV 09/21/2021,06/30/2020,06/09/2020 Influenza, High-dose Inactivated 12/07/2015,02/15,02/07/2014 Influenza, IIV3 [...] on file Legal Sex Male 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 Gender Identity Not on file Sexual Orientation Not on file Occupation Industry Job Start Date Job End Date retired Not on file Not on file Not on file Obstetrics History Last Filed Vital Signs Vital Sign Reading Time Taken Comments Blood Pressure 128/73 10/28/2024 10:11 AM CDT Pulse 64 10/28/2024 10:11 AM CDT Temperature 37.2 C (98.9 F) 04/03/2023 9:11 AM SEARCH PLANNER Respiratory Rate 18 06/14/2024 9:33 AM SEARCH PLANNER Oxygen Saturation 96% 10/28/2024 10:11 AM CDT Inhaled Oxygen Concentration - - Weight 131 kg (288 lb 14.4 oz) 10/28/2024 10:11 AM CDT Height 185.4 cm (6' 1) 06/14/2024 9:33 AM SEARCH PLANNER Body Mass Index 38.12 06/14/2024 9:33 AM SEARCH PLANNER Plan of Treatment Upcoming Encounters Date Type Department Care Team (Late st Contact Info) Description 02/28/2025 Procedure Only [facility] [address] [place] [address] 02/28/2025 10:20 AM SEARCH PLANNER Office Visit [facility] [address] [place] [address] Trace Quijano MD [address] [place] [address] 03/18/2025 8:30 AM SEARCH PLANNER Office Visit [facility] [address] [facility] [address] [place] [address] Pina Renteria, ARUNA [address] [facility] [address] [place], [place] [id number] Health Maintenance Due Date Last Done Comments Zoster (shingles) series for age 50+ (1 of 2) 1989 RSV vaccine for adults or (1 - 1-dose 75+ series) 2014 Medicare Wellness for age 65+ 01/17/2024 01/16/2023, 01/03/2022, 12/07/2020, Additional history exists Influenza Vaccine (#1) 2024 , 03/18/2021, 03/30/2020, Additional history exists BMI (ht and wt on same day) for age 18+ 06/14/2025 06/14/2024, 03/06/2023, 01/16/2023, Additional history exists Depression screening for age 12+ 06/14/2025 06/14/2024, 06/10/2024, 01/18/2023, Additional history exists Tetanus booster 01/22/2032 01/21/2022, 02/16, 04/17/1999 Pneumococcal series for age 50+ Completed 12/07/2015, 07/22/2013, 01/10/2003 Hepatitis B series for 19+ Aged Out N o longer eligible based on patient's age to complete this topic Insurance MEDICARE PB ONLY MEDICARE PART B HB ONLY MEDICARE PART A HB ONLY [facility] Advance Directives * Full Code (Latest [...] 6:48 AM 11/05/2010 2:40 PM Care Teams Open Hearth Laborer Relationship Specialty Start Date End Date Trace Quijano MD PCP - General 05/30/08 Glenn Birch MD [address] [place] [address] [place] [address] Cardiology Cardiovascular Disease 01/08/13 Charlotte Ricks MD [address] [place] [id number] Nephrology Nephrology 02/06/17 Malachi Gonzales MD [address] [place] [id number] Ophthalmology Surgery - Ophthalmology 08/03/20 Walt Garrido DPM [address] [facility] [place] [address] PODIATRY Surgery - Podiatric 12/07/20 Sky Metcalf MD [address] [place] [address] Sleep Medicine 12/07/20 Paolo Marcial MD [address] [place] [address] Consulting Physician Cardiology - Electrophysiology 08/18/22
--- NOTE | 2025-02-18 14:50 | CRLHL7_ITS ---
For Patients: As a result of the Century Cures Act, medical imaging exams and procedure reports are released immediately into your electronic medical record. You may view this report before your referring provider. If you have questions, please contact your health care provider. Indication: Fall, left hip pain Technique: Three views of the pelvis and left hip Comparison: None. Findings/Impression: There is an acute, comminuted, impacted subcapital fracture of the left femoral neck with varus angulation. The hips, pubic symphysis, and sacroiliac joints are congruent with mild degenerative changes. Vascular calcifications are present. Dictated by Sneha Mendosa MD @ 02/18/2025 4:11:28 PM (Electronically Signed)
--- NOTE | 2025-02-18 14:50 | ED.GENADULT ---
HPI - General Adult General Chief complaint: Hip Injury/Pain Stated complaint: Fell Time Seen by Provider: 02/18/25 14:50 History of Present Illness HPI narrative: 85-year-old gentleman with history of elevated BMI, sleep apnea, insulin-dependent diabetes, chronic kidney disease, coronary artery disease, pacemaker is brought to the ER today by EMS from home for evaluation of injuries after a fall. In particular he is having marked left hip pain, also left elbow pain. History from the patient was that he was in his pole barn a couple of hours prior to arrival and was trying to move a trailer or piece of equipment around. He was pulling on it when the trailer abruptly gave way and then he fell backwards and lost his balance. He landed directly on his left side, on his left hip and elbow. He did not hit his head. He had tremendous left hip pain and was not able to get up. Also left elbow pain was able to roll over onto his right side and was laying there. His had gone. He was shouting for help and eventually she came home and heard him. She came and found him on the ground inside the pull burn and called EMS to get him up. He received through IV by paramedics but is still having left hip pain. He is also noting that he has low back pain but he thinks that is because he was on the ground and holding his neck in a funny way to keep it off the ground. He does not have any chest pain. No shortness of breath. No abdominal pain. No upper or lower back pain. No pain in his right arm right leg. No numbness or tingling in his left arm or left leg. He is not anticoagulated. He was healthy and well prior to falling. No recent fever or illness. Related Data Home Medications ?Medication ?Instructions ?Recorded ?Confirmed glimepiride 4 mg tablet 4 mg PO DAILY 01/21/22 02/18/25 isosorbide mononitrate 30 mg 15 mg PO DAILY 01/21/22 02/18/25 tablet,extended release 24 hr metformin 1,000 mg tablet 1,000 mg PO BIDWMEAL 01/21/22 02/18/25 amlodipine 5 mg tablet 5 mg PO DAILY 06/21/22 02/18/25 atorvastatin 40 mg tablet 40 mg PO HS cholesterol 03/22/23 11/04/25 insulin human U-100 NPH-regulr 53 unit subcut BID 02/24/24 02/18/25 70-30 mix 100 unit/mL subcutaneous susp (Novolin 70/30 U-100 Insulin) metoprolol succinate 50 mg 50 mg PO BID 02/24/24 02/18/25 tablet,extended release 24 hr aspirin 325 mg tablet 325 mg PO DAILY 02/25/24 02/18/25 dapagliflozin propanediol 10 mg 10 mg PO DAILY 02/25/24 02/18/25 tablet (Farxiga) nitroglycerin 0.4 mg sublingual 0.4 mg sublingual Q5M PRN 02/25/24 02/18/25 tablet Previous Rx's ?Medication ?Instructions ?Recorded magnesium oxide 400 mg (241.3 mg 400 mg PO BIDWM #60 tabs 07/07/22 magnesium) tablet Allergies Allergy/AdvReac Type Severity Reaction Status Date / Time No Known Drug Allergies Allergy Verified 02/18/25 14:40 [facility] Medical History (Updated 03/04/24 @ 00:01 by Carline Acuna) HFrEF (heart failure with reduced ejection fraction) ?I50.20 - Unspecified systolic (congestive) heart failure (ICD-10) Pacemaker ?Z95.0 - Presence of cardiac pacemaker (ICD-10) Macular degeneration ?H35.30 - Unspecified macular degeneration (ICD-10) GERMÁN on CPAP ?G47.33 - Obstructive sleep apnea (adult) (pediatric) (ICD-10) ?Z99.89 - Dependence on other enabling machines and devices (ICD-10) Prostate cancer ?C61 - Malignant neoplasm of prostate (ICD-10) Insulin dependent diabetes mellitus CKD (chronic kidney disease) ?N18.9 - Chronic kidney disease, unspecified (ICD-10) CAD (coronary artery disease) ?I25.10 - Atherosclerotic heart disease of [place] coronary artery without angina pectoris (ICD-10) Surgical History S/P CABG x 4 ?Z95.1 - Presence of aortocoronary bypass graft (ICD-10) H/O cataract extraction ?Z98.49 - Cataract extraction status, unspecified eye (ICD-10) S/P placement of cardiac pacemaker ?Z95.0 - Presence of cardiac pacemaker (ICD-10) H/O radical prostatectomy ?Z90.79 - Acquired absence of other genital organ(s) (ICD-10) Social History (Updated 02/24/24 @ 21:16 by Anamika Washburn MD) Narrative: Lives with [place] near [place]; Riddhi would be MDM if needed. 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 Two adult daughters in the area. Quit smoking in the 1980s, no alcohol use. Requests Full Code status. What is your current living situation?: I presently have a place to live Problems where you live: no known problems Problems where you live details: na In the past 12 months, utilities in danger of being shut off: no In past 12 months, lack of transportation kept you from medical appts, meetings, work, or getting things needed for daily living: no In the past 12 mos, have been you worried that your food would run out before you had money to buy more?: never true In the past 12 mos, the food you bought just didn't last and you didn't have money to buy more?: never true Highest level of school completed/degree received: high school graduate Smoking Status: Former smoker Do you use any of these nicotine containing products: None Second hand tobacco smoke exposure: No How often do you have a drink containing alcohol: never How often do you have six or more drinks on one occasion: Never AUDIT-C Alcohol total score: 0 Non-prescribed substance use: denies use Caffeine: Yes How often does anyone, including family, friends and others, physically hurt you: never How often does anyone, including family, friends and others, insult or talk down to you: never How often does anyone, including family, friends and others, threaten you with harm: never How often does anyone, including family, friends and others, scream or curse at you: never service: No Exam Narrative: Exam Narrative: Primary Survey: A- patent. Speaking clearly. Phonation normal. No stridor. B- breathing easily. Lung sounds clear and equal. Oxygen saturation normal on room air C- no active bleeding. Blood pressure stable. Symmetric pulses and cap refill in 4 extremities. D- alert and oriented x3. GCS 15. No focal deficits. Constitutional: Appears well-developed and well-nourished. Robust and heavy set. Alert. Very uncomfortable, but Conversant. Hard of hearing. Non toxic. HENT: Head: Atraumatic. No depressed skull fracture, Raccoon Eyes, Tong's sign, or hemotympanum. Face normal. TMs normal Nose: Nose normal. Mouth/Throat: Oral mucosa is clear and moist. no trismus. Pharynx normal. Tonsils symmetric. No tonsillar enlargement, erythema, or exudate. Eyes: Conjunctivae normal. EOM normal. Pupils equal, round, and reactive to light. No scleral icterus. Neck: Normal range of motion. Neck supple. No tracheal deviation present. No definite posterior midline tenderness but with complaint of neck pain and associated severe left hip pain, cannot be cleared by nexus because of distracting orthopedic injury. Cardiovascular: Normal rate, regular rhythm. No gallop. No friction rub. No murmur heard. Symmetric radial artery pulses Pulmonary/Chest: Effort normal. No stridor. No respiratory distress. No wheezes. No rales. No rhonchi . No tenderness. Abdominal: Soft. Bowel sounds normal. No distension. No mass. No tenderness. No rebound. No guarding. Musculoskeletal: Patient rolled onto his right side for back exam. No bruising. No midline tenderness or step-off of the T-spine or L-spine. RUE: Normal range of motion. No tenderness. No deformity LUE: Clavicle, shoulder, humeral shaft are normal. He is complaining of sharp left elbow pain but is able to fully extend and flex to almost 90?. No definite elbow swelling or bruising. No laceration. Forearm, wrist, hand are nontender. RLE: Normal range of motion. No edema. No tenderness. No deformity LLE: Complaining of marked hip pain and is tender over the hip. No definite bruising or deformity, but he does seem to be slightly foreshortened at the left heel compared to the right. He is not able flex or extend his left hip due to pain. Femoral shaft, quad, hamstring are nontender. Distal femur nontender. Knee, patella are nontender. Tibia and fibula nontender. Ankle nontender. Foot is nontender. Intact toe wiggling. Intact distal sensory function on the dorsal 1st webspace, sole of the foot, medial and lateral foot. No open wounds or laceration. Neurological: Alert and oriented to person, place, and time. Normal strength. CN II-VII intact. No sensory deficit. GCS eye subscore is 4. GCS verbal subscore is 5. GCS motor subscore is 6. Normal coordination . Not able to assess gait because of hip pain Skin: Skin is warm and dry. No rash noted. No pallor. Normal capillary refill. Psychiatric: Normal mood. Normal affect, allowing for pain. Const: Vital Signs, click to edit/add: Vital Signs - 24 hr 02/18/25 14:40 Temperature 98.6 F Pulse Rate [Pulse Oximeter] 65 Respiratory Rate 18 Blood [facility] 139/79 Pulse Oximetry 91 Oxygen Delivery Me thod Room Air Course Vital Signs Vital signs: Initial Vital Signs Temperature 98.6 F 02/18/25 14:40 Temperature Source Temporal Artery Scan 02/18/25 14:40 Pulse Rate 65 02/18/25 14:40 Respiratory Rate 18 02/18/25 14:40 Blood Pressure 139/79 02/18/25 14:40 Blood Pressure Mean 99 02/18/25 14:40 Pulse Oximetry 91 02/18/25 14:40 Oxygen Delivery Method Room Air 02/18/25 14:40 Vital Signs Temperature 98.6 F 02/18/25 14:40 Pulse Rate 65 02/18/25 14:40 Respiratory Rate 18 02/18/25 14:40 Blood Pressure 139/79 02/18/25 14:40 Pulse Oximetry 91 02/18/25 14:40 Oxygen Delivery Method Room Air 02/18/25 14:40 Temperature 98.6 F 02/18/25 14:40 Pulse Rate 65 02/18/25 14:40 Respiratory Rate 18 02/18/25 14:40 Blood Pressure 139/79 02/18/25 14:40 Pulse Oximetry 91 02/18/25 14:40 Oxygen Delivery Method Room Air 02/18/25 14:40 Medications Administered Medications: Discontinued Medications Generic Name Dose Route Start Last Admin Trade Name Freq PRN Reason Stop Dose Admin Fentanyl 50 mcg 02/18/25 14:50 02/18/25 15:00 Fentanyl 100 Mcg/2 Ml Inj IVP 02/18/25 14:51 50 mcg ONCE ONE Administration Fentanyl 50 mcg 02/18/25 15:11 02/18/25 15:11 Fentanyl 100 Mcg/2 Ml Inj IVP 02/18/25 15:12 50 mcg ONCE ONE Administration Ondansetron HCl 4 mg 02/18/25 14:50 02/18/25 15:27 Ondansetron 2 Mg/Ml Inj IVP 02/18/25 14:51 4 mg ONCE ONE Administration Medical Decision Making MDM Narrative Medical decision making narrative: A 5-year-old gentleman brought to the ER today by EMS from his home. He had a ground level fall in his pole barn today when he was trying to move some farm equipment around. Head CT and C-spine CT are negative. He has no symptoms of spinal cord injury. No pain and no tenderness over the lumbar or thoracic spines. He is not having any chest pain, rib pain, difficulty breathing. Oxygen saturations are in the low 90s on room air after he received 100 mcg of fentanyl per EMS. Chest x-ray is clear. His primary site of pain in his left hip. X-rays of his left hip and pelvis show a mildly angulated subcapital left femoral neck fracture. Discussed with orthopedics. They agree and needs operative fixation and plan is for him to be admitted for pain control and IV hydration overnight with operation tomorrow sometime, possibly 9:30 a.m.. It is difficult to get pain for control for this patient here in the ER and he has required serial doses of fentanyl. I have consulted with Anesthesia and they will come to the ER to evaluate for potential nerve block to get better analgesia in his left hip. He is also having left elbow pain. X-rays are negative for any acute fracture. I have discussed this with the accepting hospitalist. If he has persistent pain when he has re-examination by hospitalist, they will get a CT of his left elbow. At this time will hold off on sending him back to CT because he has significant left hip pain with transfers in and out of bed onto the CT scanner. After he gets his hip block, he would be more comfortable for him to transfer. He was on the ground for a little while before his and daughter came home to help him. We did check kidney function which appears to be at baseline and CK which is minimally elevated to 477. Not a dangerous level to raise risk for acute kidney injury from rhabdomyolysis yet. CBC shows a white count elevated at 13 but no clear infection symptoms. Suspect this may be stress demargination from pain. We will check cath urinalysis to make sure there is no UTI. Results pending at this time this dictation and will be followed by the admitting hospitalist. Hemoglobin is normal. Platelet count normal. He is not anticoagulated. INR is normal. Discussed by hospitalist service. He will be admitted to the medical floor. Inpatient status. Lab Data Labs: Lab Results 02/18/25 Range/Units 16:34 WBC 13.32 H (4.50-11.00) K/uL RBC 4.90 (4.30-5.90) m/uL Hgb 14.4 (13.5-17.5) gm/dL Hct 46.3 (37.0-53.0) % MCV 95 (80-100) fL MCH 29 (26-34) pg MCHC 31 L (32-36) gm/dL RDW Coeff of Sandra 14.7 (11.5-15.5) % Plt Count 140 (140-440) K/uL Neut % (Auto) 83.4 H (42.0-72.0) % Lymph % (Auto) 7.6 L (20-44) % [place] % (Auto) 8.3 (0.0-11.0) % Eos % (Auto) 0.2 (0.0-7.0) % Baso % (Auto) 0.2 (0.0-3.0) % Neut # (Auto) 11.10 H (1.7-7.0) K/uL Lymph # (Auto) 1.00 (0.90-2.90) K/uL [place] # (Auto) 1.10 H (0.00-0.90) K/UL Eos # (Auto) 0.00 (0.00-0.50) K/uL Baso # (Auto) 0.00 (0.00-0.30) K/uL Abs Immat Gran (auto) 0.00 (0.00-0.30) K/uL Imm/Tot Granulo (auto) 0.3 % INR 1.16 H (0.91-1.10) Sodium 141 (135-149) mmol/L Potassium 4.2 (3.6-5.1) mmol/L Chloride 106 (96-114) mmol/L Carbon Dioxide 27 (20-32) mmol/L Anion Gap 8 (7-15) mEq/L BUN 27 (7-30) mg/dL Creatinine 1.2 (0.5-1.5) mg/dL Estimated Creat Clear 49.94 Estimated GFR 59 ml/min Glucose 93 (60-115) mg/dL Lactate 1.6 (0.5-1.9) mmol/L Calcium 8.9 (8.4-10.6) mg/dL Total Creatine Kinase 477 H (54-186) U/L Imaging Data CT scan - head: Attestation: I have reviewed the pertinent imaging results. CT C spine: Attestation: I have reviewed the pertinent imaging results. Radiologist's impression: IMPRESSION: 1. No acute fracture or traumatic malalignment of the cervical spine. Chest x-ray: Attestation: I have reviewed the pertinent imaging results. Radiologist's impression: FINDINGS/IMPRESSION: Moderate cardiomegaly and suggestion of mild pulmonary edema. No large effusion or pneumothorax. Median sternotomy. Left-sided AICD is in place. XR L elbow: Attestation: I have reviewed the pertinent imaging results. Radiologist's impression: Findings/Impression: Bones: Alignment is normal. No fractures or bone lesions. Joint spaces: No elbow joint effusion. Soft tissues: Unremarkable. XR L hip and pelvis: Attestation: I have reviewed the pertinent imaging results. Radiologist's impression: Findings/Impression: There is an acute, comminuted, impacted subcapital fracture of the left femoral neck with varus angulation. The hips, pubic symphysis, and sacroiliac joints are congruent with mild degenerative changes. Vascular calcifications are present. ECG Data Attestation: I personally reviewed and interpreted this ECG as follows: Interpretation: Ventricular paced rhythm Rate 67 [place] interval not calculable Normal QRS axis No ST segment elevation or depression QTC 468, QTC 494 Discharge Plan Discharge Prescriptions: No Action atorvastatin 40 mg tablet 40 mg PO HS magnesium oxide 400 mg (241.3 mg magnesium) Tablet 400 mg PO BIDWM Qty: 60 0RF isosorbide mononitrate 30 mg tablet extended release 24 hr 15 mg PO DAILY metformin 1,000 mg tablet 1,000 mg PO BIDWMEAL glimepiride 4 mg tablet 4 mg PO DAILY amlodipine 5 mg tablet 5 mg PO DAILY metoprolol succinate 50 mg tablet extended release 24 hr 50 mg PO BID Novolin 70/30 U-100 Insulin 100 unit/mL (70-30) suspension 53 unit subcut BID nitroglycerin 0.4 mg tablet, sublingual 0.4 mg sublingual Q5M PRN aspirin 325 mg tablet 325 mg PO DAILY dapagliflozin propanediol [Farxiga] 10 mg tablet 10 mg PO DAILY Follow Up/Referrals: Trace Quijano MD [Primary Care Provider, Family Practice]
--- NOTE | 2025-02-18 15:12 | CRLHL7_ITS ---
For Patients: As a result of the Cures Act, medical imaging exams and procedure reports are released immediately into your electronic medical record. You may view this report before your referring provider. If you have questions, please contact your health care provider. INDICATION: Fall. Head injury. TECHNIQUE: CT of the head without contrast. Coronal and sagittal reformats are included. COMPARISON: Head CT from 08/21/2024. FINDINGS: No acute intracranial hemorrhage. No mass effect or midline shift. No hydrocephalus or extra-axial collections. Patchy white matter hypoattenuation, typical for chronic microvascular ischemic change. Intracranial vascular calcifications. No acute osseous abnormalities. Mastoid air cells and paranasal sinuses are clear. Normal soft tissues. IMPRESSION: IMPRESSION: 1. No acute intracranial abnormalities. Please note that all CT scans at this facility use dose modulation, iterative reconstruction, and/or weight-based dosing when appropriate to reduce radiation dose to as low as reasonably achievable. Dictated by Luiz Hernandez MD @ 02/18/2025 3:58:57 PM (Electronically Signed)
--- NOTE | 2025-02-18 15:12 | CRLHL7_ITS ---
For Patients: As a result of the Century Cures Act, medical imaging exams and procedure reports are released immediately into your electronic medical record. You may view this report before your referring provider. If you have questions, please contact your health care provider. INDICATION: Fall. Neck pain. TECHNIQUE: CT of the cervical spine without contrast. Coronal and sagittal reformats are included. COMPARISON: None. FINDINGS: Fractures and other acute findings: None. Hardware: None. Spinal alignment: Straightening of the typical cervical lordotic curve. Significant cervical spondylosis: Multilevel uncovertebral and facet arthrosis with high-grade neural foraminal stenosis at C3-4 on the right, and [id number] elsewhere. Paraspinal soft tissues and imaged lungs: Multiple bilateral thyroid nodules. IMPRESSION: 1. No acute fracture or traumatic malalignment of the cervical spine. Please note that all CT scans at this facility use dose modulation, iterative reconstruction, and/or weight-based dosing when appropriate to reduce radiation dose to as low as reasonably achievable. Dictated by Luiz Hernandez MD @ 02/18/2025 3:55:28 PM (Electronically Signed)
[2025-02-18] MEDS: ONDANSETRON 2 MG/ML inj 4 MG IVP (15:27)
--- NOTE | 2025-02-18 15:45 | CRLHL7_ITS ---
For Patients: As a result of the Century Cures Act, medical imaging exams and procedure reports are released immediately into your electronic medical record. You may view this report before your referring provider. If you have questions, please contact your health care provider. INDICATION: Fall, chest pain, elbow pain TECHNIQUE: Chest 1 views. COMPARISON: X-ray chest February 2024 FINDINGS/IMPRESSION: Moderate cardiomegaly and suggestion of mild pulmonary edema. No large effusion or pneumothorax. Median sternotomy. Left-sided AICD is in place. Dictated by Carlene Lock MD @ 02/18/2025 4:16:28 PM (Electronically Signed)
--- NOTE | 2025-02-18 15:45 | CRLHL7_ITS ---
For Patients: As a result of the Cures Act, medical imaging exams and procedure reports are released immediately into your electronic medical record. You may view this report before your referring provider. If you have questions, please contact your health care provider. Indication: Injury and pain Technique: Left elbow 2 views Comparison: None Findings/Impression: Bones: Alignment is normal. No fractures or bone lesions. Joint spaces: No elbow joint effusion. Soft tissues: Unremarkable. Dictated by Momo Salazar MD @ 02/18/2025 4:10:26 PM (Electronically Signed)
[2025-02-18 16:44] LABS: Lactate* 1.6 mmol/L (0.5-1.9)
[2025-02-18 16:48] LABS: Hematocrit* 46.3 % (37.0-53.0); Hemoglobin* 14.4 gm/dL (13.5-17.5); Immature Granulocytes Pct Auto 0.3 %; Mean Corpuscular HGB Conc 31 gm/dL (32-36); Mean Corpuscular Hemoglobin 29 pg (26-34); Mean Corpuscular Volume 95 fL (80-100); RDW Coefficient of Variation % 14.7 % (11.5-15.5); Red Blood Count* 4.90 m/uL (4.30-5.90); White Blood Count* 13.32 K/uL (4.50-11.00)
[2025-02-18 16:50] LABS: Immature Granulocytes Abs Auto 0.00 K/uL (0.00-0.30); Lymphocytes Absolute Auto 1.00 K/uL (0.90-2.90); Slide Review Reflex No
[2025-02-18 17:10] LABS: INR 1.16 (0.91-1.10); Prothrombin Time 15.7 Seconds
[2025-02-18 17:34] LABS: Chloride* 106 mmol/L (96-114); Potassium* 4.2 mmol/L (3.6-5.1); Sodium* 141 mmol/L (135-149)
[2025-02-18 17:37] LABS: Anion Gap 8 mEq/L (7-15); Blood Urea Nitrogen* 27 mg/dL (7-30); Calcium* 8.9 mg/dL (8.4-10.6); Carbon Dioxide* 27 mmol/L (20-32); Creatine Kinase* 477 U/L (54-186); Creatinine* 1.2 mg/dL (0.5-1.5); Est. Creatinine Clearance* 49.94; Estimated Glomerular Filt Rate 59 ml/min; Glucose* 93 mg/dL (60-115)
--- NOTE | 2025-02-18 18:19 | P.NB_ITS ---
Nerve Block Nerve Block Time Seen by Provider: 18:00 Date Seen: 02/18/25 Type of block requested by surgeon for post-operative analgesia: ADDIE/LFCN Side: left Time out performed: Yes Verification of patient name: Yes Verification of date of : Yes Site marking: not applicable Name of person performing procedure: Christiano Continuous monitoring Was continuous monitoring of O2 sat, B/P, classroom monitor, recorded every 15 minutes?: Yes Procedure Checklist: sterile prep, needles and gloves Ultrasound guided. Images saved: Yes Medications given in 5ml increments after negative aspiration: Ropivicaine %: 0.5 mL: 25 Needle gauge: 20 Precedex (mcg): 25 Patient tolerated procedure well: Yes Block Charges Block Charge (with Pro Fee): Other Periph Nerve Block Use of Ultrasound Machine for Block: Yes- US Guidance/pain block
[2025-02-18] MEDS: MIDAZOLAM HCL 1 MG/ML inj IVP (18:20)
--- NOTE | 2025-02-18 18:24 | PM.IMHP1 ---
Assessment and Plan Assessment and plan (1) Fall: Problem comment: -ground level mechanical fall prior to 11:00 a.m., 02/18 -resulting in left hip fracture, left elbow pain -CK 477 Status: Acute (2) Hip fracture, left: Problem comment: -x-ray shows acute, comminuted, impacted subcapital fracture of the left femoral neck with varus angulation -ED provider discussed with Orthopedic surgery, plan for surgical repair morning of 02/19 -pain management to include lidocaine patch, scheduled Tylenol, ice, oxycodone and Dilaudid as needed. Oximetry, oxygen as needed. Anesthesia completed a block which patient states lasted less than 1 hour for pain control. Will check Mag level and give IV Mag if appropriate -bedrest, repositioning, SCDs for VTE PPX, holding aspirin -NPO at midnight, IVF monitoring for fluid overload -orthopedic surgery consult Status: Acute (3) Elbow pain: Problem comment: -x-ray without acute fracture -recommend CT when able to tolerate -pain management, sling if tolerated Status: Acute (4) HFrEF (heart failure with reduced ejection fraction): Problem comment: - diastolic dysfunction, sees Cardiology as outpatient - continue Metoprolol; holding Dapagliflozin and Imdur preoperatively. Pharmacy to confirm if he still on Bumex - CXR shows moderate cardiomegaly and mild pulmonary edema - monitor for fluid overload perioperatively, will hold off on IVF until NPO - last TTE 11/2022: 1. Technically challenging echocardiogram. 2. Normal left ventricular chamber size. Abnormal ventricular septal motion due to pacing. 3. Calculated left ventricular ejection fraction (modified Garcia technique) is 50 %. 4. Mild concentrically increased left ventricular wall thickness. 5. Mild mitral valve regurgitation. 6. Estimated right ventricular systolic pressure is 38 mmHg. 7. The EF has improved compared to the previous echo. Estimated EF: 50-55% Normal left ventricular chamber size. Mild concentrically increased left ventricular wall thickness. Low-normal left ventricular systolic function. Calculated left ventricular ejection fraction (modified Garcia technique) is 50 %. Abnormal ventricular septal motion due to pacing. Grade 2 left ventricular diastolic dysfunction consistent with moderately increased left ventricular filling pressure. Status: Chronic (5) GERMÁN on CPAP: Problem comment: - family will bring in CPAP tomorrow - pulmonary hygiene perioperatively, incentive spirometry Status: Chronic (6) Insulin dependent diabetes mellitus: Problem comment: - last A1C 6.9, October 2024 - on Metformin, Glimepiride, and BID 70/30 (53 in am, 30-50 in pm) - holding perioperatively while NPO - glucose checks ACHS, insulin sliding scale Status: Chronic (7) CKD (chronic kidney disease): Problem comment: - baseline creatinine 1.6-1.7, CKD stage IIIA Status: Chronic (8) Hypertension: Problem comment: -continue metoprolol and amlodipine Status: Acute (9) Hypercholesterolemia: Problem comment: -continue statin Status: Acute (10) Pacemaker: Problem comment: -last interrogation October 2024 Status: Acute Total Time Spent Total Time Spent: Today I spent 75 minutes seeing the patient, reviewing Expanse and EPIC notes/diagnostics, discussing the care plan with our care time that includes social work, PT/OT, pharmacy, RT, fpc and documenting my impressions and plan in the medical record. Hospitalist- H&P: HPI History of Present Illness Date Seen: 02/18/25 Chief complaint: Fell Narrative: Ramses Teran is a 85 year old male past medical history significant for hypertension, hyperlipidemia, insulin-dependent diabetes with neuropathy, CKD stage 3, CAD, presence of permanent cardiac pacemaker, CHF, esophageal dysphagia, GERMÁN on CPAP is admitted to the medical floor from the ED with left hip fracture after a fall. Patient is seen with and family at bedside. Reports falling in the barn sometime prior to 11:00 a.m. this morning. Was lying on the barn 4 until family found him. CK in the ED is 477. Continues to have moderate left hip pain despite IV fentanyl and a block completed by Anesthesia. Continues to complain of left elbow pain. X-ray in the ED is unremarkable but would benefit from a CT if able to tolerate lying flat for this. Patient denies headache or dizziness. Denies chest pain or shortness of breath. No recent nausea vomiting or change in stools. No UTI symptoms. PCP is Dr. Quijano. Quit smoking in 1986. Denies alcohol use. No previous anesthesia complications. Denies personal or family history of bleeding disorders. Reviewed EKG, CXR, labs, EMR including PCP documentation, appropriate for planned surgical procedure. Review of Systems Narrative: REVIEW OF SYSTEMS: Complete review of systems performed and negative unless otherwise stated in HPI or below. Medical Decision Making Medical Decision Making Code Status: Full code Has patient completed a Health Care Directive: Yes PFSH PFS Medical History Diabetic neuropathy ?E11.40 - Type 2 diabetes mellitus with diabetic neuropathy, unspecified (ICD-10) Hypercholesterolemia ?E78.00 - Pure hypercholesterolemia, unspecified (ICD-10) Hypertension ?I10 - Essential (primary) hypertension (ICD-10) HFrEF (heart failure with reduced ejection fraction) ?I50.20 - Unspecified systolic (congestive) heart failure (ICD-10) Pacemaker ?Z95.0 - Presence of cardiac pacemaker (ICD-10) Macular degeneration ?H35.30 - Unspecified macular degeneration (ICD-10) GERMÁN on CPAP ?G47.33 - Obstructive sleep apnea (adult) (pediatric) (ICD-10) ?Z99.89 - Dependence on other enabling machines and devices (ICD-10) Prostate cancer ?C61 - Malignant neoplasm of prostate (ICD-10) Insulin dependent diabetes mellitus CKD (chronic kidney disease) ?N18.9 - Chronic kidney disease, unspecified (ICD-10) CAD (coronary artery disease) ?I25.10 - Atherosclerotic heart disease of [place] coronary artery without angina pectoris (ICD-10) Surgical History S/P CABG x 4 ?Z95.1 - Presence of aortocoronary bypass graft (ICD-10) H/O cataract extraction ?Z98.49 - Cataract extraction status, unspecified eye (ICD-10) S/P placement of cardiac pacemaker ?Z95.0 - Presence of cardiac pacemaker (ICD-10) H/O radical prostatectomy ?Z90.79 - Acquired absence of other genital organ(s) (ICD-10) Social History Narrative: Lives with [place] near [place]; Riddhi would be MDM if needed. 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 Two adult daughters in the area. Quit smoking in the 1980s, no alcohol use. Requests Full Code status. What is your current living situation?: I presently have a place to live Problems where you live: no known problems Problems where you live details: na In the past 12 months, utilities in danger of being shut off: no In past 12 months, lack of transportation kept you from medical appts, meetings, work, or getting things needed for daily living: no In the past 12 mos, have been you worried that your food would run out before you had money to buy more?: never true In the past 12 mos, the food you bought just didn't last and you didn't have money to buy more?: never true Highest level of school completed/degree received: high school graduate Smoking Status: Former smoker Do you use any of these nicotine containing products: None Second hand tobacco smoke exposure: No How often do you have a drink containing alcohol: never How often do you have six or more drinks on one occasion: Never AUDIT-C Alcohol total score: 0 Non-prescribed substance use: denies use Caffeine: Yes How often does anyone, including family, friends and others, physically hurt you: never How often does anyone, including family, friends and others, insult or talk down to you: never How often does anyone, including family, friends and others, threaten you with harm: never How often does anyone, including family, friends and others, scream or curse at you: never service: No Meds Home Medications and Allergies Home Medications ?Medication ?Instructions ?Recorded ?Confirmed ?Type glimepiride 4 mg tablet 4 mg PO DAILY 01/21/22 02/18/25 History isosorbide mononitrate 30 mg 15 mg PO DAILY 01/21/22 02/18/25 History tablet,extended release 24 hr metformin 1,000 mg tablet 1,000 mg PO BIDWMEAL 01/21/22 02/18/25 History amlodipine 5 mg tablet 5 mg PO DAILY 06/21/22 02/18/25 History atorvastatin 40 mg tablet 40 mg PO HS cholesterol 07/06/22 02/18/25 History magnesium oxide 400 mg (241.3 mg 400 mg PO BIDWM #60 tabs 07/07/22 02/18/25 Rx magnesium) tablet insulin human U-100 NPH-regulr 53 unit subcut BID 02/24/24 02/18/25 History 70-30 mix 100 unit/mL subcutaneous susp (Novolin 70/30 U-100 Insulin) metoprolol succinate 50 mg 50 mg PO BID 02/24/24 02/18/25 History tablet,extended release 24 hr aspirin 325 mg tablet 325 mg PO DAILY 02/25/24 02/18/25 History dapagliflozin propanediol 10 mg 10 mg PO DAILY 02/25/24 02/18/25 History tablet (Farxiga) nitroglycerin 0.4 mg sublingual 0.4 mg sublingual Q5M PRN 02/25/24 02/18/25 History tablet Allergies Allergy/AdvReac Type Severity Reaction Status Date / Time No Known Drug Allergies Allergy Verified 02/18/25 14:40 Exam Narrative: Exam Narrative: PHYSICAL EXAM General: Pleasant, appropriately conversant, joking with staff, but is uncomfortable HEENT: Normocephalic, atraumatic, sclera white, EOMI, oral mucosa moist Cardiovascular: RRR, S1S2. No pitting edema Pulmonary: CTA bilaterally without rhonchi, rales, expiratory wheezes. No dyspnea on 1 L NC Abdominal: Soft, nondistended, NTTP Neurological: Alert, answering questions appropriately, cranial nerves intact, no focal findings Extremities: LLE shortened, externally rotated. Checking pulses with Doppler. Left elbow with mild swelling, tenderness on palpation anteromedially, pain with AROM Skin: Warm, dry. Const: Vital Signs, click to edit/add: Vital Signs - 24 hr 02/18/25 14:40 Temperature 98.6 F Pulse Rate [Pulse Oximeter] 65 Respiratory Rate 18 Blood Pressure [Ri ght Upper Arm] 139/79 Pulse Oximetry 91 Oxygen Delivery Me thod Room Air Hospitalist - H&P: Result Labs Labs: Short CBC 02/18/25 Range/Units 16:34 WBC 13.32 H (4.50-11.00) K/uL Hgb 14.4 (13.5-17.5) gm/dL Hct 46.3 (37.0-53.0) % Plt Count 140 (140-440) K/uL BMP 02/18/25 16:34 Sodium 141 Potassium 4.2 Chloride 106 Carbon Dioxide 27 BUN 27 Creatinine 1.2 Glucose 93 Calcium 8.9 Cardiac Enzymes 02/18/25 Range/Units 16:34 Total Creatine Kinase 477 H (54-186) U/L ECG Attestation: I personally reviewed and interpreted this ECG as follows: Interpretation: EKG shows ventricular paced rhythm, rate 67 Imaging Elbow x-ray: Attestation: I have reviewed the pertinent imaging results. Radiologist's impression: Findings/Impression: Bones: Alignment is normal. No fractures or bone lesions. Joint spaces: No elbow joint effusion. Soft tissues: Unremarkable. Chest x-ray: Attestation: I have reviewed the pertinent imaging results. Radiologist's impression: Moderate cardiomegaly and suggestion of mild pulmonary edema. No large effusion or pneumothorax. Median sternotomy. Left-sided AICD is in place. CT scan - head: Attestation: I have reviewed the pertinent imaging results. Radiologist's impression: No acute intracranial hemorrhage. No mass effect or midline shift. No hydrocephalus or extra-axial collections. Patchy white matter hypoattenuation, typical for chronic microvascular ischemic change. Intracranial vascular calcifications. No acute osseous abnormalities. Mastoid air cells and paranasal sinuses are clear. Normal soft tissues. IMPRESSION: IMPRESSION: 1. No acute intracranial abnormalities. C-spine CT: Attestation: I have reviewed the pertinent imaging results. Radiologist's impression: Fractures and other acute findings: None. Hardware: None. Spinal alignment: Straightening of the typical cervical lordotic curve. Significant cervical spondylosis: Multilevel uncovertebral and facet arthrosis with high-grade neural foraminal stenosis at C3-4 on the right, and [id number] elsewhere. Paraspinal soft tissues and imaged lungs: Multiple bilateral thyroid nodules. IMPRESSION: 1. No acute fracture or traumatic malalignment of the cervical spine. Hip x-ray: Attestation: I have reviewed the pertinent imaging results. Radiologist's impression: There is an acute, comminuted, impacted subcapital fracture of the left femoral neck with varus angulation. The hips, pubic symphysis, and sacroiliac joints are congruent with mild degenerative changes. Vascular calcifications are present.
--- NOTE | 2025-02-18 19:51 | CRLHL7_ITS ---
For Patients: As a result of the Century Cures Act, medical imaging exams and procedure reports are released immediately into your electronic medical record. You may view this report before your referring provider. If you have questions, please contact your health care provider. EXAM: CT OF THE LEFT ELBOW, WITHOUT CONTRAST CLINICAL INDICATION: Elbow pain following fall. COMPARISON STUDIES: 02/18/2025 radiographs. TECHNICAL: Non-contrast CT of the elbow with axial images. Sagittal oblique and coronal oblique reformatted images were created. FINDINGS: OSSEOUS STRUCTURES: Humerus: No fracture. Benign bone island in the condylar region centrally. Radius: There is a subtle impaction fracture of the radial head neck junction with slight cortical buckling. No discrete fracture lucency is evident. Ulna: No fracture. ELBOW JOINT: Joint Fluid: Small elbow joint effusion. No loose body. Joint Space: Mild hypertrophic change without joint space narrowing. Alignment: No subluxation or dislocation. SOFT TISSUES: Dorsal subcutaneous edema in the elbow and forearm. No hematoma. MUSCLES AND TENDONS: No intramuscular hematoma. No muscle atrophy. No retracted tendon tear. IMPRESSION: 1. Subtle impaction fracture of the radial head neck junction. No fracture lucency is evident. 2. Small elbow joint effusion. 3. Mild hypertrophic changes in the elbow. 4. Dorsal subcutaneous edema without hematoma. Please note that all CT scans at this facility use dose modulation, iterative reconstruction, and/or weight-based dosing when appropriate to reduce radiation dose to as low as reasonably achievable. Dictated by Monroe Brady MD @ 02/19/2025 7:37:49 AM (Electronically Signed)
[2025-02-18] MEDS: SODIUM CHLORIDE 0.9 % (FLUSH) 10 ML SYRINGE 5 ML IVF ×2 (20:36→21:11)
[2025-02-18] MEDS: ACETAMINOPHEN 325 MG TABLET 1000 MG PO (20:43)
[2025-02-18] MEDS: LIDOCAINE 5% PATCH 1 PATCH TRANSDERMA (20:45)
[2025-02-18] MEDS: ATORVASTATIN CALCIUM 40 MG TABLET PO (21:10)
[2025-02-18] MEDS: METOPROLOL SUCCINATE (XL) 50 MG TAB PO (21:10)
[2025-02-18 23:00] LABS: Appearance Urine Clear (Clear)
[2025-02-18] MEDS: MAGNESIUM SULF 1 G/100 ML 1 GM/100 ML PIGGYBACK IVPB (23:35)
[2025-02-19] VITALS (22 sets, daily range): BP systolic 139–179; BP diastolic 67–116; PULSE 61–84; RESP 12–19; TEMP 36.3–37.2; O2SAT 90–100
[2025-02-19] MEDS: ACETAMINOPHEN 500 MG TABLET 1000 MG PO ×3 (02:56→21:44)
[2025-02-19] MEDS: SODIUM CHLORIDE 0.9 % (FLUSH) 10 ML SYRINGE 5 ML IVF ×2 (04:43→21:44)
[2025-02-19 06:40] LABS: Hematocrit* 43.7 % (37.0-53.0); Hemoglobin* 13.7 gm/dL (13.5-17.5); Mean Corpuscular HGB Conc 31 gm/dL (32-36); Mean Corpuscular Hemoglobin 30 pg (26-34); Mean Corpuscular Volume 95 fL (80-100); Red Blood Count* 4.60 m/uL (4.30-5.90); White Blood Count* 10.32 K/uL (4.50-11.00)
[2025-02-19 06:44] LABS: Slide Review Reflex No
[2025-02-19 06:46] LABS: Chloride* 106 mmol/L (96-114); Potassium* 4.6 mmol/L (3.6-5.1); Sodium* 137 mmol/L (135-149)
[2025-02-19 06:49] LABS: Anion Gap 7 mEq/L (7-15); Blood Urea Nitrogen* 28 mg/dL (7-30); Calcium* 8.4 mg/dL (8.4-10.6); Carbon Dioxide* 24 mmol/L (20-32); Creatine Kinase* 693 U/L (54-186); Creatinine* 1.2 mg/dL (0.5-1.5); Est. Creatinine Clearance* 49.94; Estimated Glomerular Filt Rate 59 ml/min; Glucose* 186 mg/dL (60-115)
--- NOTE | 2025-02-19 07:50 | PC.NURSE ---
End of shift note [id number]: Pt noted to be A&Ox4 though [place] at baseline. He is on bedrest at this time and has been NPO since midnight. Pt repositioned as tolerated due to having severe pain to L hip with movement. PRN pain medications given throughout the shift- see EMAR. Pt has been afebrile and on O2 2 LPM via NC throughout the shift. CMS to LUE and LLE intact with sling worn to LUE per order. SCDs worn throughout the shift. Gan catheter in place. Pt denies nausea with no vomiting noted. Bed alarm on for safety and call light within reach.
--- NOTE | 2025-02-19 09:35 | PM.ORCN ---
History of Present Illness HPI Date Seen: 02/19/25 Requesting physician: Leatha Mata Chief complaint: Left hip pain Narrative: Ramses is an 85-year-old male with past medical history significant for sleep apnea, insulin-dependent diabetes, chronic kidney disease, coronary artery disease, and a pacemaker. He was brought to the emergency department yesterday after sustaining a ground level fall and injuring his left hip and elbow. 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 Following injury developed significant left hip and elbow pain and was unable to ambulate. She was subsequent brought to the emergency department via EMS. X-rays were obtained which revealed a displaced left hip femoral neck fracture. X-rays of the elbow were negative for fracture, however, CT scan revealed a subtle nondisplaced radial neck fracture. Currently, patient complains of anterior left hip and groin pain as well as pain in the deep anterior aspect of his left elbow. He states that pain is adequately controlled with pain medications. [facility] Medical History Diabetic neuropathy ?E11.40 - Type 2 diabetes mellitus with diabetic neuropathy, unspecified (ICD-10) Hypercholesterolemia ?E78.00 - Pure hypercholesterolemia, unspecified (ICD-10) Hypertension ?I10 - Essential (primary) hypertension (ICD-10) HFrEF (heart failure with reduced ejection fraction) ?I50.20 - Unspecified systolic (congestive) heart failure (ICD-10) Pacemaker ?Z95.0 - Presence of cardiac pacemaker (ICD-10) Macular degeneration ?H35.30 - Unspecified macular degeneration (ICD-10) GERMÁN on CPAP ?G47.33 - Obstructive sleep apnea (adult) (pediatric) (ICD-10) ?Z99.89 - Dependence on other enabling machines and devices (ICD-10) Prostate cancer ?C61 - Malignant neoplasm of prostate (ICD-10) Insulin dependent diabetes mellitus CKD (chronic kidney disease) ?N18.9 - Chronic kidney disease, unspecified (ICD-10) CAD (coronary artery disease) ?I25.10 - Atherosclerotic heart disease of [place] coronary artery without angina pectoris (ICD-10) Surgical History S/P CABG x 4 ?Z95.1 - Presence of aortocoronary bypass graft (ICD-10) H/O cataract extraction ?Z98.49 - Cataract extraction status, unspecified eye (ICD-10) S/P placement of cardiac pacemaker ?Z95.0 - Presence of cardiac pacemaker (ICD-10) H/O radical prostatectomy ?Z90.79 - Acquired absence of other genital organ(s) (ICD-10) Social History Narrative: [place] with [place] near [place]; Riddhi would be MDM if needed. 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 Two adult daughters in the area. Quit smoking in the 1980s, no alcohol use. Requests Full Code status. What is your current living situation?: I presently have a place to live Problems where you live: no known problems Problems where you live details: N/A In the past 12 months, utilities in danger of being shut off: no In past 12 months, lack of transportation kept you from medical appts, meetings, work, or getting things needed for daily living: no In the past 12 mos, have been you worried that your food would run out before you had money to buy more?: never true In the past 12 mos, the food you bought just didn't last and you didn't have money to buy more?: never true Highest level of school completed/degree received: high school graduate Smoking Status: Former smoker Do you use any of these nicotine containing products: None Second hand tobacco smoke exposure: No How often do you have a drink containing alcohol: never How often do you have six or more drinks on one occasion: Never AUDIT-C Alcohol total score: 0 Non-prescribed substance use: denies use Caffeine: Yes How often does anyone, including family, friends and others, physically hurt you: never How often does anyone, including family, friends and others, insult or talk down to you: never How often does anyone, including family, friends and others, threaten you with harm: never How often does anyone, including family, friends and others, scream or curse at you: never service: No Meds Home Medications and Allergies Home Medications ?Medication ?Instructions ?Recorded ?Confirmed ?Type glimepiride 4 mg tablet 4 mg PO DAILY 01/21/22 02/18/25 History isosorbide mononitrate 30 mg 15 mg PO DAILY 01/21/22 02/18/25 History tablet,extended release 24 hr metformin 1,000 mg tablet 1,000 mg PO BIDWMEAL 01/21/22 02/18/25 History amlodipine 5 mg tablet 5 mg PO DAILY 06/21/22 02/18/25 History atorvastatin 40 mg tablet 40 mg PO HS cholesterol 07/06/22 02/18/25 History magnesium oxide 400 mg (241.3 mg 400 mg PO BIDWM #60 tabs 07/07/22 02/18/25 Rx magnesium) tablet insulin human U-100 NPH-regulr 53 unit subcut BID 02/24/24 02/18/25 History 70-30 mix 100 unit/mL subcutaneous susp (Novolin 70/30 U-100 Insulin) metoprolol succinate 50 mg 50 mg PO BID 02/24/24 02/18/25 History tablet,extended release 24 hr aspirin 325 mg tablet 325 mg PO DAILY 02/25/24 02/18/25 History dapagliflozin propanediol 10 mg 10 mg PO DAILY 02/25/24 02/18/25 History tablet (Farxiga) nitroglycerin 0.4 mg sublingual 0.4 mg sublingual Q5M PRN 02/25/24 02/18/25 History tablet Allergies Allergy/AdvReac Type Severity Reaction Status Date / Time No Known Drug Allergies Allergy Verified 02/18/25 14:40 Ortho Exam Narrative Exam Narrative: General: Patient is alert narrowing tip and in no apparent distress. Musculoskeletal: Left lower extremity was examined. Extremity was slightly shortened compared to right side. Patient unable to move hip secondary to pain. Sensation was intact to light touch dorsal and plantar aspects of the foot. EHL, tibialis anterior, gastrocnemius/soleus were intact. Foot was warm well perfused with intact DP pulse. Examination of the left upper extremity revealed no obvious deformity. There was tenderness to palpation over the lateral aspect of the elbow. No tenderness over the medial elbow or olecranon. No tenderness of the biceps tendon and biceps tendon was intact. Elbow flexion/extension and forearm supination/pronation were limited by pain, which he localized to the deep anterior elbow. Upper extremity was distally neurovascularly intact. Const Vital Signs, click to edit/add: Vital Signs - 24 hr 02/18/25 14:36 02/18/25 14:37 02/18/25 14:40 Temperature 98.6 F Pulse Rate 64 63 Pulse Rate [Left Pulse Oximeter] Pulse Rate [Pulse Oximeter] 65 Respiratory Rate 18 Blood Pressure 139/79 Blood Pressure [Right Arm] Blood Pressure [Right Upper Arm] 139/79 Pulse Oximetry 89 91 91 Oxygen Delivery Method Room Air Nasal Cannula Room Air Oxygen Flow Rate 2 02/18/25 16:04 02/18/25 16:15 02/18/25 16:21 Temperature Pulse Rate 69 68 67 Pulse Rate [Left Pulse Oximeter] Pulse Rate [Pulse Oximeter] Respiratory Rate 29 H 18 18 Blood Pressure 133/75 Blood Pressure [Right Arm] Blood Pressure [Right Upper Arm] Pulse Oximetry 96 93 93 Oxygen Delivery Method Oxygen Flow Rate 02/18/25 16:30 02/18/25 16:32 02/18/25 16:45 Temperature Pulse Rate 68 68 68 Pulse Rate [Left Pulse Oximeter] Pulse Rate [Pulse Oximeter] Respiratory Rate 18 7 L 11 L Blood Pressure 136/76 Blood Pressure [Right Arm] Blood Pressure [Right Upper Arm] Pulse Oximetry 95 96 96 Oxygen Delivery Method Oxygen Flow Rate 02/18/25 17:00 02/18/25 17:01 02/18/25 17:15 Temperature Pulse Rate 66 68 69 Pulse Rate [Left Pulse Oximeter] Pulse Rate [Pulse Oximeter] Respiratory Rate 11 L 21 13 Blood Pressure 135/73 Blood Pressure [Right Arm] Blood Pressure [Right Upper Arm] Pulse Oximetry 97 97 96 Oxygen Delivery Method Oxygen Flow Rate 02/18/25 17:30 02/18/25 17:32 02/18/25 17:45 Temperature Pulse Rate 73 72 73 Pulse Rate [Left Pulse Oximeter] Pulse Rate [Pulse Oximeter] Respiratory Rate 20 21 17 Blood Pressure 125/79 Blood Pressure [Right Arm] Blood Pressure [Right Upper Arm] Pulse Oximetry 97 95 94 Oxygen Delivery Method Oxygen Flow Rate 02/18/25 18:00 02/18/25 18:02 02/18/25 18:15 Temperature Pulse Rate 73 73 72 Pulse Rate [Left Pulse Oximeter] Pulse Rate [Pulse Oximeter] Respiratory Rate 8 L 18 21 Blood Pressure 159/90 H Blood Pressure [Right Arm] Blood Pressure [Right Upper Arm] Pulse Oximetry 96 94 95 Oxygen Delivery Method Oxygen Flow Rate 02/18/25 18:30 02/18/25 18:32 02/18/25 18:33 Temperature Pulse Rate 71 70 69 Pulse Rate [Left Pulse Oximeter] Pulse Rate [Pulse Oximeter] Respiratory Rate 20 19 16 Blood Pressure 138/78 Blood Pressure [Right Arm] Blood Pressure [Right Upper Arm] Pulse Oximetry 94 95 95 Oxygen Delivery Method Oxygen Flow Rate 02/18/25 18:56 02/18/25 18:56 02/18/25 20:53 Temperature 97.9 F 97.8 F Pulse Rate Pulse Rate [Left Pulse Oximeter] 70 Pulse Rate [Pulse Oximeter] Respiratory Rate 16 18 Blood Pressure Blood Pressure [Right Arm] 121/65 Blood Pressure [Right Upper Arm] Pulse Oximetry 95 95 95 Oxygen Delivery Method Nasal Cannula Nasal Cannula Oxygen Flow Rate 2 02/18/25 23:00 02/18/25 23:34 02/19/25 01:45 Temperature 98.4 F Pulse Rate Pulse Rate [Left Pulse Oximeter] 61 60 Pulse Rate [Pulse Oximeter] Respiratory Rate 18 18 18 Blood Pressure Blood Pressure [Right Arm] 122/73 Blood Pressure [Right Upper Arm] Pulse Oximetry 92 92 Oxygen Delivery Method Nasal Cannula Nasal Cannula Oxygen Flow Rate 2 2 02/19/25 03:00 02/19/25 07:00 Temperature 97.8 F 99.0 F Pulse Rate Pulse Rate [Left Pulse Oximeter] 61 64 Pulse Rate [Pulse Oximeter] Respiratory Rate 18 14 Blood Pressure Blood Pressure [Right Arm] 139/73 161/73 H Blood Pressure [Right Upper Arm] Pulse Oximetry 92 93 Oxygen Delivery Method Nasal Cannula Room Air Oxygen Flow Rate 2 Results Labs Labs: Laboratory Results - last 48 hr 02/18/25 02/18/25 02/18/25 16:34 20:18 22:55 WBC 13.32 H RBC 4.90 Hgb 14.4 Hct 46.3 MCV 95 MCH 29 MCHC 31 L RDW Coeff of Sandra 14.7 Plt Count 140 Neut % (Auto) 83.4 H Lymph % (Auto) 7.6 L Kimball % (Auto) 8.3 Eos % (Auto) 0.2 Baso % (Auto) 0.2 Neut # (Auto) 11.10 H Lymph # (Auto) 1.00 Kimball # (Auto) 1.10 H Eos # (Auto) 0.00 Baso # (Auto) 0.00 Abs Immat Gran (auto) 0.00 Imm/Tot Granulo (auto) 0.3 INR 1.16 H Sodium 141 Potassium 4.2 Chloride 106 Carbon Dioxide 27 Anion Gap 8 BUN 27 Creatinine 1.2 Estimated Creat Clear 49.94 Estimated GFR 59 Glucose 93 Lactate 1.6 Calcium 8.9 Magnesium 2.1 Total Creatine Kinase 477 H Urine Color Yellow Urine Appearance Clear Urine pH 5.5 Ur Specific [place] 1.020 Urine Protein 2+ A Urine Glucose (UA) 3+ A Urine Ketones Trace A Urine Blood 2+ A Urine Nitrite Negative Urine Bilirubin Negative Urine Urobilinogen 0.2 Ur Leukocyte Esterase Negative Urine RBC 0-2 Urine WBC 0-2 Ur Squamous Epith Cells Few Urine Bacteria None Lab Acknowledgement Test Added Blood Type A Positive Antibody Screen NEGATIVE 02/19/25 05:45 WBC 10.32 RBC 4.60 Hgb 13.7 Hct 43.7 MCV 95 MCH 30 MCHC 31 L RDW Coeff of Sandra Plt Count 127 L Neut % (Auto) Lymph % (Auto) Kimball % (Auto) Eos % (Auto) Baso % (Auto) Neut # (Auto) Lymph # (Auto) Kimball # (Auto) Eos # (Auto) Baso # (Auto) Abs Immat Gran (auto) Imm/Tot Granulo (auto) INR Sodium 137 Potassium 4.6 Chloride 106 Carbon Dioxide 24 Anion Gap 7 BUN 28 Creatinine 1.2 Estimated Creat Clear 49.94 Estimated GFR 59 Glucose 186 H Lactate Calcium 8.4 Magnesium Total Creatine Kinase 693 H Urine Color Urine Appearance Urine pH Ur Specific [place] Urine Protein Urine Glucose (UA) Urine Ketones Urine Blood Urine Nitrite Urine Bilirubin Urine Urobilinogen Ur Leukocyte Esterase Urine RBC Urine WBC Ur Squamous Epith Cells Urine Bacteria Lab Acknowledgement Blood Type Antibody Screen Diagnostic results Additional Comments: AP pelvis and AP lateral x-rays of the left hip performed 02/18/2025 were reviewed. These demonstrate displaced, subcapital femoral neck fracture. Mild degenerative changes of the left hip joint. AP and lateral x-rays of the left elbow were negative for fracture and dislocation. No significant degenerative changes. CT scan of left elbow revealed slight cortical buckling consistent with a subtle nondisplaced, impaction fracture of the radial head neck junction. Assessment and Plan Assessment and plan (1) Fall: Problem comment: -ground level mechanical fall prior to 11:00 a.m., 02/18 -resulting in left hip fracture, left elbow pain -CK 477 Status: Acute Total time spent: Total time spent is greater than 50% in coordination of care (as documented) at patient's floor/unit and/or counseling patient: (2) Hip fracture, left: Problem comment: -x-ray shows acute, comminuted, impacted subcapital fracture of the left femoral neck with varus angulation -ED provider discussed with Orthopedic surgery, plan for surgical repair morning of 02/19 -pain management to include lidocaine patch, scheduled Tylenol, ice, oxycodone and Dilaudid as needed. Oximetry, oxygen as needed. Anesthesia completed a block which patient states lasted less than 1 hour for pain control. Will check Mag level and give IV Mag if appropriate -bedrest, repositioning, SCDs for VTE PPX, holding aspirin -NPO at midnight, IVF monitoring for fluid overload -orthopedic surgery consult Status: Acute Total time spent: Total time spent is greater than 50% in coordination of care (as documented) at patient's floor/unit and/or counseling patient: (3) Elbow pain: Problem comment: -x-ray without acute fracture -CT scan revealed subtle nondisplaced radial neck fracture. -pain management, sling as needed for comfort. Status: Acute Total time spent: Total time spent is greater than 50% in coordination of care (as documented) at patient's floor/unit and/or counseling patient: (4) HFrEF (heart failure with reduced ejection fraction): Problem comment: - diastolic dysfunction, sees Cardiology as outpatient - continue Metoprolol; holding Dapagliflozin and Imdur preoperatively. Pharmacy to confirm if he still on Bumex - CXR shows moderate cardiomegaly and mild pulmonary edema - monitor for fluid overload perioperatively, will hold off on IVF until NPO - last TTE 11/2022: 1. Technically challenging echocardiogram. 2. Normal left ventricular chamber size. Abnormal ventricular septal motion due to pacing. 3. Calculated left ventricular ejection fraction (modified Garcia technique) is 50 %. 4. Mild concentrically increased left ventricular wall thickness. 5. Mild mitral valve regurgitation. 6. Estimated right ventricular systolic pressure is 38 mmHg. 7. The EF has improved compared to the previous echo. Estimated EF: 50-55% Normal left ventricular chamber size. Mild concentrically increased left ventricular wall thickness. Low-normal left ventricular systolic function. Calculated left ventricular ejection fraction (modified Garcia technique) is 50 %. Abnormal ventricular septal motion due to pacing. Grade 2 left ventricular diastolic dysfunction consistent with moderately increased left ventricular filling pressure. Status: Chronic Total time spent: Total time spent is greater than 50% in coordination of care (as documented) at patient's floor/unit and/or counseling patient: (5) GERMÁN on CPAP: Problem comment: - family will bring in CPAP tomorrow - pulmonary hygiene perioperatively, incentive spirometry Status: Chronic Total time spent: Total time spent is greater than 50% in coordination of care (as documented) at patient's floor/unit and/or counseling patient: (6) Insulin dependent diabetes mellitus: Problem comment: - last A1C 6.9, October 2024 - on Metformin, Glimepiride, and BID 70/30 (53 in am, 30-50 in pm) - holding perioperatively while NPO - glucose checks ACHS, insulin sliding scale Status: Chronic Total time spent: Total time spent is greater than 50% in coordination of care (as documented) at patient's floor/unit and/or counseling patient: (7) CKD (chronic kidney disease): Problem comment: - baseline creatinine 1.6-1.7, CKD stage IIIA Status: Chronic Total time spent: Total time spent is greater than 50% in coordination of care (as documented) at patient's floor/unit and/or counseling patient: (8) Hypertension: Problem comment: -continue metoprolol and amlodipine Status: Acute Total time spent: Total time spent is greater than 50% in coordination of care (as documented) at patient's floor/unit and/or counseling patient: (9) Hypercholesterolemia: Problem comment: -continue statin Status: Acute Total time spent: Total time spent is greater than 50% in coordination of care (as documented) at patient's floor/unit and/or counseling patient: (10) Pacemaker: Problem comment: -last interrogation October 2024 Status: Acute Total time spent: Total time spent is greater than 50% in coordination of care (as documented) at patient's floor/unit and/or counseling patient: Plan Patient has a displaced left hip femoral neck fracture. Risks and benefits of operative treatment and alternatives to surgery were discussed with patient and his family. Recommendation was subsequently made for surgical intervention consisting of left hip bipolar hemiarthroplasty to allow for early mobilization and advancement of weight-bearing and decreased pain. Risks of surgery to include, but not limited to, infection, neurovascular injury, hip dislocation, deep vein thrombosis, pulmonary embolism, heart attack, stroke, and even were discussed with patient and his family. All of their questions were answered. After discussion, they were in agreement with plan to proceed with surgery and informed consent was obtained. Patient has been admitted to the hospitalist for perioperative medical management. He has been medically optimized and cleared for the planned surgical procedure . He is to remain on bedrest with plan for surgery later today. He has been NPO since midnight for anticipated surgery. He also has a nondisplaced left elbow radial neck fracture. Recommend non operative management consisting of pain control, sling as needed for comfort, and early range of motion.
[2025-02-19] MEDS: LACTATED RINGERS 1000 ML 1,000 ML 125 ML IV (09:51)
--- NOTE | 2025-02-19 09:54 | P.ORPRC_ITS ---
Procedure Note Date of procedure: 02/19/25 Procedure: PREOPERATIVE DIAGNOSIS: 1. Closed, displaced, left hip femoral neck fracture POSTOPERATIVE DIAGNOSIS: 1. Closed, displaced, left hip femoral neck fracture PROCEDURE: 1. Left hip cemented bipolar hemiarthroplasty SURGEON: Vin Oliveira MD. PHYSICS DEPARTMENT CHAIR: Lori Asher P.A.-C. - A assistant golf professional was critical for this case to aid in patient positioning, tissue retraction, limb manipulation/positioning, and wound closure. ANESTHESIA: Spinal anesthetic IMPLANTS: DePuy Kay femoral stem size 6 with standard offset; 10 mm stem centralizer; DePuy 28mm +8.5 femoral head; DePuy bipolar femoral head with 28 mm inner diameter and 56 mm outer diameter FINDINGS: Displaced femoral neck fracture EBL: 300 mL COMPLICATIONS: None evident INDICATIONS: The patient is a pleasant 85-year-old male who sustained a left h ip injury after a ground level fall. Upon admission to the emergency department, the patient was found to have a displaced left femoral neck fracture. Treatment options were discussed and recommendation was made for surgical intervention consisting of bipolar left hip hemiarthroplasty. Prior to surgery, the risks and benefits of treatment were discussed with patient, all questions answered, and informed consent was obtained. DESCRIPTION OF PROCEDURE: Prior to surgery the operative hip was marked. The patient was brought to the operating room and spinal anesthesia was administered. After induction of anesthesia was undertaken, tranexamic acid and 3g IV Ancef were administered. Patient was then rotated into the right lateral decubitus position. An axillary roll was placed and all bony prominences were well padded. The left hip and lower extremity prepped and draped in usual sterile fashion. A surgical time-out was performed confirming patient identity, surgical site, and surgical procedure. A posterior lateral incision was made centered over the posterior aspect of the greater trochanter. Incision was carried through subcutaneous tissues. The IT band and gluteus billy fascia were identified. IT band and gluteus billy fascia were then incised in line with the incision and Charnley retractor was placed. Gluteus medius was retracted anteriorly. Piriformis and short external rotators were identified. Piriformis was tagged with a #1 Ethibond stitch and was released off its bony insertion. The short external rotators and capsule were also released off the femur, and an L-shaped capsulotomy was performed. These tissues were also tagged with a #1 Ethibond stitch. Once the capsulotomy was completed, a femoral neck osteotomy was then performed approximately 1 cm proximal to the lesser trochanter. The femoral head was then removed with a corkscrew device and all bony fragments were removed from the acetabulum. Femoral head measured 56 mm in diameter. We then turned our attention back to the proximal femur. A canal finder was then used to identify the center of the canal. A lateralizing Reamer was used, and the canal was reamed up to the appropriate size. We then broached sequentially to a size 6 broach, and trialed with multiple head sizes. once trials were in place intraoperative AP pelvis x-ray was obtained with the 28 mm+1.[address]. Revealed excellent position and size of the stem With appropriate offset but leg length was short compared to the right. we then trialed with the 28 mm +5 and 28 mm +8.5 femoral heads and had better stability and appropriate leg length with the 28 mm +5 femoral head. With this trial head in place, excellent stability with full range of motion, and good soft tissue tension was confirmed. The hip was then dislocated, and the trial components were removed. The distal cement restrictor was then placed. The canal was copiously irrigated and dried. Cement was then pressurized into the canal. A size 6standard offset Kay stem was then inserted into the canal in the appropriate anteversion. We removed excess cement and allowed the cement time to cure. Once the cement had cured, we dried the trunnion and impacted the formal 28 mm +8.5 femoral head and 56 mm bipolar femoral head. The hip was then reduced, and we checked stability one more time. With these components in place, we had appropriate soft tissue tension, good leg lengths, and excellent stability. The hip was then irrigated with copious amounts of normal saline. Ethibond tag sutures removed. The posterior joint capsule was repaired with #2 FiberWire [id number] interrupted sutures. The piriformis Short external rotators were repaired through bone tunnels into the greater trochanter using #2 FiberWire sutures. The IT band was closed with #1 Vicryl [id number] interrupted sutures followed by running Stratafix stitch. Subcutaneous tissues were closed with 2-0 Vicryl inverted interrupted stitches followed by a running Stratafix stitch and Exofin surgical glue. Mepilex dressing was applied, and an abduction pillow was placed between the patient's legs. Patient was then rotat ed into the supine position and awoken from anesthesia. Patient was then transferred to the recovery room in stable condition. Postoperative AP pelvis and lateral hip x-rays revealed good position of the bipolar hip component and equal leg lengths. PLAN: 1. Patient will be readmitted to the hospitalist service for postoperative medical management. 2. Weight bearing: Weightbearing as tolerated 3. Posterior hip precautions to operative hip. Abduction pillow to remain in place while patient is in bed. 4. Postoperative antibiotics: Ancef x2 doses postoperatively per protocol 5. Pain control: Oral and IV pain medications. 6. PT/OT consults for ambulation assistance/mobility education 7. DVT prophylaxis: Continue mechanical SCDs while in the hospital. -Xarelto 10 mg daily for 35 days. May resume aspirin 325 mg daily after 35 days. 8. Follow up in Orthopedic Clinic in 1-2 weeks for wound check. Follow-up doctors in Orthopedic Clinic in 6 weeks.
[2025-02-19] MEDS: TRANEXAMIC ACID 100 MG/ML INJ 1000 MG IV (10:19)
--- NOTE | 2025-02-19 11:15 | P.IMPN_ITS ---
Assessment and Plan Assessment and plan (1) Hip fracture, left: Problem comment: -x-ray shows acute, comminuted, impacted subcapital fracture of the left femoral neck with varus angulation -ED provider discussed with Orthopedic surgery, plan for surgical repair morning of 02/19 -pain management to include lidocaine patch, scheduled Tylenol, ice, oxycodone and Dilaudid as needed. Oximetry, oxygen as needed. Anesthesia completed a block which patient states lasted less than 1 hour for pain control. Will check Mag level and give IV Mag if appropriate -bedrest, repositioning, SCDs for VTE PPX, holding aspirin -NPO at midnight, IVF monitoring for fluid overload -orthopedic surgery consult -02/19: Left hip cemented bipolar hemiarthroplasty. -Orthopedic Recs: DVT prophylaxis: Continue mechanical SCDs while in the hospital. Xarelto 10 mg daily for 35 days Follow up in Orthopedic Clinic in 1-2 weeks for wound check. Follow-up doctors in Orthopedic Clinic in 6 weeks. Status: Acute (2) Elbow pain: Problem comment: -x-ray without acute fracture -CT scan revealed subtle nondisplaced radial neck fracture. -pain management, sling as needed for comfort. Status: Acute (3) Rhabdomyolysis: Problem comment: -02/19: No CRISTINE secondary to rhabdomyolysis -trend CK -patient received IV fluids but due to pulmonary edema, with been careful with the amount of IV fluids he has been taking. Status: Acute (4) HFrEF (heart failure with reduced ejection fraction): Problem comment: - diastolic dysfunction, sees Cardiology as outpatient - continue Metoprolol; holding Dapagliflozin and Imdur preoperatively. Pharmacy to confirm if he still on Bumex - CXR shows moderate cardiomegaly and mild pulmonary edema - monitor for fluid overload perioperatively, will hold off on IVF until NPO - last TTE 11/2022: 1. Technically challenging echocardiogram. 2. Normal left ventricular chamber size. Abnormal ventricular septal motion due to pacing. 3. Calculated left ventricular ejection fraction (modified Garcia technique) is 50 %. 4. Mild concentrically increased left ventricular wall thickness. 5. Mild mitral valve regurgitation. 6. Estimated right ventricular systolic pressure is 38 mmHg. 7. The EF has improved compared to the previous echo. Estimated EF: 50-55% Normal left ventricular chamber size. Mild concentrically increased left ventricular wall thickness. Low-normal left ventricular systolic function. Calculated left ventricular ejection fraction (modified Garcia technique) is 50 %. Abnormal ventricular septal motion due to pacing. Grade 2 left ventricular diastolic dysfunction consistent with moderately increased left ventricular filling pressure. 02/19: He used to be on a diuretic but it seems he stopped it few weeks ago, unknown reason. -Patient denies chest pain or discomfort, shortness of breath, orthopnea or a recent increase in his weight. Status: Chronic (5) GERMÁN on CPAP: Problem comment: - family will bring in CPAP - pulmonary hygiene perioperatively, incentive spirometry Status: Chronic (6) Pacemaker: Problem comment: -last interrogation October 2024 Status: Chronic (7) CKD stage 3a, GFR 45-59 ml/min: Problem comment: -avoid nephrotoxic medications -monitor with a.m. labs -02/19: No CRISTINE secondary to rhabdomyolysis Status: Acute (8) Insulin dependent diabetes mellitus: Problem comment: - last A1C 6.9, October 2024 - on Metformin, Glimepiride, and BID 70/30 (53 in am, 30-50 in pm) - holding perioperatively while NPO - glucose checks ACHS, insulin sliding scale Status: Chronic (9) Hypertension: Problem comment: -continue metoprolol and amlodipine Status: Acute (10) Fall: Problem comment: -ground level mechanical fall prior to 11:00 a.m., 02/18 -resulting in left hip fracture, left elbow pain -CK 477 Status: Acute (11) Hypercholesterolemia: Problem comment: -continue statin Status: Acute Total Time Spent Total Time Spent: Today I spent 50 minutes seeing the patient, reviewing Expanse and EPIC notes/diagnostics, discussing the care plan with our care time that includes social work, PT/OT, pharmacy, RT, longterm and documenting my impressions and plan in the medical record. Subjective Date Seen: 02/19/25 Interval history: Patient was seen and examined at bedside today, patient to go for surgery this a.m. (Left hip cemented bipolar hemiarthroplasty). Patient has history of heart failure with reduced ejection fraction and is having a pacemaker. He used to be on a diuretic but it seems he stopped it few weeks ago, unknown reason. Patient denies chest pain or discomfort, shortness of breath, orthopnea or a recent increase in his weight. Exam Narrative: Exam Narrative: Physical exam GENERAL: Comfortable, no acute distress. HEAD AND NECK: Atraumatic, normocephalic CARDIOVASCULAR: RRR. Normal S1, S2. No murmurs. Bilateral lower extremity pitting edema 2+. RESPIRATORY: Clear to auscultation B/L. Good air entry B/L. No wheezes or rhonchi. GASTROINTESTINAL: Not distended, not tender to palpation. NEUROLOGY: Alert, awake. Normal speech. PSYCH: Normal mood, normal affect. Const: Vital Signs, click to edit/add: Vital Signs - 24 hr 02/18/25 14:36 02/18/25 14:37 02/18/25 14:40 Temperature 98.6 F Pulse Rate 64 63 Pulse Rate [Left P ulse Oximeter] Pulse Rate [Pulse Oximeter] 65 Respiratory Rate 18 Blood Pressure 139/79 Blood Pressure [Ri ght Arm] Blood Pressure [Ri ght Upper Arm] 139/79 Pulse Oximetry 89 91 91 Oxygen Delivery Me thod Room Air Nasal Cannula Room Air Oxygen Flow Rate 2 02/18/25 16:04 02/18/25 16:15 02/18/25 16:21 Temperature Pulse Rate 69 68 67 Pulse Rate [Left P ulse Oximeter] Pulse Rate [Pulse Oximeter] Respiratory Rate 29 H 18 18 Blood Pressure 133/75 Blood Pressure [Ri ght Arm] Blood Pressure [Ri ght Upper Arm] Pulse Oximetry 96 93 93 Oxygen Delivery Me thod Oxygen Flow Rate 02/18/25 16:30 02/18/25 16:32 02/18/25 16:45 Temperature Pulse Rate 68 68 68 Pulse Rate [Left P ulse Oximeter] Pulse Rate [Pulse Oximeter] Respiratory Rate 18 7 L 11 L Blood Pressure 136/76 Blood Pressure [Ri ght Arm] Blood Pressure [Ri ght Upper Arm] Pulse Oximetry 95 96 96 Oxygen Delivery Me thod Oxygen Flow Rate 02/18/25 17:00 02/18/25 17:01 02/18/25 17:15 Temperature Pulse Rate 66 68 69 Pulse Rate [Left P ulse Oximeter] Pulse Rate [Pulse Oximeter] Respiratory Rate 11 L 21 13 Blood Pressure 135/73 Blood Pressure [Ri ght Arm] Blood Pressure [Ri ght Upper Arm] Pulse Oximetry 97 97 96 Oxygen Delivery Me thod Oxygen Flow Rate 02/18/25 17:30 02/18/25 17:32 02/18/25 17:45 Temperature Pulse Rate 73 72 73 Pulse Rate [Left P ulse Oximeter] Pulse Rate [Pulse Oximeter] Respiratory Rate 20 21 17 Blood Pressure 125/79 Blood Pressure [Ri ght Arm] Blood Pressure [Ri ght Upper Arm] Pulse Oximetry 97 95 94 Oxygen Delivery Me thod Oxygen Flow Rate 02/18/25 18:00 02/18/25 18:02 02/18/25 18:15 Temperature Pulse Rate 73 73 72 Pulse Rate [Left P ulse Oximeter] Pulse Rate [Pulse Oximeter] Respiratory Rate 8 L 18 21 Blood Pressure 159/90 H Blood Pressure [Ri ght Arm] Blood Pressure [Ri ght Upper Arm] Pulse Oximetry 96 94 95 Oxygen Delivery Me thod Oxygen Flow Rate 02/18/25 18:30 02/18/25 18:32 02/18/25 18:33 Temperature Pulse Rate 71 70 69 Pulse Rate [Left P ulse Oximeter] Pulse Rate [Pulse Oximeter] Respiratory Rate 20 19 16 Blood Pressure 138/78 Blood Pressure [Ri ght Arm] Blood Pressure [Ri ght Upper Arm] Pulse Oximetry 94 95 95 Oxygen Delivery Me thod Oxygen Flow Rate 02/18/25 18:56 02/18/25 18:56 02/18/25 20:53 Temperature 97.9 F 97.8 F Pulse Rate Pulse Rate [Left P ulse Oximeter] 70 Pulse Rate [Pulse Oximeter] Respiratory Rate 16 18 Blood Pressure Blood Pressure [Ri ght Arm] 121/65 Blood Pressure [Ri ght Upper Arm] Pulse Oximetry 95 95 95 Oxygen Delivery Me thod Nasal Cannula Nasal Cannula Oxygen Flow Rate 2 02/18/25 23:00 02/18/25 23:34 02/19/25 01:45 Temperature 98.4 F Pulse Rate Pulse Rate [Left P ulse Oximeter] 61 60 Pulse Rate [Pulse Oximeter] Respiratory Rate 18 18 18 Blood Pressure Blood Pressure [Ri ght Arm] 122/73 Blood Pressure [Ri ght Upper Arm] Pulse Oximetry 92 92 Oxygen Delivery Me thod Nasal Cannula Nasal Cannula Oxygen Flow Rate 2 2 02/19/25 03:00 02/19/25 07:00 Temperature 97.8 F 99.0 F Pulse Rate Pulse Rate [Left P ulse Oximeter] 61 64 Pulse Rate [Pulse Oximeter] Respiratory Rate 18 14 Blood Pressure Blood Pressure [Ri ght Arm] 139/73 161/73 H Blood Pressure [[facility] Upper Arm] Pulse Oximetry 92 93 Oxygen Delivery Me thod Nasal Cannula Room Air Oxygen Flow Rate 2 Labs Labs: Laboratory Results - last 24 hr 02/18/25 02/18/25 02/18/25 16:34 20:18 22:55 WBC 13.32 H RBC 4.90 Hgb 14.4 Hct 46.3 MCV 95 MCH 29 MCHC 31 L RDW Coeff of Sandra 14.7 Plt Count 140 Neut % (Auto) 83.4 H Lymph % (Auto) 7.6 L [place] % (Auto) 8.3 Eos % (Auto) 0.2 Baso % (Auto) 0.2 Neut # (Auto) 11.10 H Lymph # (Auto) 1.00 [place] # (Auto) 1.10 H Eos # (Auto) 0.00 Baso # (Auto) 0.00 Abs Immat Gran (auto) 0.00 Imm/Tot Granulo (auto) 0.3 INR 1.16 H Sodium 141 Potassium 4.2 Chloride 106 Carbon Dioxide 27 Anion Gap 8 BUN 27 Creatinine 1.2 Estimated Creat Clear 49.94 Estimated GFR 59 Glucose 93 Lactate 1.6 Calcium 8.9 Magnesium 2.1 Total Creatine Kinase 477 H Urine Color Yellow Urine Appearance Clear Urine pH 5.5 Ur Specific [place] 1.020 Urine Protein 2+ A Urine Glucose (UA) 3+ A Urine Ketones Trace A Urine Blood 2+ A Urine Nitrite Negative Urine Bilirubin Negative Urine Urobilinogen 0.2 Ur Leukocyte Esterase Negative Urine RBC 0-2 Urine WBC 0-2 Ur Squamous Epith Cells Few Urine Bacteria None Lab Acknowledgement Test Added Blood Type A Positive Antibody Screen NEGATIVE 02/19/25 05:45 WBC 10.32 RBC 4.60 Hgb 13.7 Hct 43.7 MCV 95 MCH 30 MCHC 31 L RDW Coeff of Sandra Plt Count 127 L Neut % (Auto) Lymph % (Auto) [place] % (Auto) Eos % (Auto) Baso % (Auto) Neut # (Auto) Lymph # (Auto) [place] # (Auto) Eos # (Auto) Baso # (Auto) Abs Immat Gran (auto) Imm/Tot Granulo (auto) INR Sodium 137 Potassium 4.6 Chloride 106 Carbon Dioxide 24 Anion Gap 7 BUN 28 Creatinine 1.2 Estimated Creat Clear 49.94 Estimated GFR 59 Glucose 186 H Lactate Calcium 8.4 Magnesium Total Creatine Kinase 693 H Urine Color Urine Appearance Urine pH Ur Specific [place] Urine Protein Urine Glucose (UA) Urine Ketones Urine Blood Urine Nitrite Urine Bilirubin Urine Urobilinogen Ur Leukocyte Esterase Urine RBC Urine WBC Ur Squamous Epith Cells Urine Bacteria Lab Acknowledgement Blood Type Antibody Screen
--- NOTE | 2025-02-19 11:45 | P.ANES_ITS ---
Anesthesia Charges Start Date/Time Anesthesia Start Date: 02/19/25 Anesthesia Start Time: 09:50 Stop Date/Time Anesthesia Stop Date: 02/19/25 Anesthesia Stop Time: 13:39 Summary Extremes of Age - Over 70 or under 1: MDA Coding CPT Codes CPT Codes: ANESTH SURGERY OF FEMUR - 63431 ([id number]) P3 - PATIENT W/SEVERE SYS DISEASE, QK - ACCOUNT SERVICES COORDINATOR 2-4 CNCRNT ANES PROC, QX - PUNCH FINISHER SVC W/ MD MED DIRECTION Additional Codes: Summary - Extremes of Age - Over 70 or under 1: MDA ([id number])
--- NOTE | 2025-02-19 11:45 | W.ANESCHARGE ---
Anesthesia Charges Start Date/Time Anesthesia Start Date: 02/19/25 Anesthesia Start Time: 09:50 Stop Date/Time Anesthesia Stop Date: 02/19/25 Anesthesia Stop Time: 13:39 Summary Extremes of Age - Over 70 or under 1: MDA Coding CPT Codes CPT Codes: ANESTH SURGERY OF FEMUR - 16488 ([id number]) P3 - PATIENT W/SEVERE SYS DISEASE, QK - TANK CLEANER 2-4 CNCRNT ANES PROC, QX - MEDICAL LIBRARY ASSISTANT SVC W/ MD MED DIRECTION Additional Codes: Summary - Extremes of Age - Over 70 or under 1: MDA ([id number])
--- NOTE | 2025-02-19 11:56 | CRLHL7_ITS ---
For Patients: As a result of the Cures Act, medical imaging exams and procedure reports are released immediately into your electronic medical record. You may view this report before your referring provider. If you have questions, please contact your health care provider. Indication: Intraoperative left bipolar hip. Technique: Left hip 1 views. Comparison: Hip radiographs 02/18/2025. Findings/Impression: Bones/joint spaces: Intraoperative radiograph for placement of a left hip arthroplasty in the setting of left femoral neck fracture. No evidence of intraoperative hardware complication. Soft tissues: Expected intraoperative appearance. Dictated by Edgar West MD @ 02/19/2025 4:29:35 PM (Electronically Signed)
--- NOTE | 2025-02-19 13:10 | PC.SOCIAL ---
Addendum entered by JALYN Monroy 02/19/25 14:59: Discharge planning: [facility] has a short-term rehab bed available on Monday of this week. networker secure emailed initial information to Lisa at [facility] for initial review. networker will need to send PT/OT notes to Lisa tomorrow after they are completed. Social work to follow-up as needed. Original Note: Discharge planning: networker met with pt's , Riddhi, while pt was in surgery. networker explained that with the pt's age and injury it is being anticipated that he will most likely need a TCU after this hospital stay. Pt's was fine with this plan and asked for this worker to check on availability at [facility] in [place](pt and his live in [place]). networker did ask the pt's to choose two more assisted facilities in case [facility] does not have openings and she plans to look over the sheet and will let this worker know the other two facilities tomorrow when this worker checks in. Pt's was provided with the [facility] list. Social work to follow-up as needed.
--- NOTE | 2025-02-19 13:18 | CRLHL7_ITS ---
For Patients: As a result of the Cures Act, medical imaging exams and procedure reports are released immediately into your electronic medical record. You may view this report before your referring provider. If you have questions, please contact your health care provider. HISTORY: Postoperative. TECHNIQUE: Two views of the left hip. COMPARISON: 02/19/2025 and 02/18/2025. FINDINGS: Patient is status post left hip hemiarthroplasty. The components appear appropriately seated and intact. No new fracture. No dislocation. IMPRESSION: 1. Intact left hip hemiarthroplasty. Dictated by Wil Lockhart MD @ 02/20/2025 4:50:08 AM (Electronically Signed)
--- NOTE | 2025-02-19 13:38 | P.ANES_ITS ---
Anesthesia Charges Start Date/Time Anesthesia Start Date: 02/19/25 Anesthesia Start Time: 09:50 Stop Date/Time Anesthesia Stop Date: 02/19/25 Anesthesia Stop Time: 13:39 Summary Extremes of Age - Over 70 or under 1: INTERACTIVE MEDIA DIRECTOR Coding CPT Codes CPT Codes: ANESTH SURGERY OF FEMUR - 85052 ([id number]) P3 - PATIENT W/SEVERE SYS DISEASE, QK - SURFACE SHIP USW SUPERVISOR 2-4 CNCRNT ANES PROC Additional Codes: Summary - Extremes of Age - Over 70 or under 1: INTERACTIVE MEDIA DIRECTOR ([id number])
--- NOTE | 2025-02-19 13:38 | W.ANESCHARGE ---
Anesthesia Charges Start Date/Time Anesthesia Start Date: 02/19/25 Anesthesia Start Time: 09:50 Stop Date/Time Anesthesia Stop Date: 02/19/25 Anesthesia Stop Time: 13:39 Summary Extremes of Age - Over 70 or under 1: REAL ESTATE LAWYER Coding CPT Codes CPT Codes: ANESTH SURGERY OF FEMUR - 96054 ([id number]) P3 - PATIENT W/SEVERE SYS DISEASE, QK - POT MAKER 2-4 CNCRNT ANES PROC Additional Codes: Summary - Extremes of Age - Over 70 or under 1: REAL ESTATE LAWYER ([id number])
--- NOTE | 2025-02-19 14:26 | SUR.PHASEI ---
patient met discharge criteria per anesthesia
[2025-02-19] MEDS: AMLODIPINE 5 MG TABLET PO (15:41)
[2025-02-19] MEDS: CEFAZOLIN 3 GM in 0.9 % SODIUM CHLORIDE Mini-bag 100 ML IVPB (16:09)
[2025-02-19] MEDS: LACTATED RINGERS 1000 ML 1,000 ML 75 ML IV (16:10)
[2025-02-19] MEDS: INSULIN ASPART 100 UNIT/ML SUBCUT ×2 (17:49→21:45)
--- NOTE | 2025-02-19 19:17 | PC.NURSE ---
End of Shift: Patient pleasant and cooperative, A&O but forgetful after surgery. VSS, afebrile. SpO2 maintained above 90% on 2L NC. Dressing to left hip C/D/I. Gan patent and draining. Tolerating regular diet, denies nausea. ?
[2025-02-19] MEDS: ATORVASTATIN CALCIUM 40 MG TABLET PO (21:43)
[2025-02-19] MEDS: METOPROLOL SUCCINATE (XL) 50 MG TAB PO (21:43)
[2025-02-20] VITALS (11 sets, daily range): BP systolic 136–154; BP diastolic 62–78; PULSE 71–88; RESP 16–24; TEMP 36.5–36.9; O2SAT 85–94
[2025-02-20] MEDS: ACETAMINOPHEN 500 MG TABLET 1000 MG PO ×4 (03:08→22:45)
[2025-02-20 06:59] LABS: Hematocrit* 39.2 % (37.0-53.0); Hemoglobin* 12.4 gm/dL (13.5-17.5); Mean Corpuscular HGB Conc 32 gm/dL (32-36); Mean Corpuscular Hemoglobin 30 pg (26-34); Mean Corpuscular Volume 95 fL (80-100); Red Blood Count* 4.15 m/uL (4.30-5.90); White Blood Count* 10.21 K/uL (4.50-11.00)
--- NOTE | 2025-02-20 07:06 | PC.NURSE ---
The patient is cooperative and oreintated, VSS. Requiring Oxygen to maintain O2 >90%... on 1.5 L. GERMÁN, CPAP is here but the patient did not want to wear it overnight despite encouragement. Abductor pillow in place, Ice to L hip and L arm is in sling as well. The patient refused to be repositioned despite education due to fear of pain. Call light within reach and pereyra is patent and draining. Noemi LOPEZ BSN
[2025-02-20 07:09] LABS: Chloride* 102 mmol/L (96-114)
[2025-02-20 07:10] LABS: Potassium* 4.5 mmol/L (3.6-5.1); Sodium* 133 mmol/L (135-149)
[2025-02-20 07:13] LABS: Anion Gap 6 mEq/L (7-15); Blood Urea Nitrogen* 30 mg/dL (7-30); Calcium* 8.1 mg/dL (8.4-10.6); Carbon Dioxide* 25 mmol/L (20-32); Creatine Kinase* 1068 U/L (54-186); Creatinine* 1.4 mg/dL (0.5-1.5); Est. Creatinine Clearance* 42.80; Estimated Glomerular Filt Rate 49 ml/min; Glucose* 249 mg/dL (60-115)
[2025-02-20 07:14] LABS: Slide Review Reflex No
[2025-02-20] MEDS: INSULIN ASPART 100 UNIT/ML SUBCUT ×3 (08:06→18:46)
[2025-02-20] MEDS: SENNOSIDES/DOCUSATE TABLET 1 TAB PO (08:11)
[2025-02-20] MEDS: METOPROLOL SUCCINATE (XL) 50 MG TAB PO ×2 (08:11→20:37)
[2025-02-20] MEDS: RIVAROXABAN 10 MG TABLET PO (08:11)
[2025-02-20] MEDS: AMLODIPINE 5 MG TABLET PO (08:12)
[2025-02-20] MEDS: SODIUM CHLORIDE 0.9 % (FLUSH) 10 ML SYRINGE 5 ML IVF ×2 (08:12→20:40)
--- NOTE | 2025-02-20 09:15 | PM.ORPN ---
Subjective Subjective Time Seen by Provider: 09:00 Date Seen: 02/20/25 Principal diagnosis: Day 1 s/p left hip cemented bipolar hemiarthroplasty (02/19/25,Dr. Oliveira) Interval history: Ramses is resting comfortably in his bed. He reports left hip pain with movement. He has not yet attempted weightbearing or ambulation. Denies postoperative chest pain, SOB, fever, chills, numbness/tingling distally and nausea and vomiting. Denies postop bowel movement, but does admit to some flatulence. Ramses is also wearing his left upper extremity sling this morning. He reports mild pain near his radial head, but this appears to be well managed. Patient's (Riddhi) and daugther (Gogo) were present during our visit. Ortho Exam Narrative Exam Narrative: Incision/Dressing: Dressing appears clean and dry. No drainage present. Mepilex intact. Left hip appears moderately swollen but supple with no obvious erythema, fluctuance or excessive warmth. No ecchymosis or erythematous streaking. Warmth around the wound is appropriate. Ice is being utilized as needed. CMS: Intact distally with 2+ Dorsalis pedis and Posterior Tibial pulses. Confirmed sensation distally. Calf: Left calf is supple, with no swelling, pain, tenderness, erythema, discoloration or coolness to the touch. Constitutional: Patient is alert and oriented x3. Patient is in no acute distress and converses without labored breathing. Patient is able to make decisions and demonstrates good insight. Patient is pleasant and cooperative. Affect is full range and appropriate for the circumstances. Left elbow: No abrasions nor open wounds. Elbow motion deferred. Sling left in place. Const Vital Signs, click to edit/add: Vital Signs - 24 hr 02/19/25 13:36 02/19/25 13:40 02/19/25 13:45 Temperature 98.5 F 98.5 F 98.5 F Pulse Rate 78 73 76 Pulse Rate [Left Dorsalis Pedis] Pulse Rate [Left Pulse Oximeter] Respiratory Rate 17 16 17 Blood Pressure 148/82 H 150/81 H 149/85 H Blood Pressure [Right Arm] Pulse Oximetry 99 98 97 Oxygen Delivery Method Nasal Cannula Nasal Cannula Nasal Cannula Oxygen Flow Rate 6 6 6 02/19/25 13:50 02/19/25 13:55 02/19/25 14:00 Temperature 98.5 F 98.5 F 98.5 F Pulse Rate 73 73 73 Pulse Rate [Left Dorsalis Pedis] Pulse Rate [Left Pulse Oximeter] Respiratory Rate 17 12 12 Blood Pressure 152/85 H 162/83 H 159/83 H Blood Pressure [Right Arm] Pulse Oximetry 98 100 99 Oxygen Delivery Method Nasal Cannula Nasal Cannula Nasal Cannula Oxygen Flow Rate 6 6 6 02/19/25 14:05 02/19/25 14:10 02/19/25 14:20 Temperature 98.4 F 98.4 F 97.3 F L Pulse Rate 73 75 75 Pulse Rate [Left Dorsalis Pedis] Pulse Rate [Left Pulse Oximeter] Respiratory Rate 19 18 14 Blood Pressure 165/116 H 152/76 H 170/84 H Blood Pressure [Right Arm] Pulse Oximetry 95 91 95 Oxygen Delivery Method Nasal Cannula Nasal Cannula Room Air Oxygen Flow Rate 2 2 02/19/25 14:30 02/19/25 14:45 02/19/25 15:00 Temperature 97.5 F L 97.6 F Pulse Rate 75 77 76 Pulse Rate [Left Dorsalis Pedis] Pulse Rate [Left Pulse Oximeter] Respiratory Rate 14 14 Blood Pressure 176/91 H 179/84 H 161/79 H Blood Pressure [Right Arm] Pulse Oximetry 95 94 Oxygen Delivery Method Nasal Cannula Room Air Oxygen Flow Rate 2 02/19/25 15:00 02/19/25 15:15 02/19/25 15:15 Temperature 97.6 F 97.6 F Pulse Rate 80 Pulse Rate [Left Dorsalis Pedis] Pulse Rate [Left Pulse Oximeter] 80 Respiratory Rate 16 14 16 Blood Pressure 170/78 H Blood Pressure [Right Arm] 170/78 H Pulse Oximetry 90 94 Oxygen Delivery Method Nasal Cannula Nasal Cannula Oxygen Flow Rate 1 2 02/19/25 15:30 02/19/25 16:00 02/19/25 17:00 Temperature 97.9 F 98.1 F 98.0 F Pulse Rate 80 81 71 Pulse Rate [Left Dorsalis Pedis] Pulse Rate [Left Pulse Oximeter] Respiratory Rate 16 16 16 Blood Pressure 153/79 H 145/68 H 148/74 H Blood Pressure [Right Arm] Pulse Oximetry 94 93 92 Oxygen Delivery Method Nasal Cannula Nasal Cannula Nasal Cannula Oxygen Flow Rate 2 2 2 02/19/25 18:00 02/19/25 18:56 02/19/25 18:56 Temperature 97.8 F 98.1 F Pulse Rate 84 Pulse Rate [Left Dorsalis Pedis] 73 Pulse Rate [Left Pulse Oximeter] Respiratory Rate 16 16 Blood Pressure 159/67 H Blood Pressure [Right Arm] 164/78 H Pulse Oximetry 93 95 95 Oxygen Delivery Method Nasal Cannula Nasal Cannula Oxygen Flow Rate 2 2 02/19/25 19:00 02/20/25 00:00 02/20/25 03:00 Temperature 98.1 F 97.7 F 97.9 F Pulse Rate Pulse Rate [Left Dorsalis Pedis] 73 Pulse Rate [Left Pulse Oximeter] 71 75 Respiratory Rate 16 16 16 Blood Pressure Blood Pressure [Right Arm] 164/78 H 154/69 H 136/65 Pulse Oximetry 95 93 94 Oxygen Delivery Method Nasal Cannula Nasal Cannula Nasal Cannula Oxygen Flow Rate 2 2 1 02/20/25 03:55 02/20/25 04:38 02/20/25 04:42 Temperature Pulse Rate Pulse Rate [Left Dorsalis Pedis] Pulse Rate [Left Pulse Oximeter] Respiratory Rate Blood Pressure Blood Pressure [Right Arm] Pulse Oximetry 88 85 L 90 Oxygen Delivery Method Nasal Cannula Nasal Cannula Nasal Cannula Oxygen Flow Rate 1 1 1.5 Assessment and Plan Assessment and plan (1) GERMÁN on CPAP: Problem details: - family will bring in CPAP - pulmonary hygiene perioperatively, incentive spirometry Status: Chronic (2) Elbow pain: Problem details: -CT scan revealed subtle nondisplaced radial neck fracture. -pain management, sling as needed for comfort. - Spoke with therapy regarding a platform walker to support Ramses's left elbow and avoid pressure to the radial head/neck. Status: Acute (3) Hip fracture, left: Problem details: Day 1 s/p left hip cemented bipolar hemiarthroplasty (02/19/25, Dr. Oliveira) - Mepilex dressing will remain in place x 7-10 days. Dressing is waterproof. May shower. Remove dressing sooner if this becomes saturated. - Weight bear as tolerated with walker for assistance. - Posterior hip precautions. [place] abduction pillow in place when in bed. - For pain management, recommend ice, elevation, Tylenol and Oxycodone PRN. I spoke with nursing staff and Dr. Farah regarding increasing Ramses's Oxycodone to 5-10 mg Q2H. This increase may cause Ramses to become more hypoxic at night due to his GERMÁN. He will require a CPAP at night. His family intend on bringing this for him. - For DVT prophylaxis: Xarelto 10 mg daily for 35 days after which he will resume aspirin 325 mg. I also recommend ankle pumps when sedentary and frequent ambulation. - Patient will follow-up with myself in 2 weeks for wound check. If transportation is a challenge, nursing staff at his SNF may perform this wound check and notify our clinic with any concerns. - Follow-up with Dr. Oliveira in 6 weeks. - Notify Orthopedics with any questions or concerns. ([phone]) Status: Acute
--- NOTE | 2025-02-20 10:57 | P.IMPN_ITS ---
Assessment and Plan Assessment and plan (1) Hip fracture, left: Problem comment: Day 1 s/p left hip cemented bipolar hemiarthroplasty (02/19/25, Dr. Oliveira) - Mepilex dressing will remain in place x 7-10 days. Dressing is waterproof. May shower. Remove dressing sooner if this becomes saturated. - Weight bear as tolerated with walker for assistance. - Posterior hip precautions. [place] abduction pillow in place when in bed. - For pain management, recommend ice, elevation, Tylenol and Oxycodone PRN. I spoke with nursing staff and Dr. Farah regarding increasing Ramses's Oxycodone to 5-10 mg Q2H. This increase may cause Ramses to become more hypoxic at night due to his GERMÁN. He will require a CPAP at night. His family intend on bringing this for him. - For DVT prophylaxis: Xarelto 10 mg daily for 35 days after which he will resume aspirin 325 mg. I also recommend ankle pumps when sedentary and frequent ambulation. - Patient will follow-up with myself in 2 weeks for wound check. If transportation is a challenge, nursing staff at his SNF may perform this wound check and notify our clinic with any concerns. - Follow-up with Dr. Oliveira in 6 weeks. - Notify Orthopedics with any questions or concerns. ([phone]) -02/20: Pain controlled. PT OT recommends short-term rehab. Status: Acute (2) Elbow pain: Problem comment: -CT scan revealed subtle nondisplaced radial neck fracture. -pain management, sling as needed for comfort. - Spoke with therapy regarding a platform walker to support Ramses's left elbow and avoid pressure to the radial head/neck. -left arm sling Status: Acute (3) Rhabdomyolysis: Problem comment: -02/19: No CRISTINE secondary to rhabdomyolysis -trend CK -patient received IV fluids but due to pulmonary edema, with been careful with the amount of IV fluids he has been taking. -02/20: Trending up, IV fluid in, slow rate due to congestive heart failure and pulmonary edema. Status: Acute (4) HFrEF (heart failure with reduced ejection fraction): Problem comment: - diastolic dysfunction, sees Cardiology as outpatient - continue Metoprolol; holding Dapagliflozin and Imdur preoperatively. Pharmacy to confirm if he still on Bumex - CXR shows moderate cardiomegaly and mild pulmonary edema - monitor for fluid overload perioperatively, will hold off on IVF until NPO - last TTE 11/2022: 1. Technically challenging echocardiogram. 2. Normal left ventricular chamber size. Abnormal ventricular septal motion due to pacing. 3. Calculated left ventricular ejection fraction (modified Garcia technique) is 50 %. 4. Mild concentrically increased left ventricular wall thickness. 5. Mild mitral valve regurgitation. 6. Estimated right ventricular systolic pressure is 38 mmHg. 7. The EF has improved compared to the previous echo. Estimated EF: 50-55% Normal left ventricular chamber size. Mild concentrically increased left ventricular wall thickness. Low-normal left ventricular systolic function. Calculated left ventricular ejection fraction (modified Garcia technique) is 50 %. Abnormal ventricular septal motion due to pacing. Grade 2 left ventricular diastolic dysfunction consistent with moderately increased left ventricular filling pressure. 02/19: He used to be on a diuretic but it seems he stopped it few weeks ago, unknown reason. -Patient denies chest pain or discomfort, shortness of breath, orthopnea or a recent increase in his weight. Status: Chronic (5) GERMÁN on CPAP: Problem comment: - family will bring in CPAP - pulmonary hygiene perioperatively, incentive spirometry Status: Chronic (6) Pacemaker: Problem comment: -last interrogation October 2024 Status: Chronic (7) CKD stage 3a, GFR 45-59 ml/min: Problem comment: -avoid nephrotoxic medications -monitor with a.m. labs -02/19: No CRISTINE secondary to rhabdomyolysis Status: Acute (8) Insulin dependent diabetes mellitus: Problem comment: - last A1C 6.9, October 2024 - on Metformin, Glimepiride, and BID 70/30 (53 in am, 30-50 in pm) - holding perioperatively while NPO - glucose checks ACHS, insulin sliding scale Status: Chronic (9) Hypertension: Problem comment: -continue metoprolol and amlodipine Status: Acute (10) Fall: Problem comment: -ground level mechanical fall prior to 11:00 a.m., 02/18 -resulting in left hip fracture, left elbow pain -CK 477 Status: Acute (11) Hypercholesterolemia: Problem comment: -continue statin Status: Acute Total Time Spent Total Time Spent: Today I spent 50 minutes seeing the patient, reviewing [facility]panse and EPIC notes/diagnostics, discussing the care plan with our care time that includes social work, PT/OT, pharmacy, RT, shelter and documenting my impressions and plan in the medical record. Subjective Date Seen: 02/20/25 Interval history: Patient seen and examined at bedside. He still needing oxygen 1.5 liters/minute. Pain controlled. PT OT recommends short-term rehab. Exam Narrative: Exam Narrative: Physical exam GENERAL: Comfortable, no acute distress. HEAD AND NECK: Atraumatic, normocephalic CARDIOVASCULAR: RRR. Normal S1, S2. No murmurs. RESPIRATORY: Clear to auscultation B/L. Good air entry B/L. No wheezes or rhonchi. MSK: Lt arm sling. NEUROLOGY: Alert, awake. Normal speech. PSYCH: Normal mood, normal affect. Const: Vital Signs, click to edit/add: Vital Signs - 24 hr 02/19/25 13:36 02/19/25 13:40 02/19/25 13:45 Temperature 98.5 F 98.5 F 98.5 F Pulse Rate 78 73 76 Pulse Rate [Left D orsalis Pedis] Pulse Rate [Left P ulse Oximeter] Respiratory Rate 17 16 17 Blood Pressure 148/82 H 150/81 H 149/85 H Blood Pressure [Ri ght Arm] Pulse Oximetry 99 98 97 Oxygen Delivery Me thod Nasal Cannula Nasal Cannula Nasal Cannula Oxygen Flow Rate 6 6 6 02/19/25 13:50 02/19/25 13:55 02/19/25 14:00 Temperature 98.5 F 98.5 F 98.5 F Pulse Rate 73 73 73 Pulse Rate [Left D orsalis Pedis] Pulse Rate [Left P ulse Oximeter] Respiratory Rate 17 12 12 Blood Pressure 152/85 H 162/83 H 159/83 H Blood Pressure [Ri ght Arm] Pulse Oximetry 98 100 99 Oxygen Delivery Me thod Nasal Cannula Nasal Cannula Nasal Cannula Oxygen Flow Rate 6 6 6 02/19/25 14:05 02/19/25 14:10 02/19/25 14:20 Temperature 98.4 F 98.4 F 97.3 F L Pulse Rate 73 75 75 Pulse Rate [Left D orsalis Pedis] Pulse Rate [Left P ulse Oximeter] Respiratory Rate 19 18 14 Blood Pressure 165/116 H 152/76 H 170/84 H Blood Pressure [Ri ght Arm] Pulse Oximetry 95 91 95 Oxygen Delivery Me thod Nasal Cannula Nasal Cannula Room Air Oxygen Flow Rate 2 2 02/19/25 14:30 02/19/25 14:45 02/19/25 15:00 Temperature 97.5 F L 97.6 F Pulse Rate 75 77 76 Pulse Rate [Left D orsalis Pedis] Pulse Rate [Left P ulse Oximeter] Respiratory Rate 14 14 Blood Pressure 176/91 H 179/84 H 161/79 H Blood Pressure [Ri ght Arm] Pulse Oximetry 95 94 Oxygen Delivery Me thod Nasal Cannula Room Air Oxygen Flow Rate 2 02/19/25 15:00 02/19/25 15:15 02/19/25 15:15 Temperature 97.6 F 97.6 F Pulse Rate 80 Pulse Rate [Left D orsalis Pedis] Pulse Rate [Left P ulse Oximeter] 80 Respiratory Rate 16 14 16 Blood Pressure 170/78 H Blood Pressure [Ri ght Arm] 170/78 H Pulse Oximetry 90 94 Oxygen Delivery Me thod Nasal Cannula Nasal Cannula Oxygen Flow Rate 1 2 02/19/25 15:30 02/19/25 16:00 02/19/25 17:00 Temperature 97.9 F 98.1 F 98.0 F Pulse Rate 80 81 71 Pulse Rate [Left D orsalis Pedis] Pulse Rate [Left P ulse Oximeter] Respiratory Rate 16 16 16 Blood Pressure 153/79 H 145/68 H 148/74 H Blood Pressure [Ri ght Arm] Pulse Oximetry 94 93 92 Oxygen Delivery Me thod Nasal Cannula Nasal Cannula Nasal Cannula Oxygen Flow Rate 2 2 2 02/19/25 18:00 02/19/25 18:56 02/19/25 18:56 Temperature 97.8 F 98.1 F Pulse Rate 84 Pulse Rate [Left D orsalis Pedis] 73 Pulse Rate [Left P ulse Oximeter] Respiratory Rate 16 16 Blood Pressure 159/67 H Blood Pressure [Ri ght Arm] 164/78 H Pulse Oximetry 93 95 95 Oxygen Delivery Me thod Nasal Cannula Nasal Cannula Oxygen Flow Rate 2 2 02/19/25 19:00 02/20/25 00:00 02/20/25 03:00 Temperature 98.1 F 97.7 F 97.9 F Pulse Rate Pulse Rate [Left D orsalis Pedis] 73 Pulse Rate [Left P ulse Oximeter] 71 75 Respiratory Rate 16 16 16 Blood Pressure Blood Pressure [[facility] Arm] 164/78 H 154/69 H 136/65 Pulse Oximetry 95 93 94 Oxygen Delivery Me thod Nasal Cannula Nasal Cannula Nasal Cannula Oxygen Flow Rate 2 2 1 02/20/25 03:55 02/20/25 04:38 02/20/25 04:42 Temperature Pulse Rate Pulse Rate [Left D orsalis Pedis] Pulse Rate [Left P ulse Oximeter] Respiratory Rate Blood Pressure Blood Pressure [[facility] Arm] Pulse Oximetry 88 85 L 90 Oxygen Delivery Me thod Nasal Cannula Nasal Cannula Nasal Cannula Oxygen Flow Rate 1 1 1.5 02/20/25 08:15 Temperature Pulse Rate Pulse Rate [Left D orsalis Pedis] Pulse Rate [Left P ulse Oximeter] 75 Respiratory Rate 18 Blood Pressure Blood Pressure [[facility] Arm] Pulse Oximetry Oxygen Delivery Me thod Oxygen Flow Rate Labs Labs: Laboratory Results - last 24 hr 02/20/25 05:50 WBC 10.21 RBC 4.15 L Hgb 12.4 L Hct 39.2 MCV 95 MCH 30 MCHC 32 Plt Count 110 L Sodium 133 L Potassium 4.5 Chloride 102 Carbon Dioxide 25 Anion Gap 6 L BUN 30 Creatinine 1.4 Estimated Creat Clear 42.80 Estimated GFR 49 Glucose 249 H Calcium 8.1 L Total Creatine Kinase 1068 H
--- NOTE | 2025-02-20 11:35 | RESP.RT ---
Pt seen this AM. Sitting in chair which is great. on 3L NC SPO2 95%. Worked on IS with pt. Pt does Excellent with it Volumes 1.0 or greater. No cough at this time. cough on command is strong and dry. Educated Pt on need to do IS,CDB, and be in chair as tolerates, as this all will help to prevent pneumonia. Decreased oxygen to 1L. SPO2 88-93% If pt desaturates, provide IS and coughing vs increasing oxygen. Continue IS every hour. PT declined CPAP last night. PT states he does regularly wear it. Instructed pt to wear it while napping and at HS, secondary to essential need as his pain meds have increased. He and are in agreement with the above.
--- NOTE | 2025-02-20 14:58 | PC.SOCIAL ---
Addendum entered by JALYN Monroy 02/20/25 15:20: Discharge planning: Pre-admission screening was completed and sent to Lisa at [facility]. [id number]. Social work to follow-up as needed. Original Note: Discharge planning: Pt has been accepted to [facility] for short-term rehab as early as tomorrow(Monday) if he is medically stable. head loft worker spoke to pt's who is pleased with this plan and would like non-emergent EMS transportation to [place]. The cost for [facility] from the hospital to [place] will be about $197.00(92+[id number]= 197). Pt's is fine with this cost. head loft worker will stop back later this afternoon to have her sign the [facility] wheelchair form. Social work to follow-up as needed.
--- NOTE | 2025-02-20 19:32 | PC.NURSE ---
Nursing Care Hours: [id number] Pt this shift calm and cooperative, alert and oriented. Pain treated PO options and ice packs. EZ stand used for transfers. Requiring supplemental oxygen to keep sats above 90%. Unable to bleed O2 into CPAP, and spo2 dropping into the high 70's. CPAP stopped and O2 supplied via NC instead. Tolerating diet.
[2025-02-20] MEDS: ATORVASTATIN CALCIUM 40 MG TABLET PO (20:37)
--- NOTE | 2025-02-20 23:04 | PC.NURSE ---
End of shift Note 249 Patient was very pleasant and cooperative throughout shift. VSS. Afebrile. Heavy 2-3 assist. Easy stand with gait belt. Patient is hard of hearing and gets startled if approached too closely. Currently in bed. Offered to help put his CPAP on but the patient declined stating he was not ready for it. Call light within reach
[2025-02-21 03:00] VITALS: BP 145/60; PULSE 71; RESP 18; TEMP 36.8; O2SAT 95
[2025-02-21] MEDS: ACETAMINOPHEN 500 MG TABLET 1000 MG PO ×2 (03:44→09:39)
[2025-02-21 04:26] VITALS: BP 157/77; PULSE 75; RESP 20; TEMP 36.8; O2SAT 95
[2025-02-21 06:48] LABS: Hematocrit* 38.6 % (37.0-53.0); Hemoglobin* 12.3 gm/dL (13.5-17.5); Mean Corpuscular HGB Conc 32 gm/dL (32-36); Mean Corpuscular Hemoglobin 30 pg (26-34); Mean Corpuscular Volume 94 fL (80-100); Red Blood Count* 4.10 m/uL (4.30-5.90); White Blood Count* 9.61 K/uL (4.50-11.00)
[2025-02-21 06:49] LABS: Slide Review Reflex No
[2025-02-21 07:02] LABS: Chloride* 103 mmol/L (96-114); Potassium* 4.4 mmol/L (3.6-5.1); Sodium* 135 mmol/L (135-149)
[2025-02-21 07:05] LABS: Anion Gap 6 mEq/L (7-15); Blood Urea Nitrogen* 35 mg/dL (7-30); Carbon Dioxide* 26 mmol/L (20-32); Creatine Kinase* 841 U/L (54-186); Creatinine* 1.5 mg/dL (0.5-1.5); Est. Creatinine Clearance* 39.95; Estimated Glomerular Filt Rate 45 ml/min
[2025-02-21 07:06] LABS: Calcium* 8.5 mg/dL (8.4-10.6); Glucose* 250 mg/dL (60-115)
[2025-02-21 07:28] VITALS: BP 158/77; PULSE 74; RESP 14; TEMP 36.8; O2SAT 93
--- NOTE | 2025-02-21 07:28 | CRLHL7_ITS ---
For Patients: As a result of the Century Cures Act, medical imaging exams and procedure reports are released immediately into your electronic medical record. You may view this report before your referring provider. If you have questions, please contact your health care provider. INDICATION: Dyspnea COMPARISON: February 18, 2025 TECHNIQUE: A single view study was obtained as a portable CXR,February 21, 2025 FINDINGS: As discussed below IMPRESSION: 1. Unchanged enlargement of the heart and prominence of the mediastinum. Sternotomy. 2. Pacer normally located. Findings likely due to mild edema similar to the prior examination. 3. No large effusions. No pneumothorax Dictated by Nghia Heath MD @ 02/21/2025 7:55:49 AM (Electronically Signed)
[2025-02-21 07:31] LABS: NT Pro B Type NatriureticPept* 1710 pg/mL (See Note)
[2025-02-21] MEDS: INSULIN ASPART 100 UNIT/ML SUBCUT (08:15)
[2025-02-21] MEDS: SENNOSIDES/DOCUSATE TABLET 1 TAB PO (09:40)
[2025-02-21] MEDS: METOPROLOL SUCCINATE (XL) 50 MG TAB PO (09:40)
[2025-02-21] MEDS: RIVAROXABAN 10 MG TABLET PO (09:40)
[2025-02-21] MEDS: AMLODIPINE 5 MG TABLET PO (09:40)
--- NOTE | 2025-02-21 09:57 | PM.DS1 ---
DS: Providers Provider Date Seen: 02/21/25 Date of admission: 02/18/25 17:55 Primary care physician: Trace Quijano MD Admitting Clinician: Jluis Oliveira MD Consults: 02/18/25 18:56 Consult to Occupational Therapy [CONS] Routine Comment: Reason(s) for OT Consult:: Evaluate and Treat Any Restrictions?:: No Restrictions Consult to Physical Therapy [CONS] Routine Comment: Reason(s) for PT Consult:: Evaluate and Treat Any Restrictions?:: No Restrictions Consult to Siene Maker [CONS] Routine Comment: Reason for Consult:: Social Service Consult 02/18/25 20:05 Consult to Physician [CONS] Routine Comment: Consulting Provider: Orthopedics, [facility] Has provider been notified: No 02/19/25 14:36 Consult to Occupational Therapy [CONS] Routine Comment: Reason(s) for OT Consult:: Evaluate and Treat Any Restrictions?:: See Comment Comment: evaluate and treat s/p left hip hemiarthroplasty Consult to Physical Therapy [CONS] Routine Comment: Reason(s) for PT Consult:: Evaluate and Treat Any Restrictions?:: Wt Bearing as Tolerated Comment: s/p left hip hemiarthroplasty Consult to Siene Maker [CONS] Routine Comment: Reason for Consult:: Discharge Planning Needs 02/20/25 07:27 Consult to Respiratory Therapy [CONS] Routine Comment: Reason(s) for RT Consult:: Consult Attending Physician on discharge: Leatha Mata PA-C DS: Diagnosis Discharge Diagnosis (1) Hip fracture, left: Status: Acute Problem details: Day 1 s/p left hip cemented bipolar hemiarthroplasty (02/19/25, Dr. Oliveira) - Mepilex dressing will remain in place x 7-10 days. Dressing is waterproof. May shower. Remove dressing sooner if this becomes saturated. - Weight bear as tolerated with walker for assistance. - Posterior hip precautions. Zihlman abduction pillow in place when in bed. - For pain management, recommend ice, elevation, Tylenol and Oxycodone PRN. I spoke with nursing staff and Dr. Farah regarding increasing Ramses's Oxycodone to 5-10 mg Q2H. This increase may cause Ramses to become more hypoxic at night due to his GERMÁN. He will require a CPAP at night. His family intend on bringing this for him. - For DVT prophylaxis: Xarelto 10 mg daily for 35 days after which he will resume aspirin 325 mg. I also recommend ankle pumps when sedentary and frequent ambulation. - Patient will follow-up with myself in 2 weeks for wound check. If transportation is a challenge, nursing staff at his SNF may perform this wound check and notify our clinic with any concerns. - Follow-up with Dr. Oliveira in 6 weeks. - Notify Orthopedics with any questions or concerns. ([phone]) -02/20: Pain controlled. PT OT recommends short-term rehab. -02/21 DC to rehab (2) Elbow pain: Status: Acute Problem details: -CT scan revealed subtle nondisplaced radial neck fracture. -pain management, sling as needed for comfort. - Spoke with therapy regarding a platform walker to support Ramses's left elbow and avoid pressure to the radial head/neck. -left arm sling (3) Rhabdomyolysis: Status: Acute Problem details: -02/19: No CRISTINE secondary to rhabdomyolysis -trend CK -patient received IV fluids but due to pulmonary edema, with been careful with the amount of IV fluids he has been taking. -02/20: Trending up, IV fluid in, slow rate due to congestive heart failure and pulmonary edema. (4) HFrEF (heart failure with reduced ejection fraction): Status: Chronic Problem details: - diastolic dysfunction, sees Cardiology as outpatient - continue Metoprolol; holding Dapagliflozin and Imdur preoperatively. Pharmacy to confirm if he still on Bumex - CXR shows moderate cardiomegaly and mild pulmonary edema - monitor for fluid overload perioperatively, will hold off on IVF until NPO - last TTE 11/2022: 1. Technically challenging echocardiogram. 2. Normal left ventricular chamber size. Abnormal ventricular septal motion due to pacing. 3. Calculated left ventricular ejection fraction (modified Garcia technique) is 50 %. 4. Mild concentrically increased left ventricular wall thickness. 5. Mild mitral valve regurgitation. 6. Estimated right ventricular systolic pressure is 38 mmHg. 7. The EF has improved compared to the previous echo. Estimated EF: 50-55% Normal left ventricular chamber size. Mild concentrically increased left ventricular wall thickness. Low-normal left ventricular systolic function. Calculated left ventricular ejection fraction (modified Garcia technique) is 50 %. Abnormal ventricular septal motion due to pacing. Grade 2 left ventricular diastolic dysfunction consistent with moderately increased left ventricular filling pressure. 02/19: He used to be on a diuretic but it seems he stopped it few weeks ago, unknown reason. -Patient denies chest pain or discomfort, shortness of breath, orthopnea or a recent increase in his weight. (5) GERMÁN on CPAP: Status: Chronic Problem details: - family will bring in CPAP - pulmonary hygiene perioperatively, incentive spirometry (6) Pacemaker: Status: Chronic Problem details: -last interrogation October 2024 (7) CKD stage 3a, GFR 45-59 ml/min: Status: Acute Problem details: -avoid nephrotoxic medications -monitor with a.m. labs -02/19: No CRISTINE secondary to rhabdomyolysis (8) Insulin dependent diabetes mellitus: Status: Chronic Problem details: - last A1C 6.9, October 2024 - on Metformin, Glimepiride, and BID 70/30 (53 in am, 30-50 in pm) - holding perioperatively while NPO - glucose checks ACHS, insulin sliding scale (9) Hypertension: Status: Acute Problem details: -continue metoprolol and amlodipine (10) Fall: Status: Acute Problem details: -ground level mechanical fall prior to 11:00 a.m., 02/18 -resulting in left hip fracture, left elbow pain -CK 477 (11) Hypercholesterolemia: Status: Acute Problem details: -continue statin DS: Summary Hospital Course Hospital Course: Patient with past medical history of congestive heart failure, CKD stage stage IIIA, presented with left hip fracture and an impacted left radial head fracture. s/p left hip cemented bipolar hemiarthroplasty (02/19/25, Dr. Oliveira). The left radial fracture is treated conservatively. Patient was noticed to have mild rhabdomyolysis but on discharge his CK levels were going down. Patient was noticed to have fluid overload and when asked about diuretics he said he stopped them for unknown reason, I suggested that he talks to his PCP and if needed to resume his diuretics. I did not resume them here at the hospital because of the rhabdomyolysis and the need to give him gentle hydration. Time Spent with Patient Time attestation: Total time spent providing and/or coordinating discharge services: Exam Narrative: Exam Narrative: Physical exam GENERAL: Comfortable, no acute distress. HEAD AND NECK: Atraumatic, normocephalic CARDIOVASCULAR: RRR. Normal S1, S2. No murmurs. RESPIRATORY: Clear to auscultation B/L. Good air entry B/L. No wheezes or rhonchi. NEUROLOGY: Alert, awake, Normal speech. . PSYCH: Normal mood, normal affect. MSK: Lt arm sling Const: Vital Signs, click to edit/add: Vital Signs - 24 hr 02/20/25 11:00 02/20/25 15:00 02/20/25 15:00 Temperature 97.7 F 98.5 F Pulse Rate Pulse Rate [Left D orsalis Pedis] Pulse Rate [Left P ulse Oximeter] 71 88 Respiratory Rate 24 24 20 Blood Pressure Blood Pressure [Ri ght Arm] 144/78 H 150/70 H Pulse Oximetry 88 93 Oxygen Delivery Me thod Nasal Cannula Nasal Cannula Oxygen Flow Rate 1 2 02/20/25 18:00 02/20/25 19:00 02/20/25 23:00 Temperature 98.5 F Pulse Rate Pulse Rate [Left D orsalis Pedis] Pulse Rate [Left P ulse Oximeter] 78 77 Respiratory Rate 20 18 Blood Pressure Blood Pressure [Ri ght Arm] 142/74 H 145/62 H Pulse Oximetry 91 94 91 Oxygen Delivery Me thod Room Air Nasal Cannula Oxygen Flow Rate 2 02/20/25 23:00 02/21/25 03:00 02/21/25 04:26 Temperature 98.3 F 98.3 F Pulse Rate 75 Pulse Rate [Left D orsalis Pedis] 73 Pulse Rate [Left P ulse Oximeter] 77 71 Respiratory Rate 18 18 20 Blood Pressure 157/77 H Blood Pressure [Ri ght Arm] 145/60 H Pulse Oximetry 95 95 Oxygen Delivery Me thod Nasal Cannula Room Air Oxygen Flow Rate 2 02/21/25 07:28 Temperature 98.2 F Pulse Rate Pulse Rate [Left D orsalis Pedis] Pulse Rate [Left P ulse Oximeter] 74 Respiratory Rate 14 Blood Pressure Blood Pressure [Ri ght Arm] 158/77 H Pulse Oximetry 93 Oxygen Delivery Me thod Room Air Oxygen Flow Rate DS: Data Data Completed and Pending Labs on day of discharge: Labs from last 24 hours 02/21/25 05:45 WBC 9.61 RBC 4.10 L Hgb 12.3 L Hct 38.6 MCV 94 MCH 30 MCHC 32 Plt Count 108 L Sodium 135 Potassium 4.4 Chloride 103 Carbon Dioxide 26 Anion Gap 6 L BUN 35 H Creatinine 1.5 Estimated Creat Clear 39.95 Estimated GFR 45 Glucose 250 H Calcium 8.5 Total Creatine Kinase 841 H NT-Pro-B Natriuret Pep 1710 H Discharge Plan Discharge Disposition: Xfer [facility] Date of Admission: 02/18/25 17:55 Attending Provider on Discharge: Kristin Rodriguez Consulting Providers: Lori Asher; Jluis Oliveira; Walt Stinson Primary Care Provider: Trace Quijano Discharge Medications: New acetaminophen 500 mg tablet 500 - 1,000 mg PO Q4-6H MDD 4,000 mg per day PRN (Reason: pain) Qty: 100 0RF oxycodone 5 mg tablet 2.5 - 5 mg PO Q4-6H MDD 6 tabs per day PRN (Reason: pain) Qty: 42 0RF Rx Instructions: Take as needed for postop pain: 2.5 mg mild pain, 5 mg moderate-severe pain; wean as tolerated sennosides [Senna Lax] 8.6 mg tablet 8.6 - 17.2 mg PO BID PRN (Reason: constipation) Qty: 60 0RF Rx Instructions: Hold if experiencing loose stools Xarelto 10 mg tablet 10 mg PO DAILY 33 Days Qty: 33 0RF Continued atorvastatin 40 mg tablet 40 mg PO HS magnesium oxide 400 mg (241.3 mg magnesium) Tablet 400 mg PO BIDWM Qty: 60 0RF isosorbide mononitrate 30 mg tablet extended release 24 hr 15 mg PO DAILY metformin 1,000 mg tablet 1,000 mg PO BIDWMEAL glimepiride 4 mg tablet 4 mg PO DAILY amlodipine 5 mg tablet 5 mg PO DAILY metoprolol succinate 50 mg tablet extended release 24 hr 50 mg PO BID Novolin 70/30 U-100 Insulin 100 unit/mL (70-30) suspension 53 unit subcut BID nitroglycerin 0.4 mg tablet, sublingual 0.4 mg sublingual Q5M PRN dapagliflozin propanediol [Farxiga] 10 mg tablet 10 mg PO DAILY Held aspirin 325 mg tablet 325 mg PO DAILY Hold Instructions: Resume on 03/28/25. May resume taking 325 mg aspirin once daily after Xarelto regimen is complete. Discharge Orders: Discharge Order (Routine); Ordered 02/21/25 Ordered By: Kristin Rodriguez Additional Instructions: You need to follow up with primary care physician to discuss diuretics (water pill) as you have signs of fluid retention. We did not start them at the hospital because you had rhabdomyolysis which actually is improving as your creatinine kinase level is trending down. Follow up labs for kidney function as you had a case known as rhabdomyolysis. Patient needed low-flow 1-2 L per minute oxygen by nasal cannula intermittently. He is encouraged to use incentive spirometry. Activity Level: Activity as Tolerated, Weight Bearing as Tolerated, Use Cane and Use Walker Activity Detail: Wound: ? Remove surgical dressing after 1 week. Remove dressing sooner if integrity is in question. ? No immersing wound in water; showering okay; light scrub with your hand and body soap, rinse, dab dry ? Sutures are under the skin, will dissolve; allow surgical glue to come off naturally; do not scrub the wound or apply ointments/lotions ? Call our office with any redness that streaks, excessive drainage from the wound, or wound gapping. Ice/Elevate: ? Ice as needed for swelling and discomfort; elevate extremity frequently above the heart. Wedge Pillow: - In place between legs when in bed or in recliner for 6 weeks. Motion/Exercise: ? Weight bear as tolerated operative extremity (walker/cane for ambulation assistance as needed) ? Per PT/OT. Posterior hip precautions. ? Straight leg raises daily: 1-2 sets of 10 reps Pain Medications: ? Oral narcotic as prescribed. Wean as tolerated. Additional acetaminophen and ibuprofen as needed. Blood Clot Prevention (DVT): ? Medication: 35 days of Xarelto 10 mg once daily. May resume 325mg aspirin as he has previously taken after Xarelto course is complete. Driving: ? Do not drive while taking narcotic pain medication ? Anticipate 4-6 weeks no driving if operative leg is driving leg Dental: ? No elective dental work for 3 months post-op. If there is an urgent/emergent dental need, contact our office for an antibiotic prescription. Smoking/Alcohol: ? Do not smoke; do no drink alcohol especially when taking postoperative oral narcotic medication Seek Care from you Primary Care Provider if you experience the following issues in the postoperative phase and beyond: ? Bacterial infections such as: pneumonia, bacterial skin infection (cellulitis), UTI, high fever, chills unrelated to the operative body part - call your primary care physician urgently for treatment in hopes to protect your health and the metal implant. Referrals: ? PT, OT per patient preference - evaluate & treat total hip arthroplasty protocol, posterior approach (gait training, ROM, ADLs) Vaccines: ? No vaccines until 4-6 weeks postop Follow-up: - With PA-C in 1-2 weeks - With ortho surgeon 6 weeks postop If there are any acute concerns regarding your surgery, please call our orthopedic clinic ([phone]) Discharge Diet: Diabetic, Heart Healthy (2 gm sodium, low fat) and 2 gm Sodium Follow Up Appointments: Trace Quijano MD [Primary Care Provider, [facility]] Referral Note: discuss diuretics as pt has signs of fluid retention. Follow up labs for kidney function, pt has rhabdomyolysis. Problems: HFrEF (heart failure with reduced ejection fraction); CKD stage 3a, GFR 45-59 ml/min; Rhabdomyolysis Forms: [facility] Info Instructions Admit to: SNF Discharge Potential: Good Length of Stay: <30 days Can use facility standing orders?: Yes Code Status: Full Code TEDs: N/A Rehab Potential: Good Therapy: Physical Therapy and Occupational Therapy Therapy Orders: Evaluate and Treat and Total Hip Precautions Therapy Orders Additional Information: Posterior approach, wedge pillow while sleeping in bed/recliner x6 weeks Oxygen: Yes Oxygen Delivery Method: Nasal Cannula Oxygen Flow Rate: low-flow 1-2 L/ min oxygen by nasal cannula intermittently for PO2 sat<92% Urinary Catheter: No Orders are good >30 days: Yes Signature: Kristin Rodriguez
--- NOTE | 2025-02-21 10:37 | PC.SOCIAL ---
Discharge planning: Pt was discharged to [facility] today in [place] for short-term rehab. Pt was transported via non-emergent EMS. Pt's signed the non-emergent EMS wheelchair transport form yesterday and it was given to the charge nurse on duty. blade worker provided a copy of The Important Message from Medicare form to pt's , Riddhi, today and explained the discharge appeal process. Pt's had no plans to appeal the pt's discharge and was pleased with the pt's discharge plan. Social work to follow-up as needed.
--- NOTE | 2025-02-21 10:41 | PC.NURSE ---
Discharge: patient pleasant and cooperative. Up with ez-stand and 2 assist. Vitals stable and WNL. intermittent o2 1-2L/nc if o2 <90%. Nurse to nurse given to Moriah LOPEZ at [facility]. Discussed need for follow up with , stated has appointment made for next week, informed to update PCP of current admission and inform nurse at [facility]. Dressing over left hip C/D/I. Pain managed with medication and ice. Informed patient and RN at [facility] of posterior hip precautions. Patient D/C @ 1035 via EMS.
== END 2025-02-21 10:35 | DRG 522 ==
LOC: ED 16:13 → MEDSURG 02-19 06:59
PROVIDERS: Student in an Organized Health Care Education/Training Program; Admitting Provider Orthopaedic Surgery; Emergency Provider Emergency Medicine; PCP Family Medicine; Visit Provider Physician Assistant
PROC: 0SRS0J9 Replacement of Left Hip Joint, Femoral Surface with Synthetic Substitute, Cemented, Open Approach (ICD-10-PCS; principal; 2025-02-19 09:35)
DX: S72.012A Unspecified intracapsular fracture of left femur, initial encounter for closed fracture (principal); I13.0 Hypertensive heart and chronic kidney disease with heart failure and stage 1 through stage 4 chronic kidney disease, or unspecified chronic kidney disease; M62.82 Rhabdomyolysis; I50.42 Chronic combined systolic (congestive) and diastolic (congestive) heart failure; Y92.71 Barn as the place of occurrence of the external cause; E11.40 Type 2 diabetes mellitus with diabetic neuropathy, unspecified; E11.22 Type 2 diabetes mellitus with diabetic chronic kidney disease; N18.31 Chronic kidney disease, stage 3a; G89.18 Other acute postprocedural pain; G47.33 Obstructive sleep apnea (adult) (pediatric); M25.522 Pain in left elbow; Z99.89 Dependence on other enabling machines and devices; W01.0XXA Fall on same level from slipping, tripping and stumbling without subsequent striking against object, initial encounter; Y93.H9 Activity, other involving exterior property and land maintenance, building and construction; E78.00 Pure hypercholesterolemia, unspecified; Z79.4 Long term (current) use of insulin; Z79.84 Long term (current) use of oral hypoglycemic drugs; I25.10 Atherosclerotic heart disease of native coronary artery without angina pectoris; Z95.1 Presence of aortocoronary bypass graft; Z95.0 Presence of cardiac pacemaker
CPT/HCPCS: 01230; 36415; 64450; 70450; 71045; 72125; 73070; 73200; 73501; 73502; 76942; 80048; 81001; 82550; 82962; 83605; 83735; 83880; 85025; 85027; 85610; 86850; 86900; 86901; 93005; 94761; 97110; 97161; 97165; 97530; 97535; 99100; 99284; 99285; A4565; A9270; C1776; J0690; J1100; J1171; J1815; J2250; J2405; J2704; J3010; J3475; J3490; J7030; J7120

== ENCOUNTER 2025-02-21 10:22 | Outpatient (CLI) | payer MEDICARE, BC, SELFPAY | END 2025-02-21 10:23 | disposition home or self-care (01) | LOC: AMB 02-26 18:01 | PROVIDERS: PCP Family Medicine; Visit Provider Internal Medicine | DX: M25.552 Pain in left hip (principal) | CPT/HCPCS: A0425; A0428 ==